=== PATIENT | female | born 1960 | race Caucasian/White ===

== ENCOUNTER 2023-03-14 12:52 | Outpatient (AMB) | payer MEDICARE, SELFPAY ==
[2023-03-14 13:00] VITALS: BP 106/62; PULSE 80; O2SAT 94; BMI 28.3
--- NOTE | 2023-03-14 13:00 | A.OFFPC_ITS ---
Vital Signs 03/14/23 13:00 Height 5 ft 6 in Weight 175 lb 0.752 oz BMI 28.3 BP 106/62 Blood Pressure Location Lt brachial Position Sitting Pulse 80 Pulse Source Pulse Oximeter Pulse Oximetry (%) 94 Oxygen Delivery Method Room Air Intake Visit Reasons: Annual Physical Traffic Counter Required: No Accompanied by: Self / Same As Patient Allergies clarithromycin [From Biaxin] Allergy (Unknown, Verified 03/14/23 13:19) Unknown codeine Allergy (Unknown, Verified 03/14/23 13:19) Unknown terbinafine [From Lamisil] Allergy (Unknown, Verified 03/14/23 13:19) Unknown trazodone Allergy (Unknown, Verified 03/14/23 13:19) unknown pregabalin [From Lyrica] Adverse Reaction (Intermediate, Verified 03/14/23 13:19) Depression - crying lotrimin spray Allergy (Mild, Uncoded 03/14/23 13:19) skin inflammation Medication List - Last Reconciled 03/14/23 by João Reyes MD albuterol sulfate 90 mcg/actuation (Ventolin HFA) 2 puffs inhalation Q6H PRN 30 days divalproex (Depakote) 125 mg PO QAM 90 days divalproex (Depakote) 500 mg PO BEDTIME 90 days duloxetine 60 mg PO BID 30 days gabapentin 600 mg PO TID 30 days hydrocortisone 1% 1 appl topical TID PRN NS hydroxyzine HCl Take 1 to 2 tablets PO every 8 hours PRN; ibuprofen 600 mg PO Q6H lorazepam 1 mg PO BID PRN 30 days pantoprazole 40 mg PO DAILY 90 days quetiapine 50 mg PO BID 90 days Tobacco use date assessed: 03/14/23 Dental Screening Dental Screen Date: 03/14/23 Did you have a dental visit in the last 12 months?: Yes Did you have a dental problem in the last 6 months where you did not have access to dental care?: No Was dental information given to patient?: Patient has dentist HPI Annual Physical HPI Details Patient comes in today for her annual physical examination States that she continues to be in pain all the time and feels miserable States that her gallbladder has been acting up a lot lately - has recurrent nausea, vomiting and abdominal cramping pain and every time she bends over, the symptoms get much worse She continues to refuse/decline offer to send her for further work ups including simple abdominal ultrasound, as she states that no matter what, she IS NOT going to have any surgery done even if the surgery is just a laparoscopic one States that she's had a couple of laparoscopic surgery done in the past and they still hurt a lot Would like to see if there is something that I can just prescribe for her to help with her abdominal pain She also continues to complain of severe pain in her feet - has significantly large corns and calluses on the soles of both feet and states that they hurt even when she is not on her feet and the pain escalates significantly when she tries to walk or put her weight on her feet Have offered to refer her to podiatry but she declined - states that she has already seen at least 2 podiatrists in the past and all they do is cut into her feet and they have not really made any difference so far as the lesions returned and she is still in a lot of pain Wants to know if there are any specialists that deal with corns/calluses that she can see Also continues to complain of severe low back pain and hip pains - states that her pain is often excruciating and she is tired of being in pain but declines offer to send her for imaging studies to update her condition Have also brought up referrals to the spine center here or to pain management as alternatives but she declined - states that she is NOT willing to go for any surgery or interventional procedures and will not change her mind on these Relates that she feels tired and fatigued all the time and throughout her visit today, her mood can swing from crying at one time to being animated instantaneously She also smells heavily of marijuana and states that smoking marijuana helps with some of her issues She has on and off headaches but denies any dizziness Denies any exertional chest pains, no increased SOB No change in bowel habits noted and she denies any acute urinary symptoms at present States that she had her labs done at the [facility] earlier this morning [facility] Medical History Suicide attempt by drug overdose Obesity (BMI 30-39.9) Bipolar disorder Anxiety Insomnia Constipation Chronic kidney disease (CKD), stage II (mild) Vitamin D deficiency Goiter Lichen planus Elevated liver enzymes Impaired fasting glucose Pure hypercholesterolemia Lumbar degenerative disc disease Surgical History History of laminectomy (~01/2011) History of spinal fusion (~01/2011) History of hysterectomy (~1993) Family History Father Scoliosis Mother Hypertension Cardiovascular disease Asthma Sister Asthma Arthritis Other Substance abuse Social History Housing: House Alcohol intake: current Alcohol intake frequency: holidays/special occasions only Patient Tobacco Use Status: Former Tobacco user e-Cigarette/Vaping Use: Never Used Second Hand Smoke Exposure: Yes Substance Use Type: Marijuana service: No Current occupational status: disabled Cognitive needs: No Hearing needs: No Vision needs: Yes Questionnaire PHQ-9 Over the last 2 weeks, how often have you been bothered by any of the following problems? 1. Little interest or pleasure in doing things: several days 2. Feeling down, depressed, or hopeless: several days 3. Trouble falling or staying asleep, or sleeping too much: several days 4. Feeling tired or having little energy: several days 5. Poor appetite or overeating: more than half the days 6. Feeling bad about yourself - or that you are a failure or have let yourself or your family down: not at all 7. Trouble concentrating on things, such as reading the newspaper or watching television: nearly every day 8. Moving or speaking so slowly that other people could have noticed. Or the opposite - being so fidgety or restless that you have been moving around a lot more than usual: more than half the days 9. Thoughts that you would be better off or of hurting yourself in some way: several days Total score: 12 Depression Screening Interpretation: Positive Depression Screening Follow-up: Existing condition and In treatment Depression Screening Done: Yes [id number] - PHQ-9 Billing: Yes Source: Developed by Drs. Robert Nina, Airam Lovett, Tay Jha and colleagues, with an educational cielo from [employer]. Thrive Questionnaire Date Thrive assessed: 03/14/23 I am a: Patient What is your living situation today?: I have a steady place to live Within the past 12 months, did the food you bought not last and you didn't have the money to get more?: Never true Within the past 12 months, did you worry whether your food would run out before you got money to buy more?: Never true Do you have trouble paying for medicines?: No Do you have trouble getting transportation to medical appointments?: No Do you have trouble paying your heating and electricity bill?: No Do you have trouble taking care of your child, family member or friend?: No Do you have trouble with day-to-day activities such as bathing, preparing meals, shopping, managing finances, etc.?: No Are you currently unemployed and looking for a job?: No Are you interested in more education?: No Please select the resources that you would like help with: None Currently or been in a relationship where the following occur: no concerns reported AUDIT C Alcohol Use Questionnaire (AUDIT-C) 1. How often do you have a drink containing alcohol?: Never 3. How often do you have six or more drinks on one occasion?: Never Total Score: 0 Score Reviewed/Action Taken: Yes LIYA-7 AMB Questionnaire LIYA-7 Date LIYA - 7 assessed: 03/14/23 Feeling nervous, anxious, or on edge: 3 = Nearly every day Not being able to stop or control worryin = Nearly every day Worrying too much about different things: 3 = Nearly every day Trouble relaxin = Nearly every day Being so restless that it is hard to sit still: 3 = Nearly every day Becoming easily annoyed or irritable: 3 = Nearly every day Feeling afraid as if something awful might happen: 1 = Several days Total LIYA-7 score (0-4 normal; 5-9 mild; 10-14 moderate; 15-21 severe): 19 Source: Developed by Drs. Robert Nina, Airam Lovett, Tay Jha and colleagues, with an educational cielo from [employer]. Review of Systems Const Reports fatigue, Denies fever(s) and Reports headache(s) (occasional) Eyes Denies blurry vision, Denies irritation and Denies itchy eyes ENT Denies dysphagia, Denies dizziness, Denies otalgia, Reports headache(s) (occasional), Reports neck pain, Denies odynophagia and Denies sore throat Card Denies chest pain, Denies palpitations and Reports dyspnea on exertion (mild) Resp Denies cough, Reports dyspnea on exertion (mild) and Denies wheezing GI Reports abdominal pain (recurrent, frequent, including over the RUQ area), Reports bloating (at times), Denies dysphagia, Denies heartburn, Reports diarrhea (intermittent - has IBS), Reports nausea (recurrent), Denies odynophagia and Reports vomiting (on and off) Denies difficulty voiding, Denies nocturia and Denies dysuria Musc Reports back pain (over the lower back - chronic) and Reports neck pain Skin/Breast Details: (+) onycholysis of toenails on both feet; (+) very large and painful corns/calluses on the soles of both feet Denies breast pain, Denies breast mass, Denies change in pigmentation, Denies lesions, Denies rash and Denies unusual bruising Neuro Denies dizziness and Reports headache(s) (occasional) Psych Reports anxiety, Reports depression (better controlled) and Denies suicidal ideation Endo Reports fatigue and Denies palpitations Rajinder/Lymph Denies easy bruising Aller/Immun Denies itchy eyes and Denies wheezing Physical exam (Primary Care) Vital Signs: Last Vital Signs Pulse 80 03/14/23 13:00 BP 106/62 03/14/23 13:00 Pulse Ox 94 03/14/23 13:00 Oxygen Delivery Method Room Air 03/14/23 13:00 BMI result Body Mass Index 28.3 Tobacco/Smoking Status: Tobacco use Status Tobacco use date assessed 03/14/23 03/14/23 13:09 Patient Tobacco Use Status Former Tobacco user 03/14/23 13:09 e-Cigarette/Vaping Use Never Used 03/14/23 13:09 PHQ-9: PHQ-9 Score PHQ-9: Total score 12 03/14/23 13:09 Depression Screening Interpretation: Positive Depression Screening Follow-up: Existing condition and In treatment Thrive Assessment: Date of Thrive Assessment Date Thrive assessed 03/14/23 03/14/23 13:09 Currently or been in a relationship where the following occur: no concerns reported Const General: no acute distress, alert and tired appearing Orientation/consciousness: patient oriented x3 HENMT Head: Yes normocephalic and Yes atraumatic Ears: TM's normal bilaterally and EAC's normal General nose exam: No nasal discharge present Face and sinus: Yes normal facial exam and Yes sinuses nontender Teeth and gingiva: dentition normal Throat: Yes posterior oropharynx normal and Yes tonsils normal (no TP congestion) Eyes Eyelids: Yes eyelids normal Conjunctivae: conjunctivae normal Pupils: Equal, round and reactive pupils present EOM: EOMs intact bilaterally Neck Neck: Yes no lymphadenopathy and Yes supple Thyroid: Thyroid normal Resp Auscultation: clear to auscultation bilaterally, no rales and no wheezes Cardio Rate: regular rate Rhythm: regular rhythm Heart sounds: no murmurs GI Palpation (GI): Soft to palpation, Tenderness to palpation present (GI) (diffuse, as well as over the RUQ area), no guarding, not rigid, No hepatosplenomegaly present and No Rebound tenderness present Auscultation: normal bowel sounds General: Yes no CVA tenderness Back/Spine/Pelvis Back: no CVA tenderness Thoracic/Lumbar Spine: lumbar spinal tenderness Sacroiliac joints: bilaterally tender to palpation Skin Rashes: no rashes Neuro General: patient oriented x3, moves all extremities, no focal motor deficits and CN's II-XI intact bilaterally Cranial nerves: Yes Equal, round and reactive pupils present Cognition (Neuro): normal cognition Gait exam (Neuro): Normal gait present Extrem Other: (+) onycholysis of toenails on both feet; (+) very large and tender (on palpation) corns and calluses on the soles of both feet; (+) 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 General: Yes no clubbing, cyanosis or edema Psych Affect: Labile affect present Assessment and Plan Assessment & Plan (1) Annual physical exam: Code(s): Z00.00 - Encounter for general adult medical examination without abnormal findings Plan: Will try to follow up the results of her labs done at the [facility] earlier this morning - patient is advised that we will check back with her regarding her results if there are any significantly unusual or abnormal results She is due for her colonoscopy, mammogram (last done in 2019) and bus matron exam and pap smear but she declined all of these Also declined offer for Cologuard testing as an alternative to her colonoscopy (2) Abdominal pain: Code(s): R10.9 - Unspecified abdominal pain Qualifiers: Abdominal location: unspecified location Qualified Code(s): R10.9 - Unspecified abdominal pain Plan: Has diffuse pain, including over the RUQ Patient is convinced that her symptoms are due to her gallbladder but she refuses to go for any imaging studies, including a simple abdominal US, as she states that she will not agree to go for surgery anyway so going for work ups is going to be just a waste of time She is looking for some Rx to help with her spasms - is advised that the only medication we prescribe that can help with GI spasms is Dicyclomine and these often help more with bowel spasms and may not really work at all for gall bladder spasms but patient would like to get an Rx for this to try anyway Have discussed with her that if surgery is inevitable, an elective surgery would be much easier and associated with less complications rather than waiting for when emergency surgery is indicated, such as in acute cholecystitis or cholangitis, wherein she would then have a much higher perioperative complications and even mortality but she remains unconvinced and will not go for additional work ups Have also advised that she can call for orders at any time if she changes her stance on this (3) Pure hypercholesterolemia: Code(s): E78.00 - Pure hypercholesterolemia, unspecified Plan: Reinforced low cholesterol diet Will try to follow up the results of her cholesterol levels done with her labs earlier today Patient continues to decline Rx for her cholesterol (4) Lumbar degenerative disc disease: Code(s): M51.36 - Other intervertebral disc degeneration, lumbar region Plan: Reinforced activity and weight-lifting restrictions Is now off opioids and states that her low back pain was somewhat manageable through smoking marijuana and with Gabapentin 600 mg TID and Duloxetine 60 mg BID for a while but lately, her pain has gotten worse again Lumbar spine x-rays done back in March 2021 did not show any acute findings - has old postsurgical changes and lumbar disc disease She declines offer to send her for lumbar spine MRI or CT for further evaluation Also declined offer to refer her to the [facility] or to pain management - is adamant that she will not have any surgeries or any type of invasive procedure or interventional treatments done Advised that other that those mentioned, I honestly do not know what else I can do to help her with her low back pain Have advised her that she can call at any time if she changes her mind about any of these and we can always order them if she is willing to pursue these (5) Onychomycosis: Code(s): B35.1 - Tinea unguium Plan: S/P Tx by podiatry - her toenails appear to be much more manageable now Follow up with podiatry as scheduled although she has not been back to see them in a while (6) Corns and callus: Code(s): L84 - Corns and callosities Plan: She has severe and large corns and calluses on both feet, which are most likely the source of majority of the pain in her feet Have advised that I do not know of any specialists that deal only or primarily with corns/calluses and that podiatry would be the specialty she will have to see but she declines referral - states that she has seen them at least twice in the past and all they want to do is cut into her feet Advised that outside of podiatry referral, I also do not know what else I can do to help with her feet issues and that she can always call for podiatry referral at any time if she changes her mind on this (7) History of gastric ulcer: Code(s): Z87.11 - Personal history of peptic ulcer disease Plan: Dietary restrictions reinforced Continue Pantoprazole 40 mg QD (8) Suicide attempt by drug overdose: Code(s): T50.902A - Poisoning by unspecified drugs, medicaments and biological substances, intentional self-harm, initial encounter Plan: Required hospital and ICU admission as well as Narcan drip; was admitted from 05/17/2022 to 05/25/2022 Currently denies any suicidal ideation or intent Her is now in charge of all of her meds and keeps them in a lock box and dispense them to her only when it is time to take them Follow up with psychiatry as scheduled (9) Anxiety: Code(s): F41.9 - Anxiety disorder, unspecified Plan: Continue Lorazepam 1 mg Q HS PRN; is also on Seroquel 50 mg BID, Depakote ER 125 mg Q AM 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 and Depakote ER 500 mg Q HS (10) Bipolar disorder: Code(s): F31.9 - Bipolar disorder, unspecified Qualifiers: Active/Remission status: currently active Current bipolar episode type: mixed Current episode severity: unspecified Qualified Code(s): F31.60 - Bipol ar disorder, current episode mixed, unspecified Plan: Continue Duloxetine 60 mg BID, Quetiapine 50 mg BID, Depakote ER 125 mg Q AM 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 and Depakote ER 500 mg Q HS (mood stabilizer) Follow up with psychiatry as scheduled Has been referred to [facility] for counseling previously Her affect was very labile throughout her visit today and she has gone from very tearful and sad to being very animated in her conversation within just a few seconds to then crying as she is in a lot of pain and does not know what to do but she again refuses all of the suggestions and recommendations that we have presented to her during her visit today Chidi is with her through out this whole visit and even he could not convince her to at least get some work ups done for her gallbladder and abdominal issues Plan Follow up in 4 months Medications: New dicyclomine 20 mg PO TID PRN 30 tabs 1RF abdominal cramping Review Patient declined Mammogram: 03/14/23 Declined Pap Smear: 03/14/23 Patient declined Colonoscopy: 03/14/23 Patient declined Colon Cancer Screen Lab: 03/14/23 Coding Level of Care Code Est Pt Prev Care 40-64y(65682) Diagnoses Annual physical exam Z00.00 Abdominal pain, unspecified abdominal location R10.9 Abdominal location: unspecified location Pure hypercholesterolemia E78.00 Lumbar degenerative disc disease M51.36 Onychomycosis B35.1 Corns and callus L84 History of gastric ulcer Z87.11 Suicide attempt by drug overdose T50.902A Anxiety F41.9 Bipolar affective disorder, current episode mixed, current episode severity unspecified F31.60 Active/Remission status: currently active Current bipolar episode type: mixed Current episode severity: unspecified
== END 2023-03-14 13:50 | disposition home or self-care (01) ==
PROVIDERS: PCP Internal Medicine; Visit Provider Internal Medicine
DX: Z00.00 Encounter for general adult medical examination without abnormal findings (principal); T50.902A Poisoning by unspecified drugs, medicaments and biological substances, intentional self-harm, initial encounter; F31.60 Bipolar disorder, current episode mixed, unspecified; R10.9 Unspecified abdominal pain; E78.00 Pure hypercholesterolemia, unspecified; M51.36 Other intervertebral disc degeneration, lumbar region; B35.1 Tinea unguium; L84 Corns and callosities; Z87.11 Personal history of peptic ulcer disease; F41.9 Anxiety disorder, unspecified
CPT/HCPCS: 99396

== ENCOUNTER 2023-06-05 08:56 | Outpatient (AMB) | payer MEDICARE, SELFPAY ==
--- NOTE | 2023-06-05 08:56 | MHC.PC.OV ---
Intake Visit Reasons: feet and spine issues/[phone] Allergies miconazole [From Remedy Antifungal] Allergy (Severe, Verified 06/05/23 09:45) skin in mouth peels clarithromycin [From Biaxin] Allergy (Unknown, Verified 06/05/23 09:45) Unknown codeine Allergy (Unknown, Verified 06/05/23 09:45) Unknown terbinafine [From Lamisil] Allergy (Unknown, Verified 06/05/23 09:45) Unknown trazodone Allergy (Unknown, Verified 06/05/23 09:45) unknown pregabalin [From Lyrica] Adverse Reaction (Intermediate, Verified 06/05/23 09:45) Depression - crying lotrimin spray Allergy (Mild, Uncoded 06/05/23 09:45) skin inflammation Medication List - Last Reconciled 06/05/23 by João Reyes MD albuterol sulfate 90 mcg/actuation (Ventolin HFA) 2 puffs inhalation Q6H PRN 30 days dicyclomine 20 mg PO TID PRN divalproex (Depakote) 125 mg PO QAM 90 days divalproex (Depakote) 500 mg PO BEDTIME 90 days duloxetine 60 mg PO BID 30 days gabapentin 600 mg PO TID 30 days hospital bed As directed hydrocortisone 1% 1 appl topical TID PRN NS hydroxyzine HCl Take 1 to 2 tablets PO every 8 hours PRN; ibuprofen 600 mg PO Q6H lorazepam 1 mg PO BID PRN 30 days mupirocin 2% 1 appl topical TID pantoprazole 40 mg PO DAILY 90 days quetiapine 50 mg PO BID 90 days [[facility] BED with Side Rails As directed] Tobacco use date assessed: 06/05/23 Dental Screening Dental Screen Date: 06/05/23 Did you have a dental visit in the last 12 months?: Yes Did you have a dental problem in the last 6 months where you did not have access to dental care?: No Was dental information given to patient?: Patient has dentist HPI feet and spine issues/[phone] HPI Details Patient's follow up visit / consultation today is done over video conference (iPhone/iPad/Google Meets/Doximity) - this is a TELEHEALTH visit Patient's current medications have been reviewed and verified with patient and/or caregiver/proxy and have been updated accordingly in the medication list Patient states that her younger brother recently and she has been feeling more depressed lately as a result Notes that her feet symptoms have actually been improving with her Rx lately so she is at least happy with that Relates that she has been experiencing increasing left shoulder pain and neck pain lately, especially over the upper interscapular areas just under the back of her neck - feels a bump over her vertebra somewhere along this area that she states has been there for a while now but feels that it has gotten bigger lately States that her left arm and fingers feel numb often Has also been experiencing some urinary incontinence for the past few weeks - states that she has not wet her bed but she often does not make it to bathroom in time Relates that she has completely no sensation of urinary or bladder fullness and usually just wakes up on her own after a while and she goes to the bathroom to empty her bladder before she has to go but has not been able to make it to the bathroom in time lately Still has occasional headaches but denies any dizziness Denies any chest pains, no increased SOB Still has on and off nausea and abdominal pain/cramping and on and off diarrhea / loose stools due to her IBS [facility] Medical History Suicide attempt by drug overdose Obesity (BMI 30-39.9) Bipolar disorder Anxiety Insomnia Constipation Chronic kidney disease (CKD), stage II (mild) Vitamin D deficiency Goiter Lichen planus Elevated liver enzymes Impaired fasting glucose Pure hypercholesterolemia Lumbar degenerative disc disease Surgical History History of laminectomy (~01/2011) History of spinal fusion (~01/2011) History of hysterectomy (~1993) Family History Father Scoliosis Mother Hypertension Cardiovascular disease Asthma Sister Asthma Arthritis Other Substance abuse Social History Housing: House Alcohol intake: current Alcohol intake frequency: holidays/special occasions only Patient Tobacco Use Status: Former Tobacco user e-Cigarette/Vaping Use: Never Used Second Hand Smoke Exposure: Yes Substance Use Type: Marijuana service: No Current occupational status: disabled Cognitive needs: No Hearing needs: No Vision needs: Yes Questionnaire PHQ-9 Over the last 2 weeks, how often have you been bothered by any of the following problems? 1. Little interest or pleasure in doing things: several days 2. Feeling down, depressed, or hopeless: several days 3. Trouble falling or staying asleep, or sleeping too much: several days 4. Feeling tired or having little energy: several days 5. Poor appetite or overeating: more than half the days 6. Feeling bad about yourself - or that you are a failure or have let yourself or your family down: not at all 7. Trouble concentrating on things, such as reading the newspaper or watching television: nearly every day 8. Moving or speaking so slowly that other people could have noticed. Or the opposite - being so fidgety or restless that you have been moving around a lot more than usual: more than half the days 9. Thoughts that you would be better off or of hurting yourself in some way: several days Total score: 12 Depression Screening Interpretation: Positive Depression Screening Follow-up: Existing condition and In treatment Depression Screening Done: Yes 59427 - PHQ-9 Billing: Yes Source: Developed by Drs. Robert Nina, Airam Lovett, Tay Jha and colleagues, with an educational cielo from [employer]. Thrive Questionnaire Date Thrive assessed: 06/05/23 I am a: Patient What is your living situation today?: I have a steady place to live Within the past 12 months, did the food you bought not last and you didn't have the money to get more?: Never true Within the past 12 months, did you worry whether your food would run out before you got money to buy more?: Never true Do you have trouble paying for medicines?: No Do you have trouble getting transportation to medical appointments?: No Do you have trouble paying your heating and electricity bill?: No Do you have trouble taking care of your child, family member or friend?: No Do you have trouble with day-to-day activities such as bathing, preparing meals, shopping, managing finances, etc.?: No Are you currently unemployed and looking for a job?: No Are you interested in more education?: No Please select the resources that you would like help with: None Currently or been in a relationship where the following occur: no concerns reported AUDIT C Alcohol Use Questionnaire (AUDIT-C) 1. How often do you have a drink containing alcohol?: Never 3. How often do you have six or more drinks on one occasion?: Never Total Score: 0 Score Reviewed/Action Taken: Yes LIYA-7 AMB Questionnaire LIYA-7 Date LIYA - 7 assessed: 06/05/23 Feeling nervous, anxious, or on edge: 3 = Nearly every day Not being able to stop or control worryin = Nearly every day Worrying too much about different things: 3 = Nearly every day Trouble relaxin = Nearly every day Being so restless that it is hard to sit still: 3 = Nearly every day Becoming easily annoyed or irritable: 3 = Nearly every day Feeling afraid as if something awful might happen: 1 = Several days Total LIYA-7 score (0-4 normal; 5-9 mild; 10-14 moderate; 15-21 severe): 19 Source: Developed by Drs. Robert Nina, Airam Lovett, Tay Jha and colleagues, with an educational cielo from [employer]. Review of Systems Const Reports fatigue, Denies fever(s) and Reports headache(s) (occasional) ENT Denies dysphagia, Denies dizziness, Denies otalgia, Reports headache(s) (occasional), Reports neck pain, Denies odynophagia and Denies sore throat Card Denies chest pain, Denies palpitations and Reports dyspnea on exertion (mild) Resp Denies cough, Reports dyspnea on exertion (mild) and Denies wheezing GI Reports abdominal pain (recurrent, frequent, including over the RUQ area), Reports bloating (at times), Denies dysphagia, Denies heartburn, Reports diarrhea (intermittent - has IBS), Reports nausea (recurrent), Denies odynophagia and Denies vomiting Reports urinary incontinence (see HPI) Musc Reports back pain (over the lower back - chronic), Reports neck pain and Reports radiating pain into limb (into the left arm - see HPI) Skin/Breast Details: (+) onycholysis of toenails on both feet; (+) very large and painful corns/calluses on the soles of both feet Denies rash Neuro Denies dizziness and Reports headache(s) (occasional) Psych Reports anxiety, Reports depression (increasing lately) and Denies suicidal ideation Endo Reports fatigue and Denies palpitations Rajinder/Lymph Denies easy bruising Aller/Immun Denies wheezing Physical exam (Primary Care) Vital Signs: Physical examination is not performed as visit / consultation today is done over videoconference - Telehealth visit All physical findings indicated here, if present, are as per patient's and / or caregivers / proxy's report and visual inspection over videoconference, if appropriate or applicable Tobacco/Smoking Status: Tobacco use Status Tobacco use date assessed 06/05/23 06/05/23 09:00 Patient Tobacco Use Status Former Tobacco user 06/05/23 09:00 e-Cigarette/Vaping Use Never Used 06/05/23 09:00 PHQ-9: PHQ-9 Score PHQ-9: Total score 12 06/05/23 09:00 Depression Screening Interpretation: Positive Depression Screening Follow-up: Existing condition and In treatment Thrive Assessment: Date of Thrive Assessment Date Thrive assessed 06/05/23 06/05/23 09:00 Currently or been in a relationship where the following occur: no concerns reported Telehealth Telehealth Location of provider rendering services: practice address Location of patient: address on file Patient Identification confirmed using: Name, : Yes Telehealth method: video ([employer] - [employer]) Patient verbally consented to treatment: Yes Patient verbally consented to billing insurance company: Yes Patient informed of any privacy concerns related to visit: Yes Minutes spent on Phone/Video with Pt.: 24 Assessment and Plan Assessment & Plan (1) Lumbar degenerative disc disease: Code(s): M51.36 - Other intervertebral disc degeneration, lumbar region Plan: Reinforced activity and weight-lifting restrictions Is now off opioids and states that her low back pain was somewhat manageable through smoking marijuana and with Gabapentin 600 mg TID and Duloxetine 60 mg BID for a while but lately, her pain has gotten worse again Lumbar spine x-rays done back in March 2021 did not show any acute findings - has old postsurgical changes and lumbar disc disease She declines offer to send her for lumbar spine MRI or CT for further evaluation but have advised patient that based on her recent symptoms, she will likely require an MRI for further evaluation but we will recheck/repeat her x-rays first and go from there She has also declined offer to refer her to the Spine Center here at [facility] [place] or to pain management as she remains adamant that she will not have any surgery or any type of invasive procedure or interventional treatment done to her spine Advised that other that those mentioned, I honestly do not know what else I can do to help her with her low back pain Have advised her that she can call at any time if she changes her mind about any of these and we can always order them if she is willing to pursue these (2) Urine incontinence: Code(s): R32 - Unspecified urinary incontinence Qualifiers: Urinary Incontinence type: urinary incontinence without sensory awareness Qualified Code(s): N39.42 - Incontinence without sensory awareness Plan: Patient is advised that her urinary symptoms are concerning for possible spinal cord compression (cauda equina syndrome) and she will likely require a lumbar and sacral spine MRI for further evaluation Will send her for repeat x-rays first and advised that we will check back with her as soon as her results are available for review (3) Cervical spine pain: Code(s): M54.2 - Cervicalgia Plan: Patient reports having a bump on her cervical spine that she feels has gotten bigger lately and coinciding with the symptoms in her left arm feeling worse Will send her for cervical spine x-rays [facility] for further evaluation She is also advised that depending on how her x-rays come out, she may require a cervical spine MRI (4) Left cervical radiculopathy: Code(s): M54.12 - Radiculopathy, cervical region Plan: Will check cervical spine x-rays for further evaluation but advised that an MRI may be needed at some point (5) Thoracic spine pain: Code(s): M54.6 - Pain in thoracic spine Plan: Will send her for thoracic spine x-rays as well for further evaluation (6) Pure hypercholesterolemia: Code(s): E78.00 - Pure hypercholesterolemia, unspecified Plan: Reinforced low cholesterol diet She is advised that we have not yet received any of her previous lab results so far and we will again try to obtain a copy of her labs results from when she had them done with [facility] sometime in February 2023 Patient continues to decline Rx for her cholesterol (7) Onychomycosis: Code(s): B35.1 - Tinea unguium Plan: S/P Tx by podiatry - her toenails appear to be much more manageable now Follow up with podiatry as scheduled although she has not been back to see them in a while (8) History of gastric ulcer: Code(s): Z87.11 - Personal history of peptic ulcer disease Plan: Dietary restrictions reinforced Continue Pantoprazole 40 mg QD (9) Suicide attempt by drug overdose: Code(s): T50.902A - Poisoning by unspecified drugs, medicaments and biological substances, intentional self-harm, initial encounter Plan: Required hospital and ICU admission as well as Narcan drip; was admitted from 05/17/2022 to 05/25/2022 Currently denies any suicidal ideation or intent Her is now in charge of all of her meds and keeps them in a lock box and dispense them to her only when it is time to take them Follow up with psychiatry as scheduled (10) Anxiety: Code(s): F41.9 - Anxiety disorder, unspecified Plan: Continue Lorazepam 1 mg Q HS PRN; is also on Depakote ER 125 mg Q AM to help with her cinetechnician anxiety and Depakote ER 500 mg Q HS Will increase her Seroquel from 50 mg BID to 50 mg in AM and 100 mg Q HS (11) Bipolar disorder: Code(s): F31.9 - Bipolar disorder, unspecified Qualifiers: Active/Remission status: currently active Current bipolar episode type: mixed Current episode severity: unspecified Qualified Code(s): F31.60 - Bipolar disorder, current episode mixed, unspecified Plan: Continue Duloxetine 60 mg BID, Depakote ER 125 mg Q AM to help with her cinetechnician anxiety and Depakote ER 500 mg Q HS (mood stabilizer) Will increase her Seroquel from 50 mg BID to 50 mg in AM and 100 mg Q HS She will also have her Gabapentin increased to 600 mg QID dosing and this should hopefully help with both her chronic pain as well as act as a mood stabilizer as well Follow up with psychiatry as scheduled She is currently receiving counseling from [facility] regularly and is advised to continue as scheduled Plan Follow up as scheduled in August 2023 Orders: Orders XR lumbar spine 2-3V Today M51.36 - Other intervertebral disc degeneration, lumbar region, R32 - Unspecified urinary incontinence, R39.198 - Other difficulties with micturition XR cervical spine 3V Today M54.12 - Radiculopathy, cervical region, M54.2 - Cervicalgia XR thoracic spine 3V Today M54.6 - Pain in thoracic spine XR sacrum coccyx min 2V Today R32 - Unspecified urinary incontinence, R39.198 - Other difficulties with micturition Medications: Changed From gabapentin 600 mg PO TID 30 days 90 tabs 0RF To gabapentin 600 mg PO QID 30 days 120 tabs 0RF From quetiapine 50 mg PO BID 90 days 180 tabs 1RF F31.60 - Bipolar disorder, current episode mixed, unspecified To quetiapine Take 1 tablet in AM and 2 tablets at bedtime orally; 90 days 180 tabs 1RF F31.60 - Bipolar disorder, current episode mixed, unspecified Coding Level of Care Code Tele Est Pt Level 4 (86159) Diagnoses Lumbar degenerative disc disease M51.36 Urinary incontinence without sensory awareness N39.42 Urinary Incontinence type: urinary incontinence without sensory awareness Cervical spine pain M54.2 Left cervical radiculopathy M54.12 Thoracic spine pain M54.6 Pure hypercholesterolemia E78.00 Onychomycosis B35.1 History of gastric ulcer Z87.11 Suicide attempt by drug overdose T50.902A Anxiety F41.9 Bipolar affective disorder, current episode mixed, current episode severity unspecified F31.60 Active/Remission status: currently active Current bipolar episode type: mixed Current episode severity: unspecified
== END 2023-06-05 10:34 | disposition home or self-care (01) ==
LOC: HO.HMGH 08:56
PROVIDERS: PCP Internal Medicine; Visit Provider Internal Medicine
DX: M51.36 Other intervertebral disc degeneration, lumbar region (principal); N39.42 Incontinence without sensory awareness; M54.2 Cervicalgia; M54.12 Radiculopathy, cervical region; M54.6 Pain in thoracic spine; E78.00 Pure hypercholesterolemia, unspecified; B35.1 Tinea unguium; Z87.11 Personal history of peptic ulcer disease; F41.9 Anxiety disorder, unspecified
CPT/HCPCS: 99214

== ENCOUNTER 2023-09-13 12:31 | Outpatient (AMB) | payer MEDICARE, SELFPAY ==
[2023-09-13 12:37] VITALS: BP 110/72; BMI 29.5
--- NOTE | 2023-09-13 12:37 | A.OFFPC_ITS ---
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: No Accompanied by: Spouse Allergies miconazole [From Remedy Antifungal] Allergy (Severe, Verified 09/13/23 12:54) skin in mouth peels clarithromycin [From Biaxin] Allergy (Unknown, Verified 09/13/23 12:54) Unknown codeine Allergy (Unknown, Verified 09/13/23 12:54) Unknown terbinafine [From Lamisil] Allergy (Unknown, Verified 09/13/23 12:54) Unknown trazodone Allergy (Unknown, Verified 09/13/23 12:54) unknown pregabalin [From Lyrica] Adverse Reaction (Intermediate, Verified 09/13/23 12:54) Depression - crying lotrimin spray Allergy (Mild, Uncoded 09/13/23 12:54) skin inflammation Medication List - Last Reconciled 09/13/23 by João Reyes MD albuterol sulfate 90 mcg/actuation (Ventolin HFA) 2 puffs inhalation Q6H PRN 30 days dicyclomine 20 mg PO TID PRN divalproex (Depakote) 125 mg PO QAM 90 days divalproex (Depakote) 500 mg PO BEDTIME 90 days duloxetine 60 mg PO BID 30 days gabapentin 600 mg PO QID 30 days hydrocortisone 1% 1 appl topical TID PRN NS lorazepam 1 mg PO BID PRN 30 days mupirocin 2% 1 appl topical TID pantoprazole 40 mg PO DAILY 90 days quetiapine Take 1 tablet in AM and 2 tablets at bedtime orally; 90 days [[facility] BED with Side Rails As directed] tizanidine 4 mg PO Q8H PRN 30 days Tobacco use date assessed: 06/05/23 Dental Screening Dental Screen Date: 06/05/23 HPI 6mth f/u HPI Details Patient comes in today for her follow up visit She continues to complain of increased pain all over, including over her neck, upper back, lower back, both feet, hips and legs States that she is in constant pain all over 12/12 She takes all of her current Rx as prescribed but she does not really know if they are even helping or not - states that her is the one who gives out her meds for her to take when it is time for them States that she has also been smoking marijuana lately to help and that any help is better than nothing Is currently requesting for a referral to pain management or specialists in [place] who she feels may be able to help her better - states that she will not go to any other doctors here in [facility] anymore and refuses to go to [facility] or any other [facility] hospitals here in the [facility] She appears somewhat distant and standoffish during her visit today and sometimes somewhat antagonistic when asked certain questions regarding her pain - states that no one would feel good when they are in constant and severe pain all day long It appears that she has already reached out to pain management in [place] as she then states that they have a PA there who will see patients and order the MRI and tests that she will need as she prefers to get all of the requisite testing that will be needed by pain management over in [place] as well and not have any of them done here locally Relates (+) occasional headaches but denies any dizziness Denies any chest pains, no increased SOB No nausea/vomiting, no abdominal pain No change in bowel habits noted [facility] Medical History Suicide attempt by drug overdose Obesity (BMI 30-39.9) Bipolar disorder Anxiety Insomnia Constipation Chronic kidney disease (CKD), stage II (mild) Vitamin D deficiency Goiter Lichen planus Elevated liver enzymes Impaired fasting glucose Pure hypercholesterolemia Lumbar degenerative disc disease Surgical History History of laminectomy (~01/2011) History of spinal fusion (~01/2011) History of hysterectomy (~1993) Family History Father Scoliosis Mother Hypertension Cardiovascular disease Asthma Sister Asthma Arthritis Other Substance abuse Social History Housing: House Alcohol intake: current Alcohol intake frequency: holidays/special occasions only Patient Tobacco Use Status: Former Tobacco user e-Cigarette/Vaping Use: Never Used Second Hand Smoke Exposure: Yes Substance Use Type: Marijuana service: No Current occupational status: disabled Cognitive needs: No Hearing needs: No Vision needs: Yes Questionnaire Thrive Questionnaire Date Thrive assessed: 06/05/23 LIYA-7 AMB Questionnaire LIYA-7 Date LIYA - 7 assessed: 06/05/23 Source: Developed by Drs. Robert Nnia, Airam Lovett, Tay Jha and colleagues, with an educational cielo from [employer]. Review of Systems Const Reports fatigue, Denies fever(s) and Reports headache(s) (occasional) ENT Denies dysphagia, Denies dizziness, Denies otalgia, Reports headache(s) (occa sional), Reports neck pain, Denies odynophagia and Denies sore throat Card Denies chest pain, Denies palpitations and Reports dyspnea on exertion (mild) Resp Denies cough, Reports dyspnea on exertion (mild) and Denies wheezing GI Reports abdominal pain (recurrent, frequent, including over the RUQ area), Reports bloating (at times), Denies dysphagia, Denies heartburn, Reports diarrhea (intermittent - has IBS), Reports nausea (recurrent), Denies odynophagia and Denies vomiting Reports urinary incontinence (see HPI) Musc Reports as per HPI, Reports back pain (over the lower back - chronic), Reports neck pain and Reports radiating pain into limb (into the left arm - see HPI) Skin/Breast Details: (+) onycholysis of toenails on both feet; (+) very large and painful corns/calluses on the soles of both feet Denies rash Neuro Denies dizziness and Reports headache(s) (occasional) Psych Reports anxiety, Reports depression (increasing lately) and Denies suicidal ideation Endo Reports fatigue and Denies palpitations Rajinder/Lymph Denies easy bruising Aller/Immun Denies wheezing Physical exam (Primary Care) BMI result Body Mass Index 29.5 Tobacco/Smoking Status: Tobacco use Status Tobacco use date assessed 06/05/23 06/05/23 09:00 Patient Tobacco Use Status Former Tobacco user 06/05/23 09:00 e-Cigarette/Vaping Use Never Used 06/05/23 09:00 Thrive Assessment: Date of Thrive Assessment Date Thrive assessed 06/05/23 06/05/23 09:00 Const General: no acute distress and alert Neck Neck: Yes no lymphadenopathy and Yes supple Thyroid: Thyroid normal Resp Auscultation: clear to auscultation bilaterally, no rales and no wheezes Cardio Rate: regular rate Rhythm: regular rhythm Heart sounds: no murmurs GI Palpation (GI): Soft to palpation and nontender Auscultation: normal bowel sounds General: Yes no CVA tenderness Back/Spine/Pelvis Back: no CVA tenderness Cervical Spine: Cervical spine tenderness Thoracic/Lumbar Spine: thoracic spinal tenderness and lumbar spinal tenderness Sacroiliac joints: bilaterally tender to palpation Skin Rashes: no rashes Extrem Other: (+) onycholysis of toenails on both feet; (+) very large and tender (on palpation) corns and calluses on the soles of both feet; (+) 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 BASED ON PREVIOUS EXAM - exam NOT done or repeated today General: Yes no clubbing, cyanosis or edema Assessment and Plan Assessment & Plan (1) Lumbar degenerative disc disease: Code(s): M51.36 - Other intervertebral disc degeneration, lumbar region Plan: Reinforced activity and weight-lifting restrictions Patient states that her low back pain has been somewhat manageable through smoking marijuana and with Gabapentin 600 mg TID and Duloxetine 60 mg BID for a while but her pain has gotten a lot worse lately and states that she does not know anymore if anything is helping Lumbar spine x-rays done back in March 2021 revealed (+) old postsurgical changes and lumbar disc disease She has been sent for repeat x-rays sometime last year but she did not get them done and has continually declined offer to send her for lumbar spine MRI or CT for further evaluation - states that she will NOT go to [facility] or any 2-star hospital here in [facility] to get anymore tests done She has also declined offer to refer her to [place] [facility] [facility] [place] [facility] or to pain management as she remains adamant that she will not have any surgery or any type of invasive procedures or interventional treatments done to her spine here and is asking now to be referred to specialists in [place] instead at the [facility] - referral done (2) Degenerative joint disease of cervical spine: Code(s): M47.812 - Spondylosis without myelopathy or radiculopathy, cervical region Qualifiers: Spinal osteoarthritis complication: unspecified spinal osteoarthritis Qualified Code(s): M47.812 - Spondylosis without myelopathy or radiculopathy, cervical region Plan: Cervical spine x-rays done at [facility] in 2023 revealed (+) mild to moderate degenerative changes of the cervical spine Will refer her to [place] for this issue as well (3) Thoracic spine pain: Code(s): M54.6 - Pain in thoracic spine Plan: She was previously sent for thoracic spine x-rays as well but this was not done and no results are available regarding this Per request, we will refer her to [place] to see specialists there regarding her chronic pain (4) Pure hypercholesterolemia: Code(s): E78.00 - Pure hypercholesterolemia, unspecified Plan: Results of her labs done at [facility] back in February 2023 reviewed and discussed with patient - she is advised that her cholesterol levels were elevated on her recent labs - total cholesterol was at 223 mg/dl and LDL cholesterol at 158 mg/dl Reinforced low cholesterol diet Patient continues to decline Rx for her high cholesterol - states now that she does not ever recall that I spoke to her in the past about high cholesterol levels Have reminded her, based on review of her records as far back as 2017, that she has not had her cholesterol levels done between 07/2017 until 02/2023 and that her numbers from 2011 through 2017 were also high but as she is a vegetarian, she chose to continue on diet modification and not take any Rx Advised that we can follow up on these again later on when her pain is better controlled and her mood is better (5) Urine incontinence: Code(s): R32 - Unspecified urinary incontinence Qualifiers: Urinary Incontinence type: urinary incontinence without sensory awareness Qualified Code(s): N39.42 - Incontinence without sensory awareness Plan: Patient has been advised previously that her urinary symptoms are concerning for possible spinal cord compression (cauda equina syndrome) and she will likely require a lumbar and sacral spine MRI for further evaluation We sent her previously for sacral anc coccygeal x-rays a few months ago which did not show any acute changes (6) Onychomycosis: Code(s): B35.1 - Tinea unguium Plan: S/P Tx by podiatry She has not been back to see podiatry as she felt that they butchered her foot and she refuses to go back to see them (7) History of gastric ulcer: Code(s): Z87.11 - Personal history of peptic ulcer disease Plan: Dietary restrictions reinforced Continue Pantoprazole 40 mg QD (8) Suicide attempt by drug overdose: Code(s): T50.902A - Poisoning by unspecified drugs, medicaments and biological substances, intentional self-harm, initial encounter Plan: Required hospital and ICU admission as well as Narcan drip; was admitted from 05/17/2022 to 05/25/2022 She currently denies any suicidal ideation or intent Her is now in charge of all of her meds and keeps them in a lock box and dispense them to her only when it is time to take them Follow up with psychiatry as scheduled (9) Anxiety: Code(s): F41.9 - Anxiety disorder, unspecified Plan: Continue Lorazepam 1 mg Q HS PRN; is also on Depakote ER 125 mg Q AM to 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 and Depakote ER 500 mg Q HS Continue Seroquel 50 mg in AM and 100 mg Q HS (10) Bipolar disorder: Code(s): F31.9 - Bipolar disorder, unspecified Qualifiers: Active/Remission status: currently active Current bipolar episode type: mixed Current episode severity: unspecified Qualified Code(s): F31.60 - Bipolar disorder, current episode mixed, unspecified Plan: Continue Duloxetine 60 mg BID, Depakote ER 125 mg Q AM to 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 and Depakote ER 500 mg Q HS (mood stabilizer) Continue Seroquel 50 mg in AM and 100 mg Q HS Continue Gabapentin 600 mg QID Follow up with psychiatry as scheduled She is currently receiving counseling from [facility] regularly and is advised to continue as scheduled Plan Follow up in 6 months Orders: Referrals Pain Management Referral G89.4 - Chronic pain syndrome, M47.22 - Other spondylosis with radiculopathy, cervical region, M51.36 - Other intervertebral disc degeneration, lumbar region, M54.50 - Low back pain, unspecified, M96.1 - Postlaminectomy syndrome, not elsewhere classified Coding Level of Care Code Est Pt Level 4 (89324) Diagnoses Lumbar degenerative disc disease M51.36 Osteoarthritis of cervical spine, unspecified spinal osteoarthritis complication status M47.812 Spinal osteoarthritis complication: unspecified spinal osteoarthritis Thoracic spine pain M54.6 Pure hypercholesterolemia E78.00 Urinary incontinence without sensory awareness N39.42 Urinary Incontinence type: urinary incontinence without sensory awareness Onychomycosis B35.1 History of gastric ulcer Z87.11 Suicide attempt by drug overdose T50.902A Anxiety F41.9 Bipolar affective disorder, current episode mixed, current episode severity unspecified F31.60 Active/Remission status: currently active Current bipolar episode type: mixed Current episode severity: unspecified
== END 2023-09-13 13:17 | disposition home or self-care (01) ==
PROVIDERS: PCP Internal Medicine; Visit Provider Internal Medicine
DX: M51.36 Other intervertebral disc degeneration, lumbar region (principal); M47.812 Spondylosis without myelopathy or radiculopathy, cervical region; E78.00 Pure hypercholesterolemia, unspecified; N39.42 Incontinence without sensory awareness; B35.1 Tinea unguium; Z87.11 Personal history of peptic ulcer disease; F41.9 Anxiety disorder, unspecified
CPT/HCPCS: 99214

== ENCOUNTER 2024-03-15 13:25 | Outpatient (AMB) | payer MEDICARE, SELFPAY ==
--- NOTE | 2024-03-15 13:26 | MHC.PC.OV ---
Vital Signs 03/15/24 13:27 Height 5 ft 6 in Weight 189 lb 8 oz BMI 30.6 BP 120/68 Blood Pressure Location Lt brachial Position Sitting Pulse 68 Pulse Source Pulse Oximeter Pulse Oximetry (%) 97 Oxygen Delivery Method Room Air Intake Visit Reasons: 6mth f/u - see comments Intake Note: Patient is here to follow up on LDDD, Anxiety, Hypercholesterolemia. Pt decline flu shot today. 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 per policy Accompanied by: Self / Same As Patient Allergies miconazole [From Remedy Antifungal] Allergy (Severe, Verified 03/15/24 13:56) skin in mouth peels clarithromycin [From Biaxin] Allergy (Unknown, Verified 03/15/24 13:56) Unknown codeine Allergy (Unknown, Verified 03/15/24 13:56) Unknown terbinafine [From Lamisil] Allergy (Unknown, Verified 03/15/24 13:56) Unknown trazodone Allergy (Unknown, Verified 03/15/24 13:56) unknown pregabalin [From Lyrica] Adverse Reaction (Intermediate, Verified 03/15/24 13:56) Depression - crying lotrimin spray Allergy (Mild, Uncoded 03/15/24 13:56) skin inflammation Medication List - Last Reconciled 03/15/24 by João Reyes MD albuterol sulfate 90 mcg/actuation (Ventolin HFA) 2 puffs inhalation Q6H PRN 30 days dicyclomine 20 mg PO TID PRN divalproex (Depakote) 500 mg PO BEDTIME 90 days divalproex (Depakote) 125 mg PO QAM 90 days duloxetine 60 mg PO BID 30 days gabapentin 600 mg PO QID 90 days lorazepam 1 mg PO BID PRN 30 days mupirocin 2% 1 appl topical TID pantoprazole 40 mg PO DAILY 90 days quetiapine Take 1 tablet in AM and 2 tablets at bedtime orally; 90 days [[facility] BED with Side Rails As directed] tramadol 50 mg PO BID-TID PRN Tobacco use date assessed: 03/15/24 Fall risk assessment: 1 Fall in past year Last assessed Fall Risk: 03/15/24 Dental Screening Dental Screen Date: 06/05/23 HPI 6mth f/u - see comments HPI Details Patient comes in today for her follow up visit States that she is getting by with all of her problems and that she has been smoking marijuana to help with her chronic pains She continues to complain of increased pain all over, including over her neck, upper back, lower back, both feet, hips and legs, and states that she is in constant pain all over 12/12 States that she started smoking marijuana mostly just to help with her pain and anxiety but is now smoking marijuana constantly and is unable to stop - reports that she starts experiencing withdrawal symptoms if she does not smoke for even just a few minutes and now realizes that she needs help in quitting She denies any dizziness but still has on and off headaches Denies any chest pains, no increased SOB (+) on and off nausea but denies any vomiting; still has on and off RUQ abdominal pain that are not associated with oral intake No change in bowel habits noted She also needs her Albuterol inhaler Rx refilled She had her follow up labs done at [facility] in November 2023 - to discuss her results [facility] Medical History Suicide attempt by drug overdose Obesity (BMI 30-39.9) Bipolar disorder Anxiety Insomnia Constipation Chronic kidney disease (CKD), stage II (mild) Vitamin D deficiency Goiter Lichen planus Elevated liver enzymes Impaired fasting glucose Pure hypercholesterolemia Lumbar degenerative disc disease Surgical History History of laminectomy (~01/2011) History of spinal fusion (~01/2011) History of hysterectomy (~1993) Family History Father Scoliosis Mother Hypertension Cardiovascular disease Asthma Sister Asthma Arthritis Other Substance abuse Social History Housing: House Alcohol intake: current Alcohol intake frequency: holidays/special occasions only Patient Tobacco Use Status: Former Tobacco user e-Cigarette/Vaping Use: Never Used Second Hand Smoke Exposure: Yes Substance Use Type: Marijuana service: No Current occupational status: disabled Cognitive needs: No Hearing needs: No Vision needs: Yes Questionnaire Thrive Questionnaire Date Thrive assessed: 06/05/23 LIYA-7 AMB Questionnaire LIYA-7 Date LIYA - 7 assessed: 06/05/23 Source: Developed by Drs. Robert Nina, Airam Lovett, Tay Jha and colleagues, with an educational cielo from [employer] Review of Systems Const Denies chills, Reports fatigue, Denies fever(s) and Reports headache(s) (occasional) ENT Denies dysphagia, Denies dizziness, Denies otalgia, Reports headache(s) (occasional), Reports neck pain (chronic), Denies odynophagia and Denies sore throat Card Denies chest pain, Denies palpitations and Reports dyspnea on exertion (mild) Resp Denies chest congestion, Denies cough and Reports dyspnea on exertion (mild) GI Reports abdominal pain (recurrent, frequent, including over the RUQ area), Denies dysphagia, Denies heartburn, Reports diarrhea (intermittent - has IBS), Reports nausea (recurrent), Denies odynophagia and Denies vomiting Reports urinary incontinence (see HPI) Musc Reports as per HPI, Reports back pain (over the lower back - chronic), Reports neck pain (chronic) and Reports radiating pain into limb (into the left arm - see HPI) Skin/Breast Details: (+) onycholysis of toenails on both feet; (+) very large and painful corns/calluses on the soles of both feet Denies rash Neuro Denies dizziness and Reports headache(s) (occasional) Psych Reports anxiety, Reports depression (increasing lately) and Denies suicidal ideation Endo Reports fatigue and Denies palpitations Rajinder/Lymph Denies easy bruising Physical exam (Primary Care) Vital Signs: Last Vital Signs Pulse 68 03/15/24 13:27 BP 120/68 03/15/24 13:27 Pulse Ox 97 03/15/24 13:27 Oxygen Delivery Method Room Air 03/15/24 13:27 BMI result Body Mass Index 30.6 Tobacco/Smoking Status: Tobacco use Status Tobacco use date assessed 03/15/24 03/15/24 13:36 Patient Tobacco Use Status Former Tobacco user 03/15/24 13:36 e-Cigarette/Vaping Use Never Used 03/15/24 13:36 Thrive Assessment: Date of Thrive Assessment Date Thrive assessed 06/05/23 03/15/24 13:36 Const General: no acute distress and alert Neck Neck: Yes no lymphadenopathy and Yes supple Thyroid: Thyroid normal Resp Auscultation: clear to auscultation bilaterally, no rales and no wheezes Cardio Rate: regular rate Rhythm: regular rhythm Heart sounds: no murmurs GI Palpation (GI): Soft to palpation and nontender Auscultation: normal bowel sounds General: Yes no CVA tenderness Back/Spine/Pelvis Back: no CVA tenderness Cervical Spine: Cervical spine tenderness Thoracic/Lumbar Spine: thoracic spinal tenderness and lumbar spinal tenderness Sacroiliac joints: bilaterally tender to palpation Skin Rashes: no rashes Extrem Other: (+) onycholysis of toenails on both feet; (+) very large and tender (on palpation) corns and calluses on the soles of both feet; (+) 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 BASED ON PREVIOUS EXAM - exam NOT done or repeated today General: Yes no clubbing, cyanosis or edema Coding Level of Care Code Est Pt Level 4 (79446) Diagnoses Cannabis use disorder F12.90 Degeneration of intervertebral disc of lumbar region with discogenic back pain M51.360 Disc-related pain type: discogenic back pain only Osteoarthritis of cervical spine, unspecified spinal osteoarthritis complication status M47.812 Spinal osteoarthritis complication: unspecified spinal osteoarthritis Thoracic spine pain M54.6 Pure hypercholesterolemia E78.00 History of gastric ulcer Z87.11 Urinary incontinence without sensory awareness N39.42 Urinary Incontinence type: urinary incontinence without sensory awareness Suicide attempt by drug overdose T50.902A Anxiety F41.9 Bipolar affective disorder, current episode mixed, current episode severity unspecified F31.60 Active/Remission status: currently active Current bipolar episode type: mixed Current episode severity: unspecified Assessment & Plan Assessment & Plan (1) Cannabis use disorder: Code(s): F12.90 - Cannabis use, unspecified, uncomplicated Category: Medical Plan: Have advised patient that her current marijuana use appears to be helping her not only with her chronic pain but also with her anxiety and mood disorder and that it will not be easy to try to get her OFF marijuana completely without aggravating or exacerbating these issues Is advised that with the severity of her anxiety and bipolar disorder, she should undergo detox under professional guidance and we cannot just prescribe her some medications to help with her withdrawal symptoms and have her come off marijuana on her own, as we would expect her anxiety and mood disorder, not to mention her chronic pain, to get a lot worse while she is coming off marijuana Will refer her to addiction medicine here at [facility] to see what they would recommend with regards to helping her come off cannabis (2) Lumbar degenerative disc disease: Code(s): M51.36 - Other intervertebral disc degeneration, lumbar region Category: Medical Qualifiers: Disc-related pain type: discogenic back pain only Qualified Code(s): M51.360 - Other intervertebral disc degeneration, lumbar region with discogenic back pain only Plan: Reinforced activity and weight-lifting restrictions Patient states that her low back pain has been somewhat manageable through smoking marijuana and with Gabapentin 600 mg TID and Duloxetine 60 mg BID for a while but she is still in pain all over all day long Lumbar spine x-rays done back in March 2021 revealed (+) old postsurgical changes and lumbar disc disease She has been sent for repeat x-rays sometime last year but she did not get them done and has continually declined offer to send her for lumbar spine MRI or CT for further evaluation - states that she will NOT go to [facility] or any [facility] hospital here in [facility] to get anymore tests done She has also declined offer to refer her to the Spine Center here at [facility] or to pain management as she remains adamant that she will not have any surgery or any type of invasive procedures or interventional treatments done to her spine here and asked to be referred to specialists in [place] instead at the [facility] and [facility] - referral was done for her at her last visit in August 2023 (3) Degenerative joint disease of cervical spine: Code(s): M47.812 - Spondylosis without myelopathy or radiculopathy, cervical region Category: Medical Qualifiers: Spinal osteoarthritis complication: unspecified spinal osteoarthritis Qualified Code(s): M47.812 - Spondylosis without myelopathy or radiculopathy, cervical region Plan: Cervical spine x-rays done at [facility] in 2023 revealed (+) mild to moderate degenerative changes of the cervical spine She was referred to [place] for this issue as well (4) Thoracic spine pain: Code(s): M54.6 - Pain in thoracic spine Category: Medical Plan: She was previously sent for thoracic spine x-rays as well but this was not done and no results are available regarding this Per request, she was referred to [place] as well to see specialists there regarding her chronic pain (5) Pure hypercholesterolemia: Code(s): E78.00 - Pure hypercholesterolemia, unspecified Category: Medical Plan: Results of her labs done at [facility] back in November 2023 reviewed and discussed with patient Her labs do not appear to include a fasting lipid profile Have reminded patient that her total cholesterol was at 223 mg/dl and LDL cholesterol at 158 mg/dl when last checked last year Her numbers from 2012 through 2018 were also high but as she is a vegetarian, she chose to continue on diet modification and not take any Rx Reinforced low cholesterol diet Patient continues to decline Rx for her high cholesterol Have advised her that we can follow up on these again later on when her pain is better controlled and her mood is better (6) History of gastric ulcer: Code(s): Z87.11 - Personal history of peptic ulcer disease Category: Medical Plan: Dietary restrictions reinforced Continue Pantoprazole 40 mg QD (7) Urine incontinence: Code(s): R32 - Unspecified urinary incontinence Category: Medical Qualifiers: Urinary Incontinence type: urinary incontinence without sensory awareness Qualified Code(s): N39.42 - Incontinence without sensory awareness Plan: Patient has been advised previously that her urinary symptoms are concerning for possible spinal cord compression (cauda equina syndrome) and she will likely require a lumbar and sacral spine MRI for further evaluation We sent her previously for sacral anc coccygeal x-rays a few months ago which did not show any acute changes (8) Suicide attempt by drug overdose: Code(s): T50.902A - Poisoning by unspecified drugs, medicaments and biological substances, intentional self-harm, initial encounter Category: Medical Plan: She required hospital and ICU admission as well as Narcan drip and was admitted from 05/17/2022 to 05/25/2022 She currently denies any suicidal ideation or intent Her is now in charge of all of her meds and keeps them in a lock box and dispense them to her only when it is time to take them Follow up with psychiatry as scheduled (9) Anxiety: Code(s): F41.9 - Anxiety disorder, unspecified Category: Medical Plan: Continue Lorazepam 1 mg Q HS PRN; is also on 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 and Depakote ER 500 mg Q HS Continue Seroquel 50 mg in AM and 100 mg Q HS Her marijuana use also appears to be helping with her anxiety and there are concerns that her anxiety will get a lot worse while she is coming off her marijuana use (10) Bipolar disorder: Code(s): F31.9 - Bipolar disorder, unspecified Category: Medical Qualifiers: Active/Remission status: currently active Current bipolar episode type: mixed Current episode severity: unspecified Qualified Code(s): F31.60 - Bipolar disorder, current episode mixed, unspecified Plan: Continue Duloxetine 60 mg BID, 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
[2024-03-15 13:27] VITALS: BP 120/68; PULSE 68; O2SAT 97; BMI 30.6
== END 2024-03-15 14:15 | disposition home or self-care (01) ==
PROVIDERS: PCP Internal Medicine; Visit Provider Internal Medicine
DX: F12.90 Cannabis use, unspecified, uncomplicated (principal); M51.360 Other intervertebral disc degeneration, lumbar region with discogenic back pain only; M47.812 Spondylosis without myelopathy or radiculopathy, cervical region; M54.6 Pain in thoracic spine; E78.00 Pure hypercholesterolemia, unspecified; Z87.11 Personal history of peptic ulcer disease; N39.42 Incontinence without sensory awareness; T50.902A Poisoning by unspecified drugs, medicaments and biological substances, intentional self-harm, initial encounter; F41.9 Anxiety disorder, unspecified; F31.60 Bipolar disorder, current episode mixed, unspecified

== ENCOUNTER → 2024-03-15 13:25 | Outpatient (BNVA) | payer MEDICARE, SELFPAY | PROVIDERS: PCP Internal Medicine; Visit Provider Internal Medicine | DX: F12.90 Cannabis use, unspecified, uncomplicated (principal); M51.360 Other intervertebral disc degeneration, lumbar region with discogenic back pain only; M47.812 Spondylosis without myelopathy or radiculopathy, cervical region; E78.00 Pure hypercholesterolemia, unspecified; N39.42 Incontinence without sensory awareness; Z87.11 Personal history of peptic ulcer disease; F41.9 Anxiety disorder, unspecified; T50.902D Poisoning by unspecified drugs, medicaments and biological substances, intentional self-harm, subsequent encounter; F31.60 Bipolar disorder, current episode mixed, unspecified | CPT/HCPCS: 99212 ==

== ENCOUNTER 2024-04-11 12:45 | Outpatient (AMB) | payer MEDICARE, SELFPAY ==
--- NOTE | 2024-04-11 12:46 | MHC.PC.OV ---
Intake Visit Reasons: Discuss referral/concerns Allergies miconazole [From Remedy Antifungal] Allergy (Severe, Verified 04/12/24 09:09) skin in mouth peels clarithromycin [From Biaxin] Allergy (Unknown, Verified 04/12/24 09:09) Unknown codeine Allergy (Unknown, Verified 04/12/24 09:09) Unknown terbinafine [From Lamisil] Allergy (Unknown, Verified 04/12/24 09:09) Unknown trazodone Allergy (Unknown, Verified 04/12/24 09:09) unknown pregabalin [From Lyrica] Adverse Reaction (Intermediate, Verified 04/12/24 09:09) Depression - crying lotrimin spray Allergy (Mild, Uncoded 04/12/24 09:09) skin inflammation Medication List - Last Reconciled 04/12/24 by João Reyes MD albuterol sulfate 90 mcg/actuation (Ventolin HFA) 2 puffs inhalation Q6H PRN 30 days clonidine HCl 0.1 mg PO BID PRN 30 days dicyclomine 20 mg PO TID PRN divalproex (Depakote) 500 mg PO BEDTIME 90 days divalproex (Depakote) 125 mg PO QAM 90 days duloxetine 60 mg PO BID 30 days gabapentin 600 mg PO QID 90 days lorazepam 1 mg PO BID PRN 30 days mupirocin 2% 1 appl topical TID pantoprazole 40 mg PO DAILY 90 days quetiapine Take 1 tablet in AM and 2 tablets at bedtime orally; 90 days [[facility] BED with Side Rails As directed] tramadol 50 mg PO BID-TID PRN Tobacco use date assessed: 03/15/24 Fall risk assessment: No Falls in past year Last assessed Fall Risk: 04/11/24 Dental Screening Dental Screen Date: 06/05/23 HPI Discuss referral/concerns HPI Details Patient's follow up visit / consultation today is done over video conference (iPhone/iPad/Google Meets/Kirk) - this is a TELEHEALTH visit Patient's current medications have been reviewed and verified with patient and/or caregiver/proxy and have been updated accordingly in the medication list Today's appointment was scheduled as patient would like to know what she should do know with regards to coming off marijuana States that she is smoking constantly now and does not wish to continue like this for the rest of her life We have discussed previously about her question whether Naltrexone can be used to help wean off marijuana - as I have mentioned to her at her last appointment, Naltrexone can be used to help come off opioids or alcohol but not marijuana I have previously tried referring her to our addiction clinic here to see what they can do to help patient and was advised by them that there is really no Rx for marijuana withdrawal and it is mostly just treating the symptoms as they come, including increased pain, irritability and anxiety Patient is currently still seeing a therapist at [facility] regularly and would like to get started on coming off marijuana Have advised her that the current medications that she is on should help blunt some of the effects that she is going to experience and we will just try to prescribe her something on an as-needed basis depending on her symptoms [facility] Medical History Suicide attempt by drug overdose Obesity (BMI 30-39.9) Bipolar disorder Anxiety Insomnia Constipation Chronic kidney disease (CKD), stage II (mild) Vitamin D deficiency Goiter Lichen planus Elevated liver enzymes Impaired fasting glucose Pure hypercholesterolemia Lumbar degenerative disc disease Surgical History History of laminectomy (~01/2011) History of spinal fusion (~01/2011) History of hysterectomy (~1993) Family History Father Scoliosis Mother Hypertension Cardiovascular disease Asthma Sister Asthma Arthritis Other Substance abuse Social History Housing: House Alcohol intake: current Alcohol intake frequency: holidays/special occasions only Patient Tobacco Use Status: Former Tobacco user e-Cigarette/Vaping Use: Never Used Second Hand Smoke Exposure: Yes Substance Use Type: Marijuana service: No Current occupational status: disabled Cognitive needs: No Hearing needs: No Vision needs: Yes Questionnaire Thrive Questionnaire Date Thrive assessed: 06/05/23 AUDIT C Alcohol Use Questionnaire (AUDIT-C) 1. How often do you have a drink containing alcohol?: Never 3. How often do you have six or more drinks on one occasion?: Never Total Score: 0 Score Reviewed/Action Taken: Yes LIYA-7 AMB Questionnaire LIYA-7 Date LIYA - 7 assessed: 06/05/23 Source: Developed by Drs. Robert Nina, Airam Lovett, Tay Jha and colleagues, with an educational cielo from [employer]. Review of Systems Const Denies chills, Reports fatigue, Denies fever(s) and Reports headache(s) (occasional) ENT Denies dysphagia, Denies dizziness, Denies otalgia, Reports headache(s) (occasional), Reports neck pain (chronic), Denies odynophagia and Denies sore throat Card Denies chest pain, Denies palpitations and Reports dyspnea on exertion (mild) Resp Denies chest congestion, Denies cough and Reports dyspnea on exertion (mild) GI Reports abdominal pain (recurrent, frequent, including over the RUQ area), Denies dysphagia, Denies heartburn, Reports diarrhea (intermittent - has IBS), Reports nausea (recurrent), Denies odynophagia and Denies vomiting Reports urinary incontinence (see HPI) Musc Reports back pain (over the lower back - chronic), Reports neck pain (chronic) and Reports radiating pain into limb (into the left arm - see HPI) Skin/Breast Denies rash Neuro Denies dizziness and Reports headache(s) (occasional) Psych Reports anxiety, Reports depression and Denies suicidal ideation Endo Reports fatigue and Denies palpitations Rajinder/Lymph Denies easy bruising Physical exam (Primary Care) Vital Signs: Physical examination is not performed as visit / consultation today is done over videoconference - Telehealth visit All physical findings indicated here, if present, are as per patient's and / or caregivers / proxy's report and visual inspection over videoconference, if appropriate or applicable Tobacco/Smoking Status: Tobacco use Status Tobacco use date assessed 03/15/24 04/11/24 12:47 Patient Tobacco Use Status Former Tobacco user 04/11/24 12:47 e-Cigarette/Vaping Use Never Used 04/11/24 12:47 Thrive Assessment: Date of Thrive Assessment Date Thrive assessed 06/05/23 04/11/24 12:47 Telehealth Telehealth Telehealth Platform: Telephone Location of provider rendering services: practice address Location of patient: address on file Patient Identification confirmed using: Name, : Yes Telehealth method: video (facetime) Patient verbally consented to treatment: Yes Patient verbally consented to billing insurance company: Yes Patient informed of any privacy concerns related to visit: Yes Minutes spent on Phone/Video with Pt.: 17 Coding Level of Care Code Tele Est Pt Level 3 (41700) Diagnoses Cannabis use disorder F12.90 Degeneration of intervertebral disc of lumbar region with discogenic back pain M51.360 Disc-related pain type: discogenic back pain only Osteoarthritis of cervical spine, unspecified spinal osteoarthritis complication status M47.812 Spinal osteoarthritis complication: unspecified spinal osteoarthritis Thoracic spine pain M54.6 Anxiety F41.9 Bipolar affective disorder, current episode mixed, current episode severity unspecified F31.60 Active/Remission status: currently active Current bipolar episode type: mixed Current episode severity: unspecified Assessment & Plan Assessment & Plan (1) Cannabis use disorder: Code(s): F12.90 - Cannabis use, unspecified, uncomplicated Category: Medical Plan: Have advised patient again that her current marijuana use appears to be helping her not only with her chronic pain but also with her anxiety and mood disorder and that trying to get her OFF marijuana completely can likely aggravate or exacerbate these issues We have advised previously that with the severity of her anxiety and bipolar disorder, she should undergo detox under professional guidance instead of just having us prescribe her some medications to help with her withdrawal symptoms and have her come off marijuana on her own, as we would expect her anxiety and mood disorder, not to mention her chronic pain, to get a lot worse while she is coming off marijuana We tried referring her to addiction medicine here at [facility] to see what they would recommend with regards to helping her come off cannabis but was advised by them recently that there is really no Rx or protocol for coming off marijuana and it is mostly just treating the symptoms as they come Patient is willing to start now and will start her off by prescribing her some Clonidine 0.1 mg BID PRN She is advised to continue on all of her current meds and to check back with us regularly on her progress or if her current meds are not helping her enough (2) Lumbar degenerative disc disease: Code(s): M51.36 - Other intervertebral disc degeneration, lumbar region Category: Medical Qualifiers: Disc-related pain type: discogenic back pain only Qualified Code(s): M51.360 - Other intervertebral disc degeneration, lumbar region with discogenic back pain only Plan: Reinforced activity and weight-lifting restrictions Patient states that her low back pain has been somewhat manageable through smoking marijuana and with Gabapentin 600 mg TID and Duloxetine 60 mg BID for a while but she is still in pain all over all day long Lumbar spine x-rays done back in March 2021 revealed (+) old postsurgical changes and lumbar disc disease She has been sent for repeat x-rays sometime last year but she did not get them done and has continually declined offer to send her for lumbar spine MRI or CT for further evaluation - states that she will NOT go to [facility] or any [facility] hospital here in [facility] to get any more tests done She has also declined offer to refer her to the Spine Center here at [facility] or to pain management as she remains adamant that she will not have any surgery or any type of invasive procedures or interventional treatments done to her spine here and asked to be referred to specialists in [place] instead at the [facility] - referral was done for her at her last visit in August 2023 but states that she has not heard back from anyone with regards to her referral since (3) Degenerative joint disease of cervical spine: Code(s): M47.812 - Spondylosis without myelopathy or radiculopathy, cervical region Category: Medical Qualifiers: Spinal osteoarthritis complication: unspecified spinal osteoarthritis Qualified Code(s): M47.812 - Spondylosis without myelopathy or radiculopathy, cervical region Plan: Cervical spine x-rays done at [facility] in 2023 revealed (+) mild to moderate degenerative changes of the cervical spine She was referred to [place] previously for this issue as well (4) Thoracic spine pain: Code(s): M54.6 - Pain in thoracic spine Category: Medical Plan: She was previously sent for thoracic spine x-rays as well but this was not done and no results are available regarding this Per request, she was referred to [place] as well to see specialists there regarding her chronic pain (5) Anxiety: Code(s): F41.9 - Anxiety disorder, unspecified Category: Medical Plan: Continue Lorazepam 1 mg Q HS PRN; is also on Depakote ER 125 mg Q AM to help with her straightener and aligner anxiety and Depakote ER 500 mg Q HS Continue Seroquel 50 mg in AM and 100 mg Q HS Her marijuana use also appears to be helping with her anxiety and there are concerns that her anxiety will get a lot worse while she is coming off her marijuana use We have started her on Clonidine 0.1 mg BID PRN for this reason (6) Bipolar disorder: Code(s): F31.9 - Bipolar disorder, unspecified Category: Medical Qualifiers: Active/Remission status: currently active Current bipolar episode type: mixed Current episode severity: unspecified Qualified Code(s): F31.60 - Bipolar disorder, current episode mixed, unspecified Plan: Continue Duloxetine 60 mg BID, Depakote ER 125 mg Q AM to help with her straightener and aligner anxiety and Depakote ER 500 mg Q HS (mood stabilizer) Continue Seroquel 50 mg in AM and 100 mg Q HS Continue Gabapentin 600 mg QID Follow up with psychiatry as scheduled She is currently receiving counseling from [facility] regularly and is advised to continue as scheduled Plan Follow up as scheduled in July 2024 Medications: New clonidine HCl 0.1 mg PO BID PRN 60 tabs 0RF anxiety symptoms 30 days
== END 2024-04-11 13:52 | disposition home or self-care (01) ==
LOC: HO.HMCH 12:45
PROVIDERS: PCP Internal Medicine; Visit Provider Internal Medicine
DX: M51.360 Other intervertebral disc degeneration, lumbar region with discogenic back pain only (principal); F12.90 Cannabis use, unspecified, uncomplicated; F31.60 Bipolar disorder, current episode mixed, unspecified; M47.812 Spondylosis without myelopathy or radiculopathy, cervical region; F41.9 Anxiety disorder, unspecified

== ENCOUNTER 2024-08-06 13:42 | Outpatient (REF) | payer MEDICARE, SELFPAY ==
--- NOTE | ~2024-08-06 | US_ITS ---
EXAMINATION: US ABDOMEN HISTORY: R10.9 - Unspecified abdominal pain TECHNIQUE: Real-time grayscale ultrasound imaging of the abdomen was performed and images were reviewed. COMPARISON: There are no prior studies for comparison. FINDINGS: Liver: The right lobe of the liver measures 12.2 cm in size. The left lobe of the liver measures 8.7 cm in size. The liver demonstrates increased echotexture, consistent with steatosis. No focal mass or intrahepatic biliary ductal dilatation is identified. There is normal hepatopedal flow in the portal vein. Gallbladder and biliary tree: There are multiple shadowing calculi in the gallbladder. The gallbladder wall is thickened measuring up to 8 mm in thickness and demonstrates wall edema. There is a positive sonographic Pool sign. The common bile duct measures 7 mm in diameter. Kidneys: The right kidney measures 10.2 cm in length. The left kidney measures 10.4 cm in length. The kidneys are unremarkable, without evidence of masses, hydronephrosis, or calculi. Pancreas: The pancreas is obscured by bowel gas. Spleen: The spleen is normal in size and contour, measuring 9.4 cm in length. Abdominal aorta and inferior vena cava: The visualized portions of the abdominal aorta and inferior vena cava are normal in caliber. There is no free fluid in the abdomen. US/US abdomen complete IMPRESSION: 1. Findings consistent with acute cholecystitis as described. A report was sent to [facility] by secure text message on 08/06/2014 at 2:26 PM and was acknowledged at 2:29 PM. 2. Hepatic steatosis. Electronically signed by: Robert Ruffin MD 08/06/2024 02:30 PM EDT
[2024-08-06 13:42] LABS: MANUAL DIFF FLAG NO
[2024-08-06 14:03] LABS: Basophils Percent Auto 0.3 % (0-2); Eosinophils Absolute Auto 0.3 X10*3/uL (0.0-0.4); Eosinophils Percent Auto 3.5 % (0-4); Hematocrit 38.2 % (37.0-47.0); Imm Gran Abs Auto 0.05 X10*3/uL (0.00-0.03); Imm Gran Pct Auto 0.6 % (0.0-0.4); Lymphocytes Percent Auto 26.2 % (20-40); Mean Corpuscular Volume 94.1 fL (80.0-98.0); Mean Platelet Volume 9.3 fL (9.4-12.3); Monocytes Absolute Auto 0.8 X10*3/uL (0.1-1.2); Monocytes Percent Auto 10.4 % (2-11); Neutrophils Absolute Auto 4.6 x10*3/uL (2.0-8.3); Platelet Count 401 X10*3/uL (160-400); Red Blood Count 4.06 X10*6/uL (4.20-5.50); Red Cell Distribution Width 12.7 % (11.0-16.0); White Blood Count 7.7 X10*3/uL (4.8-10.8)
[2024-08-06 14:43] LABS: B Type Natriuretic Peptide 12 pg/mL (<100); Erythrocyte Sedimentation Rate 66 MM/HR (0-20)
[2024-08-06 14:57] LABS: Alanine Aminotransferase 177 U/L (0-31); Albumin Level 3.8 g/dL (3.5-5.0); Alkaline Phosphatase 260 U/L (39-117); Anion Gap 15 (12-20); Aspartate Amino Transferase 57 U/L (5-31); Bilirubin Direct 0.1 mg/dL (0.0-0.5); Bilirubin Total 0.3 mg/dL (0.0-1.0); Blood Urea Nitrogen 5 mg/dL (9-16); C Reactive Protein 5.94 mg/dL (< or = 0.50); Calcium 9.5 mg/dL (8.4-10.2); Carbon Dioxide 28 mmol/L (22-29); Chloride 105 mmol/L (96-108); Estimated Glomerular Filt Rate > 60; Glucose Fasting 84 mg/dL (60-99); Glucose Random 83 mg/dL (60-115); Lipase 53 U/L (8-78); Magnesium 2.2 mg/dL (1.6-2.6); Potassium 4.6 mmol/L (3.3-5.1); Sodium 143 mmol/L (135-145); TSH reflex Free T4 3.71 uIU/mL (0.32-4.0); Total Protein 7.6 g/dL (6.5-8.0)
--- OUTSIDE RECORDS SUMMARY | 2024-08-06 16:09 | XMS_ITS | Clinical Summary ---
Author Organization [facility] Address [address] [place] [address] Care Team Providers Care Director Of Retail Analytics Name Role Phone João Reyes MD Primary Care Provider [phone] Allergies Active Allergy Reactions Criticality Noted Date Comments Clarithromycin 04/18/2023 Other reaction(s): vomiting Biaxin Other 04/18/2023 One of the eye drops used during exam: Increased heart rate Terbinafine Rash Low 04/18/2023 Lamisil Trazodone 04/18/2023 Medications diphenhydrAMINE HCl (BENADRYL ALLERGY PO) Benadryl Allergy Active Cyclobenzaprine HCl (FLEXERIL PO) Flexeril Active DULoxetine HCl (CYMBALTA PO) prn Active LORAZEPAM PO prn Active Cannabinoids (medical cannabis) prn Active Active Problems Problem Noted Date Diagnosed Date Glaucoma suspect of both eyes 04/18/2023 Vitreous floaters of right eye 04/18/2023 1 06/18/2022 Posterior vitreous detachment of right eye 04/1804/18/2023 Presbyopia of both eyes 04/18/2023 04/18/20 23 Family History Medical History Relation Name Comments Glaucoma Mother Glaucoma Sister Relation Name Status Comments Mother Sister Social History Tobacco Use Types Packs/Day Years Used Date Smoking Tobacco: Former Cigarettes Q uit: 01/07/2017 Tobacco Cessation:Counseling Given: Not Answered Comments Unknown Sex and Gender Information Value Date Recorded Sex Assigned at Female 04/18/2023 10:39 AM EST Legal Sex Female 8:39 PM EDT Gender Identity Female 04/18/2023 10:39 AM EST Sexual Orientation Choose not to disclose 2022 10:39 AM EST Last Filed Vital Signs Vital Sign Reading Time Taken Comments Blood Pressure 118/88 07/19/2021 12:30 PM EST Pulse - - Temperature - - Respiratory Rate - - Oxygen Saturation - - Inhaled Oxygen Concentration - - Weight - - Height - - Body Mass Index - - Plan of Treatment Health Maintenance Due Date Last Done Comments CT Colonography 1960 Colonoscopy 1960 Colorectal Cancer Screening 1960 Depression Screening 1960 FIT DNA/Cologuard 1960 FIT 1960 FOBT 1960 HIV Screening 1960 SDOH Screening 1960 Sigmoidoscopy 1960 Alcohol/Substance Use Screening 1972 Tobacco Screening 1972 Hepatitis C Screening 01/08/1978 DTaP/Tdap/Td Vaccines (1 - Tdap) 01/08/1979 Pap Smear 01/08/1981 Cervical Cancer Screening 01/08/1990 HPV/Cotest 01/08/1990 Mammogram 2000 Pneumococcal Vaccine: 50+ Ye ars (1 of 1 - PCV) 01/08/2010 Zoster Vaccines (1 of 2) 01/08/2010 COVID-19 Vaccine ( - 2023-2 5 season) 2024 Influenza Vaccine (#1) 2024 RSV Patients and Pa tients Aged 60 years or older (1 - 1-dose 75+ series) 01/08/2035 HIB Vaccines Aged Out No longer eligi ble based on patient's age to complete this topic HPV Vaccines Aged Out No longer eligi ble based on patient's age to complete this topic Hepatitis A Vaccines Aged Out No long er eligible based on patient's age to complete this topic Hepatitis B Vaccines Aged Out No long er eligible based on patient's age to complete this topic IPV Vaccines Aged Out No longer eligi ble based on patient's age to complete this topic Meningococcal Vaccine Aged Out No miguel andreina eligible based on patient's age to complete this topic RSV under 20 months Aged Out No longe r eligible based on patient's age to complete this topic Rotavirus Vaccines Aged Out No longer eligible based on patient's age to complete this topic Insurance [facility] MEDICARE ADVANTAGE HMO Care Teams Director Of Retail Analytics Relationship Specialty Start Date End Date João Reyes MD [address] [place] [id number] PCP - General Internal Medicine 04/18/23
== END 2024-08-06 13:43 | disposition home or self-care (01) ==
LOC: HO.US 13:42
PROVIDERS: PCP Internal Medicine; Visit Provider Physician Assistant Medical
DX: R10.0 Acute abdomen (principal); K80.20 Calculus of gallbladder without cholecystitis without obstruction; R60.9 Edema, unspecified; R50.9 Fever, unspecified; D64.9 Anemia, unspecified; Z00.00 Encounter for general adult medical examination without abnormal findings
CPT/HCPCS: 36415; 76700; 80053; 82248; 83690; 83735; 83880; 84443; 85025; 85652; 86140

== ENCOUNTER → 2024-08-06 13:47 | Outpatient (BNV) | payer MEDICARE, SELFPAY | PROVIDERS: PCP Internal Medicine; Visit Provider Radiology Diagnostic Radiology | DX: K80.20 Calculus of gallbladder without cholecystitis without obstruction (principal); K76.0 Fatty (change of) liver, not elsewhere classified | CPT/HCPCS: 74181 ==

== ENCOUNTER 2024-08-06 14:20 | Inpatient (IN) | payer MEDICARE, SELFPAY ==
--- NOTE | ~2024-08-06 | FL_ITS ---
EXAMINATION: FL GUIDANCE ONLY HISTORY: ERCP COMPARISON: Correlation is made with MRCP dated 08/06/2024. TECHNIQUE: Fluoroscopy time: 129.1 seconds. Cumulative Dose: 52.72 mGy. Images: 2. FINDINGS: Images demonstrate opacification of the common bile duct which is mildly dilated. No definite filling defects are identified. FL/FL guidance in OR IMPRESSION: Fluoroscopy during procedure. Please see procedure report for additional information. Electronically signed by: Robert Ruffin MD 08/08/2024 07:12 AM EDT
--- NOTE | ~2024-08-06 | MR_ITS ---
CLINICAL HISTORY: RUQ pain, elevated LFTs, dilated CBD MRCP without gadolinium Comparison: None Findings: No biliary stones or dilatation. Common bile duct 10 mm diameter. Multiple gallstones are noted. Possible small filling defect within the distal CBD concerning for choledocholithiasis. Marked gallbladder wall thickening measuring up to 1.0 cm. Findings are consistent with acute cholecystitis. Unremarkable solid organs. IMPRESSION: Multiple gallstones are noted. Possible small filling defect within the distal CBD with mild dilation concerning for choledocholithiasis. Marked gallbladder wall thickening measuring up to 1.0 cm. Findings are consistent with acute cholecystitis. This document has been electronically signed by: Roger Valdez MD on 08/06/2024 20:58:40
[2024-08-06 14:35] VITALS: BP 121/74; PULSE 73; RESP 16; TEMP 36.1; O2SAT 94; BMI 32.2
--- NOTE | 2024-08-06 15:03 | ED_ITS ---
HPI - Abdominal Pain General Chief Complaint: Abdominal Pain Stated Complaint: Abnormal ultrasound Time Seen by Provider: 08/06/24 15:18 Source: patient and RN notes reviewed Mode of arrival: ambulatory Limitations: no limitations History of Present Illness ED Provider: Marilyn Palacios PA-C HPI narrative: This is a 64-year-old female, with a past medical history of bipolar disorder, anxiety, lumbar degenerative disc disease with spinal fusion several years ago, who presents emergency department for evaluation of epigastric discomfort for the last 6 weeks. Patient states that she chronically has epigastric and right upper quadrant pain all of her life however states that over the last 6 weeks the pain has been constant. She does endorse subjective fevers and chills. She also endorses nausea and vomiting. She denies any chest pain or shortness for breath. Denies any diarrhea constipation. No urinary symptoms. Last had coffee at 5:00 a.m. this morning, no other food. No other complaints or concerns at this time. MD elicited complaint: abdominal pain Pertinent past history: none Onset (ago): day(s) Pain Consistency: constant Location: epigastric and RUQ Quality: aching Radiation: back Exacerbating factors: eating Relieving factors: nothing Associated symptoms: nausea, vomiting, fever (Subjective) and chills Related Data Previous Rx's ?Medication ?Instructions ?Recorded pantoprazole 40 mg tablet,delayed 40 mg PO DAILY 90 days #90 tabs 08/10/22 release [facility]LECT[facility]IC [facility] BED with #1 ea 04/18/23 Side Rails mupirocin 2 % topical ointment 1 appl topical TID #80 grams 06/01/23 quetiapine 50 mg tablet See Rx Instructions PO .COMPLEX 90 03/14/24 days #180 tabs albuterol sulfate 90 mcg/actuation 2 puff inhalation Q6H PRN 03/15/24 aerosol inhaler (Ventolin HFA) shortness of breath or wheezing 30 days #8.5 grams clonidine HCl 0.1 mg tablet 0.1 mg PO BID PRN anxiety symptoms 04/11/24 30 days #60 tabs divalproex 500 mg tablet,delayed 500 mg PO BEDTIME 90 days #90 tabs 07/24/24 release (Depakote) lorazepam 1 mg tablet 1 mg PO BID PRN anxiety 30 days 07/24/24 #60 tabs dicyclomine 20 mg tablet 20 mg PO TID PRN abdominal 07/27/24 cramping #30 tabs gabapentin 600 mg tablet 600 mg PO QID 90 days #360 tabs 07/28/24 divalproex 125 mg tablet,delayed 125 mg PO QAM 90 days #90 tabs 07/30/24 release (Depakote) duloxetine 60 mg capsule,delayed 60 mg PO BID 30 days #60 caps 08/05/24 release tramadol 50 mg tablet 50 mg PO BID-TID PRN pain #60 tabs 08/05/24 Allergies Allergy/AdvReac Type Severity Reaction Status Date / Time miconazole Allergy Severe skin in Verified 08/06/24 14:37 [From Remedy Antifungal] mouth peels clarithromycin [From Biaxin] Allergy Unknown Unknown Verified 08/06/24 14:37 codeine Allergy Unknown Unknown Verified 08/06/24 14:37 terbinafine [From Lamisil] Allergy Unknown Unknown Verified 08/06/24 14:37 trazodone Allergy Unknown unknown Verified 08/06/24 14:37 pregabalin [From Lyrica] AdvReac Intermediate Depression Verified 08/06/24 14:37 - crying lotrimin spray Allergy Mild skin Uncoded 04/12/24 09:09 inflammation Review of Systems Review of Systems Yes all other systems are reviewed and are negative Constitutional: Reports as per [facility] Past Medical History Medical History (Updated 08/06/24 @ 15:29 by ANGEL LUIS Vazquez) Fever Cholelithiasis Suicide attempt by drug overdose Obesity (BMI 30-39.9) Bipolar disorder Anxiety Insomnia Constipation Chronic kidney disease (CKD), stage II (mild) Vitamin D deficiency Goiter Lichen planus Elevated liver enzymes Impaired fasting glucose Pure hypercholesterolemia Lumbar degenerative disc disease Surgical History History of laminectomy (~01/2011) History of spinal fusion (~01/2011) History of hysterectomy (~1993) Family History Family History Father Scoliosis Mother Hypertension Cardiovascular disease Asthma Sister Asthma Arthritis Other Substance abuse Social History Social History Housing: House Alcohol intake: current Alcohol intake frequency: holidays/special occasions only Patient Tobacco Use Status: Former Tobacco user Smoked in Last 30 Days: No e-Cigarette/Vaping Use: Never Used Second Hand Smoke Exposure: Yes Use of substances other than those prescribed or required for medical reasons: No Substance Use Type: Marijuana Advance Directives: No Advance Directives Information Provided: No Do you have a plan to hurt others: No Plan Patient : No service: No Current occupational status: disabled Cognitive needs: No Hearing needs: No Vision needs: Yes Physical Exam ED Vital Signs: Vital Signs - 24 hr 08/06/24 14:35 Temperature 96.9 F Pulse Rate 73 Respiratory Rate 16 Blood Pressure 121/74 Pulse Oximetry 94 Oxygen Delivery Method Room Air BMI result Body Mass Index 32.2 Const General: cooperative, comfortable and no acute distress Orientation/consciousness: patient oriented x3 Limitations: no limitations HENMT Head: Yes normal to inspection, Yes normocephalic and Yes atraumatic Ears: hearing grossly normal bilaterally General nose exam: Normal external nose present Face and sinus: Yes normal facial exam Mouth: Normal oral and palatal mucosa present, oropharynx normal and moist mucous membranes Throat: Yes posterior oropharynx normal Eyes General: appearance normal, both eyes and all related structures Eyelids: Yes eyelids normal Conjunctivae: conjunctivae normal Sclerae: sclerae normal Pupils: Equal, round and reactive pupils present EOM: EOMs intact bilaterally Neck Neck: Yes normal visual inspection, Yes full ROM and Yes no lymphadenopathy Lymphatic: no lymphadenopathy noted Chest Chest palpation & inspection: normal inspection of the chest Resp Effort & Inspection: normal respiratory effort and able to speak in complete sentences Auscultation: clear to auscultation bilaterally, no crackles, no rales, no rhonchi and no wheezes Cardio Rate: regular rate Rhythm: regular rhythm Heart sounds: S1 normal heart sound present and S2 normal heart sound present GI Other: Abdomen is soft with tenderness palpation in the epigastrium and right upper quadrant, positive Pool's sign. Skin General skin exam: no rashes or lesions noted Trauma: no lacerations or abrasions Wounds: no wounds Neuro General: patient oriented x3 and moves all extremities Cranial nerves: Yes Equal, round and reactive pupils present Extrem General: Yes normal to inspection Right upper extremity: normal to inspection Left upper extremity: normal to inspection Right lower extremity: normal to inspection Left lower extremity: normal to inspection Medical Decision Making Medical Decision Making [facility] Narrative: This is a 64-year-old female who presents emergency department for evaluation of epigastric and right upper quadrant pain which she has had chronically however states that over the last 6 weeks this has worsened. On arrival, vital signs within normal limits. She is speaking full sentences under no acute distress. Abdomen is soft with tenderness palpation in the right upper quadrant and epigastrium. Patient arrives with ultrasound positive for acute cholecystitis. Labs were already obtain outpatient. Patient has no leukocytosis, stable H&H, ESR and CRP are elevated, ESR is 66 CRP is 5.94. AST and ALT are elevated at 57 and 177. Alk phos 260. Will add on blood cultures, lactic, type and screen. Discussed case with Dr. Anderson, who recommends keeping patient NPO and will be admitted to the surgical service. Given patient has allergy to basals, will treat with broad coverage antibiotics. IV fluids and pain medication also ordered. Transfer of care initiated. Differential Diagnosis Differential Diagnoses: The differential diagnosis associated with the presentation includes Cholecystitis, cholangitis, gastritis, gastroenteritis Admission/Observation Consideration of admission/observation: Escalation of care including admission/observation considered Consult Healthcare Provider Management of the patient was discussed with: Tile Layer Drainage Dr. Anderson Lab Data [facility] Lab Attestation statement: I reviewed the patient's lab results. See outpatient labs that were performed at 1:00 p.m. Labs: Lab Results 08/06/24 08/06/24 Range/Units 15:34 15:36 Lactic Acid 1.0 (0.5-2.0) mmol/L Blood Type O Positive Antibody Screen NEGATIVE Independent Interpretation I performed an independent interpretation of an: EKG Interpretation: Normal sinus rhythm at a ventricular rate of 79 beats per minute, no ST elevation or depression. Radiology Impression Discussion of test interpretation with radiology: I have reviewed the radiologist's reading. Radiologist Impression: EXAMINATION: US ABDOMEN HISTORY: R10.9 - Unspecified abdominal pain TECHNIQUE: Real-time grayscale ultrasound imaging of the abdomen was performed and images were reviewed. COMPARISON: There are no prior studies for comparison. FINDINGS: Liver: The right lobe of the liver measures 12.2 cm in size. The left lobe of the liver measures 8.7 cm in size. The liver demonstrates increased echotexture, consistent with steatosis. No focal mass or intrahepatic biliary ductal dilatation is identified. There is normal hepatopedal flow in the portal vein. Gallbladder and biliary tree: There are multiple shadowing calculi in the gallbladder. The gallbladder wall is thickened measuring up to 8 mm in thickness and demonstrates wall edema. There is a positive sonographic Pool sign. The common bile duct measures 7 mm in diameter. Kidneys: The right kidney measures 10.2 cm in length. The left kidney measures 10.4 cm in length. The kidneys are unremarkable, without evidence of masses, hydronephrosis, or calculi. Pancreas: The pancreas is obscured by bowel gas. Spleen: The spleen is normal in size and contour, measuring 9.4 cm in length. Abdominal aorta and inferior vena cava: The visualized portions of the abdominal aorta and inferior vena cava are normal in caliber. There is no free fluid in the abdomen. US/US abdomen complete IMPRESSION: 1. Findings consistent with acute cholecystitis as described. A report was sent to [facility] by secure text message on 08/06/2014 at 2:26 PM and was acknowledged at 2:29 PM. 2. Hepatic steatosis. Electronically signed by: Robert Ruffin MD 08/06/2024 02:30 PM EDT Medications Administered Discontinued Medications Generic Name Dose Route Start Last Admin Trade Name Freq PRN Reason Stop Dose Admin Sodium Chloride 1,000 mls @ 999 mls/hr 08/06/24 15:21 08/06/24 15:51 Ns IV 08/06/24 16:21 999 mls/hr .Q1H1M ONE Administration Piperacillin Sod/Tazobactam 100 mls @ 200 mls/hr 08/06/24 15:55 08/06/24 16:33 Sod 4.5 gm/ Sodium Chloride IV 08/06/24 16:24 Infused ONCE ONE Infusion Morphine Sulfate 4 mg 08/06/24 15:49 08/06/24 16:03 Morphine Sulfate 4 Mg/Ml Cartridge IVPUSH 08/06/24 15:50 4 mg ONCE ONE Administration Protocol Morphine Sulfate 4 mg 08/06/24 17:47 08/06/24 18:00 Morphine Sulfate 4 Mg/Ml Cartridge IVPUSH 08/06/24 17:48 4 mg ONCE ONE Administration Protocol Discharge Plan Discharge Clinical Impression: Acute cholecystitis
--- NOTE | 2024-08-06 15:27 | ECG_ITS ---
Test Reason : PRE-OP Blood Pressure : */* mmHG Vent. Rate : 79 BPM Atrial Rate : 79 BPM P-R Int : 146 ms QRS Dur : 82 ms QT Int : 382 ms P-R-T Axes : 69 5 24 degrees QTcB Int : 438 ms Normal sinus rhythm Cannot rule out Anterior infarct , age undetermined Abnormal ECG No previous ECGs available Referred By: Marilyn Palacios Electronically Signed By: Yovani Ricci
[2024-08-06] MEDS: 0.9 % Sodium Chloride 1,000 ML 999 ML IV (15:51)
[2024-08-06] MEDS: Morphine Sulfate 4 MG/ML CARTRIDGE IVPUSH ×2 (16:03→18:00)
[2024-08-06] MEDS: Piperacillin Sodium/Tazobactam 4.5 GM in 0.9 % Sodium Chloride 100 ML IV (16:03)
--- NOTE | 2024-08-06 17:20 | PC.NURSE ---
patient to remain NPO, surgeon states can have ice chips
--- NOTE | 2024-08-06 17:55 | PC.NURSE ---
MRI Screening form faxed to MRI
[2024-08-06 18:01] VITALS: BP 110/64; PULSE 74; RESP 16; TEMP 36.1; O2SAT 95
--- NOTE | 2024-08-06 20:49 | PHA.MEDREC ---
Addendum entered by Jeni Kerns RPh 08/06/24 21:06: [facility] reviewed Original Note: Pharmacy Consult ? Medication Reconciliation Pharmacy has completed the medication reconciliation. Spoke to patient and at bedside. has a list of patient medications. Patient states she is no longer taking Clonidine 0.1 mg and Mupirocin ointment. Patient confirmed Quetiapine 50 mg in the morning and Quetiapine 100 mg in the evening. patient s list has Gabapentin 600 mg 5 times a day , however claims has Gabapentin 600 mg QID. left what claims says on med list.
[2024-08-06 20:55] VITALS: BP 136/85; PULSE 83; RESP 16; TEMP 36.8; O2SAT 97
[2024-08-06] MEDS: 0.9 % Sodium Chloride 1,000 ML 100 ML IVCONT (21:45)
[2024-08-06] MEDS: Morphine Sulfate 4 MG/ML CARTRIDGE 3 MG IVPUSH (22:32)
--- NOTE | 2024-08-06 22:49 | P.HPGS_ITS ---
History of Present Illness History of Present Illness Date of Service: 08/06/24 Chief complaint: abdominal pain Narrative: Gabby Helms is a 64 year old female who has not been feeling well for the last 6 weeks and has been calling her PCP and discussing things with him. She has been complaining of abdominal discomfort and nausea. Today she vomited several times. Her PCP told her to come to the hospital and put in orders for blood work as well as right upper quadrant ultrasound. She says that she has had a history of gallstones in the past but did not really have symptoms from this. Doing the ultrasound it was noted that her gallbladder wall was thickened that she had multiple gallstones that the area was tender with the procedure consistent with a Pool sign and that her common bile duct was 7 mm. Blood work revealed elevated AST ALT and alk-phos but normal bilirubin. She had normal white count with a normal differential. ESR and CRP were elevated. Patient had MR CP to rule out common bile duct stone and this study revealed thickened gallbladder wall up to 1 cm common bile duct 1 cm distal common bile duct with findings maybe consistent with stone debris distally. Review of Systems Review of Systems: Yes all other systems are reviewed and are negative [facility] Past Medical History Medical History (Updated 08/06/24 @ 22:54 by Nancy Anderson MD) Fever Cholelithiasis Suicide attempt by drug overdose Obesity (BMI 30-39.9) Bipolar disorder Anxiety Insomnia Constipation Chronic kidney disease (CKD), stage II (mild) Vitamin D deficiency Goiter Lichen planus Elevated liver enzymes Impaired fasting glucose Pure hypercholesterolemia Lumbar degenerative disc disease Family History Family History Father Scoliosis Mother Hypertension Cardiovascular disease Asthma Sister Asthma Arthritis Other Substance abuse Surgical History Surgical History History of laminectomy (~01/2011) History of spinal fusion (~01/2011) History of hysterectomy (~1993) Social History Social History Housing: House Alcohol intake: current Alcohol intake frequency: holidays/special occasions only Patient Tobacco Use Status: Former Tobacco user Smoked in Last 30 Days: No e-Cigarette/Vaping Use: Never Used Second Hand Smoke Exposure: Yes Use of substances other than those prescribed or required for medical reasons: No Substance Use Type: Marijuana Advance Directives: No Advance Directives Information Provided: No Do you have a plan to hurt others: No Plan Patient : No service: No Current occupational status: disabled Cognitive needs: No Hearing needs: No Vision needs: Yes Meds Allergies Allergy/AdvReac Type Severity Reaction Status Date / Time miconazole Allergy Severe skin in Verified 08/06/24 14:37 [From Remedy Antifungal] mouth peels clarithromycin [From Biaxin] Allergy Unknown Unknown Verified 08/06/24 14:37 codeine Allergy Unknown Unknown Verified 08/06/24 14:37 terbinafine [From Lamisil] Allergy Unknown Unknown Verified 08/06/24 14:37 trazodone Allergy Unknown unknown Verified 08/06/24 14:37 pregabalin [From Lyrica] AdvReac Intermediate Depression Verified 08/06/24 14:37 - crying lotrimin spray Allergy Mild skin Uncoded 04/12/24 09:09 inflammation Active Medications: Current Medications Acetaminophen (Acetaminophen 325 Mg Tablet) 650 mg PO Q6H PRN PRN Reason: Pain, Mild 1-3,fever,headache Sodium Chloride (Ns) 1,000 mls @ 100 mls/hr IVCONT .Q10H [facility] Last Admin: 08/06/24 21:45 Dose: 100 mls/hr Piperacillin Sod/Tazobactam (Sod 3.375 gm/ Sodium Chloride) 50 mls @ 100 mls/hr IV Q6H [facility] Melatonin (Melatonin 3 Mg Tablet) 6 mg PO BEDTIME PRN PRN Reason: Insomnia Morphine Sulfate (Morphine Sulfate 4 Mg/Ml Cartridge) 3 mg IVPUSH Q4H PRN; Protocol PRN Reason: Pain, Severe (Pain Scale 7-10) Last Admin: 08/06/24 22:32 Dose: 3 mg Morphine Sulfate (Morphine Sulfate 4 Mg/Ml Cartridge) 3 mg IVPUSH Q6H PRN; Protocol PRN Reason: Pain, Moderate(Pain Scale 4-6) Ondansetron HCl (Ondansetron Hcl 4 Mg/2 Ml Vial) 4 mg IVPUSH Q8H PRN PRN Reason: Nausea and Vomiting Sodium Chloride (0.9 % Sodium Chloride Flush 3 Ml Syringe) [facility] Medications ?Medication ?Instructions ?Recorded ?Confirmed ?Last Taken ?Type divalproex 125 mg tablet,delayed 125 mg PO DAILY 08/06/24 08/06/24 08/06/24 History release (Depakote) pantoprazole 40 mg tablet,delayed 40 mg PO DAILY@0630 08/06/24 08/06/24 08/06/24 History release quetiapine 50 mg tablet 50 mg PO DAILY 08/06/24 08/06/24 08/06/24 History quetiapine 50 mg tablet 100 mg PO BEDTIME 08/06/24 08/06/24 08/05/24 History Physical Exam Vital Signs: Vital Signs: Last Vital Signs Temp 98.2 F 08/06/24 20:55 Pulse 83 08/06/24 20:55 Resp 16 08/06/24 20:55 BP 136/85 08/06/24 20:55 Pulse Ox 97 08/06/24 20:55 O2 Del Method Room Air 08/06/24 20:55 BMI result Body Mass Index 32.2 Const: General: cooperative, healthy appearing, comfortable and in distress mild HEENT: Other: Nonicteric Resp: Effort & Inspection: normal respiratory effort Auscultation: clear to auscultation bilaterally Cardio: Rate: regular rate Rhythm: regular rhythm GI: Other: Abdomen is soft nondistended she is tender in the epigastric area and right upper quadrant to deep palpation some guarding no peritoneal signs no masses noted Skin: Other: Not icteric Results Results Abdomen CT scan report/results: report reviewed and image reviewed CT scan - pelvis: report reviewed and image reviewed Additional studies: Patient: Gabby Helms MR#: [id number] : 1960 Acct:[id number] Age/Sex: 64 / F ADM Date: 08/06/24 Loc: HO.US Attending Dr: Megan Huerta PA-C Ordering Physician: Megan Huerta PA-C Date of Service: 08/06/24 Procedure(s): US abdomen complete Accession Number(s): [id number] cc: João Reyes MD; Megan Huerta PA-C~ EXAMINATION: US ABDOMEN HISTORY: R10.9 - Unspecified abdominal pain TECHNIQUE: Real-time grayscale ultrasound imaging of the abdomen was performed and images were reviewed. COMPARISON: There are no prior studies for comparison. FINDINGS: Liver: The right lobe of the liver measures 12.2 cm in size. The left lobe of the liver measures 8.7 cm in size. The liver demonstrates increased echotexture, consistent with steatosis. No focal mass or intrahepatic biliary ductal dilatation is identified. There is normal hepatopedal flow in the portal vein. Gallbladder and biliary tree: There are multiple shadowing calculi in the gallbladder. The gallbladder wall is thickened measuring up to 8 mm in thickness and demonstrates wall edema. There is a positive sonographic Pool sign. The common bile duct measures 7 mm in diameter. Kidneys: The right kidney measures 10.2 cm in length. The left kidney measures 10.4 cm in length. The kidneys are unremarkable, without evidence of masses, hydronephrosis, or calculi. Pancreas: The pancreas is obscured by bowel gas. Spleen: The spleen is normal in size and contour, measuring 9.4 cm in length. Abdominal aorta and inferior vena cava: The visualized portions of the abdominal aorta and inferior vena cava are normal in caliber. There is no free fluid in the abdomen. US/US abdomen complete IMPRESSION: 1. Findings consistent with acute cholecystitis as described. A report was sent to [facility] by secure text message on 08/06/2014 at 2:26 PM and was acknowledged at 2:29 PM. 2. Hepatic steatosis. Electronically signed by: Robert Ruffin MD 08/06/2024 02:30 PM EDT Dictated By: Robert Ruffin MD Signed By: <Electronically signed by Robert Ruffin MD in [place]> 08/06/24 1430 DD/ 1347 TD/TT: 08/06/24 1400 Pasteurizing Supervisor: [place] [id number] Magnetic Resonance Report Signed Patient: Gabby Helms MR#: [id number] : 1960 Acct:[id number] Age/Sex: 64 / F ADM Date: 08/06/24 Loc: [place] [address]: Nancy Anderson MD Ordering Physician: Marilyn Palacios Date of Service: 08/06/24 Procedure(s): MR MRCP Accession Number(s): [id number] cc: João Reyes MD; Marilyn Palacios~ CLINICAL HISTORY: RUQ pain, elevated LFTs, dilated CBD MRCP without gadolinium Comparison: None Findings: No biliary stones or dilatation. Common bile duct 10 mm diameter. Multiple gallstones are noted. Possible small filling defect within the distal CBD concerning for choledocholithiasis. Marked gallbladder wall thickening measuring up to 1.0 cm. Findings are consistent with acute cholecystitis. Unremarkable solid organs. IMPRESSION: Multiple gallstones are noted. Possible small filling defect within the distal CBD with mild dilation concerning for choledocholithiasis. Marked gallbladder wall thickening measuring up to 1.0 cm. Findings are consistent with acute cholecystitis. This document has been electronically signed by: Roger Valdez MD on 08/06/2024 20:58:40 Dictated By: Roger Valdez MD Signed By: <Electronically signed by Roger Valdez MD in [place]> 08/06/242058 DD/ 57 TD/TT: 08/06/242057 Pasteurizing Supervisor: Assessment and Plan (1) Choledocholithiasis: Status: Acute Plan 64-year-old female with epigastric and right upper quadrant pain consistent ongoing for the last couple of weeks most likely secondary to cholecystitis cholelithiasis and choledocholithiasis. Patient with multiple small stones and probable passage of stone which maybe stuck at the distal common bile duct. LFTs elevated common bile duct elevated on MRCP. White count within normal limits. Findings on MRCP of the gallbladder consistent with acute on chronic changes of cholecystitis. Plan to admit NPO IV fluids IV antibiotics repeat blood work tomorrow in the morning consult gastroenterology for possible ERCP. At some point patient will also need laparoscopic cholecystectomy. Quality Stroke Does the patient have a stroke diagnosis?: No VTE Prior VTE?: No VTE Risk Level:: Surgical - low VTE Device Contraindication: N/A - Device Ordered VTE Drug Contraindication: N/A - Med Ordered Procedures Date of Service Date of Service: 08/06/24
[2024-08-07] VITALS (11 sets, daily range): BP systolic 97–135; BP diastolic 47–86; PULSE 66–97; RESP 12–20; TEMP 36.2–37.1; O2SAT 92–97; BMI 31.8
[2024-08-07] MEDS: Acetaminophen 325 MG TABLET 650 MG PO ×2 (03:33→12:32)
[2024-08-07 05:10] LABS: Basophils Percent Auto 0.2 % (0-2); Eosinophils Absolute Auto 0.2 X10*3/uL (0.0-0.4); Eosinophils Percent Auto 2.1 % (0-4); Hemoglobin 11.8 g/dl (12.0-16.0); Imm Gran Abs Auto 0.06 X10*3/uL (0.00-0.03); Imm Gran Pct Auto 0.5 % (0.0-0.4); Lymphocytes Absolute Auto 1.3 X10*3/uL (1.2-4.9); Lymphocytes Percent Auto 11.4 % (20-40); MANUAL DIFF FLAG SCAN; Mean Corpuscular HGB Conc 33.7 g/dl (31.0-35.0); Mean Corpuscular Hemoglobin 31.8 pg (27.0-33.0); Mean Corpuscular Volume 94.3 fL (80.0-98.0); Mean Platelet Volume 9.1 fL (9.4-12.3); Monocytes Absolute Auto 1.6 X10*3/uL (0.1-1.2); Monocytes Percent Auto 14.5 % (2-11); Neutrophils Percent Auto 71.3 % (45-73); Platelet Count 356 X10*3/uL (160-400); Red Blood Count 3.71 X10*6/uL (4.20-5.50); Red Cell Distribution Width 13.1 % (11.0-16.0); SCAN SMEAR FLAG 1; White Blood Count 11.2 X10*3/uL (4.8-10.8)
[2024-08-07] MEDS: Morphine Sulfate 4 MG/ML CARTRIDGE 3 MG IVPUSH ×3 (05:26→13:24)
[2024-08-07 05:32] LABS: SLIDE REVIEW VERIFIED
[2024-08-07 05:36] LABS: Alanine Aminotransferase 128 U/L (0-31); Albumin Level 3.3 g/dL (3.5-5.0); Alkaline Phosphatase 262 U/L (39-117); Anion Gap 11 (12-20); Aspartate Amino Transferase 51 U/L (5-31); Bilirubin Total 0.4 mg/dL (0.0-1.0); Blood Urea Nitrogen 7 mg/dL (9-16); Calcium 8.5 mg/dL (8.4-10.2); Carbon Dioxide 24 mmol/L (22-29); Chloride 107 mmol/L (96-108); Creatinine Clr Calc Pharmacy 83.6; Estimated Glomerular Filt Rate > 60; Glucose Random 100 mg/dL (60-115); Sodium 138 mmol/L (135-145); Total Protein 6.6 g/dL (6.5-8.0)
[2024-08-07] MEDS: 0.9 % Sodium Chloride 1,000 ML 100 ML IVCONT (07:14)
--- NOTE | 2024-08-07 07:22 | PM.PNGS ---
Subjective Subjective Date of Service: 08/07/24 Interval history: Patient evaluated this morning. Still having right upper quadrant symptoms. Discussed with the patient her MRCP findings suggestive of choledocholithiasis which may require ERCP Physical Exam Vital Signs: Vital Signs: Last Vital Signs Temp 97.8 F 08/07/24 05:14 Pulse 80 08/07/24 05:14 Resp 18 08/07/24 05:14 BP 97/47 L 08/07/24 05:14 Pulse Ox 92 08/07/24 05:14 O2 Del Method Room Air 08/07/24 05:14 BMI result Body Mass Index 32.2 GI: Other: Globe and has a. Right upper quadrant tenderness Objective Data Active Medications Acetaminophen (Acetaminophen 325 Mg Tablet) 650 mg PO Q6H PRN PRN Reason: Pain, Mild 1-3,fever,headache Last Admin: 08/07/24 03:33 Dose: 650 mg Documented By: IVA Albuterol Sulfate (Albuterol Sulfate 90 Mcg 8 Gm Inhaler) 2 puff INHALE Q6H PRN PRN Reason: shortness of breath or wheezing Divalproex Sodium (Divalproex Sodium Sprinkles 125 Mg Cap.) 125 mg PO DAILY [facility] Divalproex Sodium (Divalproex Sodium 500 Mg Tablet.) 500 mg PO BEDTIME [facility] Duloxetine HCl (Duloxetine Hcl 60 Mg Capsule.) 60 mg PO BID [facility] Gabapentin (Gabapentin 600 Mg Tablet) 600 mg PO QID [facility] Sodium Chloride (Ns) 1,000 mls @ 100 mls/hr IVCONT .Q10H [facility] Last Admin: 08/07/24 07:14 Dose: 100 mls/hr Documented By: NANCY Piperacillin Sod/Tazobactam (Sod 3.375 gm/ Sodium Chloride) 50 mls @ 100 mls/hr IV Q6H [facility] Lorazepam (Lorazepam 1 Mg Tablet) 1 mg PO BID PRN PRN Reason: anxiety Melatonin (Melatonin 3 Mg Tablet) 6 mg PO BEDTIME PRN PRN Reason: Insomnia Morphine Sulfate (Morphine Sulfate 4 Mg/Ml Cartridge) 3 mg IVPUSH Q4H PRN; Protocol PRN Reason: Pain, Severe (Pain Scale 7-10) Last Admin: 08/07/24 05:26 Dose: 3 mg Documented By: TANVIR Morphine Sulfate (Morphine Sulfate 4 Mg/Ml Cartridge) 3 mg IVPUSH Q6H PRN; Protocol PRN Reason: Pain, Moderate(Pain Scale 4-6) Ondansetron HCl (Ondansetron Hcl 4 Mg/2 Ml Vial) 4 mg IVPUSH Q8H PRN PRN Reason: Nausea and Vomiting Pantoprazole Sodium (Pantoprazole Sodium 20 Mg Tablet.Dr) 40 mg PO DAILY@0630 [facility] Quetiapine Fumarate (Quetiapine Fumarate 50 Mg Tablet) 50 mg PO DAILY [facility] Quetiapine Fumarate (Quetiapine Fumarate 100 Mg Tablet) 100 mg PO BEDTIME [facility] Sodium Chloride (0.9 % Sodium Chloride Flush 3 Ml Syringe) 3 ml IVFLUSH QSHIFT [facility] Last Admin: 08/07/24 00:38 Dose: Not Given Documented By: TANVIR Non-Admin Reason: IV Running Labs 08/07/24 04:42 08/07/24 04:42 Labs: Laboratory Results - last 24 hr 08/06/24 08/06/24 08/07/24 15:34 15:36 04:42 MCV 94.3 MCH 31.8 MCHC 33.7 RDW 13.1 Plt Count 356 MPV 9.1 L Immature Gran % (Auto) 0.5 H Neut % (Auto) 71.3 Lymph % (Auto) 11.4 L [place] % (Auto) 14.5 H Eos % (Auto) 2.1 Baso % (Auto) 0.2 Lymph # (Auto) 1.3 [place] # (Auto) 1.6 H Eos # (Auto) 0.2 Baso # (Auto) 0.0 Abs Immat Gran (auto) 0.06 H Absolute Neuts (auto) 8.0 Absolute Nucleated RBC 0.000 Nucleated RBC % (auto) 0.0 Smear Tech's Comments VERIFIED Anion Gap 11 L Estim Creat Clear Calc 83.6 Estimated GFR > 60 Random Glucose 100 Lactic Acid 1.0 Calcium 8.5 D Total Bilirubin 0.4 AST 51 H ALT 128 H Alkaline Phosphatase 262 H Total Protein 6.6 Albumin 3.3 L Blood Type O Positive Antibody Screen NEGATIVE Procedures Date of Service Date of Service: 08/07/24 Progress Note: A&P Assessment and plan (1) Acute cholecystitis: Status: Acute (2) Choledocholithiasis: Status: Acute (3) Cholelithiasis: Status: Acute (4) Elevated liver enzymes: Status: Acute Plan We will await GI consultation regarding possible ERCP. Patient will be added to operating room schedule tomorrow for possible laparoscopic cholecystectomy with cholangiogram pending GI evaluation. Discussed with patient and she understands and agrees. All questions answered. Time Spent With Patient Time: Total time managing care of this patient today ____ minutes. Quality Stroke Does the patient have a stroke diagnosis?: No VTE Prior VTE?: No VTE Risk Level:: Surgical - low VTE Device Contraindication: N/A - Device Ordered VTE Drug Contraindication: N/A - Med Ordered
[2024-08-07] MEDS: Pantoprazole Sodium 20 MG TABLET.DR 40 MG PO (07:29)
[2024-08-07] MEDS: LORazepam 1 MG TABLET PO (07:47)
[2024-08-07] MEDS: QUEtiapine Fumarate 50 MG TABLET PO (08:47)
[2024-08-07] MEDS: Divalproex Sodium Sprinkles 125 MG CAP.DR.SPR PO (08:47)
[2024-08-07] MEDS: DULoxetine HCl 60 MG CAPSULE.DR PO (08:47)
[2024-08-07] MEDS: Gabapentin 600 MG TABLET PO ×3 (08:47→17:15)
--- NOTE | 2024-08-07 09:16 | MHC.CM.PN ---
IMM delivered. Patient lives in a home w/ , Gerald. Ambulates w/ cane PRN. assists w/ bathing PRN. PCP João Reyes MD No HCP. CM provided education and offered assistance. Patient declined. DP: Goal is home w/ family support. to transport. CM will continue to follow.
--- NOTE | 2024-08-07 13:21 | MHC.SHP ---
Pre-Procedural Eval Section A - 24 Hr Update-Section A only Date of Service: 08/07/24 The patient is an INPATIENT: Yes Changes since office visit: No Cold of Flu in the past 2 weeks, No New Medical Problems, No Changes in Medication and No Patient answered all questions The patient has been examined within 24 hours of the surgical procedure. The History & Physical has been completed within 30 days and I have reviewed it.: Yes Section B - Complete if H&P > 30 days Chief Complaint: abdominal pain Allergies: Allergies Allergy/AdvReac Type Severity Reaction Status Date / Time miconazole Allergy Severe skin in Verified 08/06/24 14:37 [From Remedy Antifungal] mouth peels clarithromycin [From Biaxin] Allergy Unknown Unknown Verified 08/06/24 14:37 codeine Allergy Unknown Unknown Verified 08/06/24 14:37 terbinafine [From Lamisil] Allergy Unknown Unknown Verified 08/06/24 14:37 trazodone Allergy Unknown unknown Verified 08/06/24 14:37 pregabalin [From Lyrica] AdvReac Intermediate Depression Verified 08/06/24 14:37 - crying lotrimin spray Allergy Mild skin Uncoded 04/12/24 09:09 inflammation Plan I have reviewed the history and physical and performed a pertinent physical examination on my patient. No changes have occurred unless specified. Time Spent With Patient Time: Total time managing care of this patient today ____ minutes.
--- NOTE | 2024-08-07 13:22 | PM.EVENT ---
Event Note Date of Service: 08/07/24 Event Note: GI consult dictated ERCP scheduled for today for cbd stone Time Spent With Patient Time: Total time managing care of this patient today ____ minutes.
--- NOTE | 2024-08-07 14:30 | HO.ANESPROP2 ---
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) Urine incontinence (Acute) Unaware of passing urine (Acute) Thoracic spine pain (Acute) Left cervical radiculopathy (Acute) Cervical spine pain (Acute) Abdominal pain (Acute) Corns and callus (Acute) Annual physical exam (Acute) History of gastric ulcer (Acute) Cellulitis of left foot (Acute) Suicide attempt by drug overdose (Acute) Lesion of lung (Acute) Radicular pain of both lower extremities (Acute) Tinea pedis (Acute) Onychomycosis (Acute) Polydipsia (Acute) Left foot pain (Acute) Obesity (BMI 30-39.9) (Acute) Bipolar disorder (Acute) Anxiety (Acute) Insomnia (Acute) Constipation (Acute) Chronic kidney disease (CKD), stage II (mild) (Acute) Vitamin D deficiency (Acute) Goiter (Acute) Lichen planus (Acute) Elevated liver enzymes (Acute) Impaired fasting glucose (Acute) Pure hypercholesterolemia (Acute) Lumbar degenerative disc disease (Acute) Denies MONA Patient very sleepy-speech slurred. Morphine and gabapentin about an hour and 20 minutes ago. Other sedating meds earlier in the morning Anemia Past Medical History Medical History Fever Cholelithiasis Suicide attempt by drug overdose Obesity (BMI 30-39.9) Bipolar disorder Anxiety Insomnia Constipation Chronic kidney disease (CKD), stage II (mild) Vitamin D deficiency Goiter Lichen planus Elevated liver enzymes Impaired fasting glucose Pure hypercholesterolemia Lumbar degenerative disc disease Family History Family History Father Scoliosis Mother Hypertension Cardiovascular disease Asthma Sister Asthma Arthritis Other Substance abuse Family history of problems with anesthesia: No Surgical History Surgical History History of laminectomy (~01/2011) History of spinal fusion (~01/2011) History of hysterectomy (~1993) History of Problems with Anesthesia: No Social History Social History Household Members: Spouse Housing: House Do you presently have visiting nurse or other home services: No Alcohol intake: current Alcohol intake frequency: holidays/special occasions only Patient Tobacco Use Status: Former Tobacco user e-Cigarette/Vaping Use: Never Used Second Hand Smoke Exposure: No Substance Use Type: Marijuana service: No Current occupational status: disabled Cognitive needs: No Hearing needs: No Vision needs: Yes Meds Allergies Allergy/AdvReac Type Severity Reaction Status Date / Time miconazole Allergy Severe skin in Verified 08/06/24 14:37 [From Remedy Antifungal] mouth peels clarithromycin [From Biaxin] Allergy Unknown Unknown Verified 08/06/24 14:37 codeine Allergy Unknown Unknown Verified 08/06/24 14:37 terbinafine [From Lamisil] Allergy Unknown Unknown Verified 08/06/24 14:37 trazodone Allergy Unknown unknown Verified 08/06/24 14:37 pregabalin [From Lyrica] AdvReac Intermediate Depression Verified 08/06/24 14:37 - crying lotrimin spray Allergy Mild skin Uncoded 04/12/24 09:09 inflammation Active Medications: Current Medications Acetaminophen (Acetaminophen 325 Mg Tablet) 650 mg PO Q6H PRN PRN Reason: Pain, Mild 1-3,fever,headache Last Admin: 08/07/24 12:32 Dose: 650 mg Albuterol Sulfate (Albuterol Sulfate 90 Mcg 8 Gm Inhaler) 2 puff INHALE Q6H PRN PRN Reason: shortness of breath or wheezing Divalproex Sodium (Divalproex Sodium Sprinkles 125 Mg Cap.) 125 mg PO DAILY [facility] Last Admin: 08/07/24 08:47 Dose: 125 mg Divalproex Sodium (Divalproex Sodium 500 Mg Tablet.) 500 mg PO BEDTIME [facility] Duloxetine HCl (Duloxetine Hcl 60 Mg Capsule.) 60 mg PO BID [facility] Last Admin: 08/07/24 08:47 Dose: 60 mg Gabapentin (Gabapentin 600 Mg Tablet) 600 mg PO QID [facility] Last Admin: 08/07/24 13:24 Dose: 600 mg Sodium Chloride (Ns) 1,000 mls @ 100 mls/hr IVCONT .Q10H [facility] Last Admin: 08/07/24 07:14 Dose: 100 mls/hr Piperacillin Sod/Tazobactam (Sod 3.375 gm/ Sodium Chloride) 50 mls @ 100 mls/hr IV Q6H [facility] Lorazepam (Lorazepam 1 Mg Tablet) 1 mg PO BID PRN PRN Reason: anxiety Last Admin: 08/07/24 07:47 Dose: 1 mg Melatonin (Melatonin 3 Mg Tablet) 6 mg PO BEDTIME PRN PRN Reason: Insomnia Morphine Sulfate (Morphine Sulfate 4 Mg/Ml Cartridge) 3 mg IVPUSH Q4H PRN; Protocol PRN Reason: Pain, Severe (Pain Scale 7-10) Last Admin: 08/07/24 13:24 Dose: 3 mg Morphine Sulfate (Morphine Sulfate 4 Mg/Ml Cartridge) 3 mg IVPUSH Q6H PRN; Protocol PRN Reason: Pain, Moderate(Pain Scale 4-6) Ondansetron HCl (Ondansetron Hcl 4 Mg/2 Ml Vial) 4 mg IVPUSH Q8H PRN PRN Reason: Nausea and Vomiting Pantoprazole Sodium (Pantoprazole Sodium 20 Mg Tablet.) 40 mg PO DAILY@0630 [facility] Last Admin: 08/07/24 07:29 Dose: 40 mg Quetiapine Fumarate (Quetiapine Fumarate 50 Mg Tablet) 50 mg PO DAILY [facility] Last Admin: 08/07/24 08:47 Dose: 50 mg Quetiapine Fumarate (Quetiapine Fumarate 100 Mg Tablet) 100 mg PO BEDTIME [facility] Sodium Chloride (0.9 % Sodium Chloride Flush 3 Ml Syringe) 3 ml IVFLUSH QSHIFT [facility] Last Admin: 08/07/24 13:54 Dose: Not Given Home Medications ?Medication ?Instructions ?Recorded ?Confirmed ?Last Taken ?Type divalproex 125 mg tablet,delayed 125 mg PO DAILY 08/06/24 08/06/24 08/06/24 History release (Depakote) pantoprazole 40 mg tablet,delayed 40 mg PO DAILY@0630 08/06/24 08/06/24 08/06/24 History release quetiapine 50 mg tablet 50 mg PO DAILY 08/06/24 08/06/24 08/06/24 History quetiapine 50 mg tablet 100 mg PO BEDTIME 03/08/06/24 08/05/24 History Exam Height,Weight and Vital Signs: Height 5 ft 6 in Weight 89.5 kg Last Vital Signs Temp 97.8 F 08/07/24 05:14 Pulse 80 08/07/24 05:14 Resp 18 08/07/24 05:14 BP 97/47 L 08/07/24 05:14 Pulse Ox 92 08/07/24 05:14 O2 Del Method Room Air 08/07/24 05:14 Vital Signs Temp Pulse Resp BP Pulse Ox O2 Del Method 08/07/24 14:27 98.1 F 86 16 110/64 92 Room Air 08/07/24 05:14 97.8 F 80 18 97/47 L 92 Room Air 08/07/24 00:16 98.5 F 91 16 112/63 93 Room Air 08/06/24 20:55 98.2 F 83 16 136/85 97 Room Air 08/06/24 18:01 97.0 F 74 16 110/64 95 Room Air 02 sats in RA 88-90% Pertinent Lab Results Pertinent Lab Results: Laboratory Tests 08/06/24 08/06/24 08/07/24 15:34 15:36 04:42 WBC 11.2 H RBC 3.71 L Hgb 11.8 L Hct 35.0 L MCV 94.3 MCH 31.8 MCHC 33.7 RDW 13.1 Plt Count 356 MPV 9.1 L Immature Gran % (Auto) 0.5 H Neut % (Auto) 71.3 Lymph % (Auto) 11.4 L Hancock % (Auto) 14.5 H Eos % (Auto) 2.1 Baso % (Auto) 0.2 Lymph # (Auto) 1.3 Hancock # (Auto) 1.6 H Eos # (Auto) 0.2 Baso # (Auto) 0.0 Abs Immat Gran (auto) 0.06 H Absolute Neuts (auto) 8.0 Absolute Nucleated RBC 0.000 Nucleated RBC % (auto) 0.0 Smear Tech's Comments VERIFIED Sodium 138 Potassium 4.0 Chloride 107 Carbon Dioxide 24 Anion Gap 11 L BUN 7 L Creatinine 0.77 Estim Creat Clear Calc 83.6 Estimated GFR > 60 Random Glucose 100 Lactic Acid 1.0 Calcium 8.5 D Total Bilirubin 0.4 AST 51 H ALT 128 H Alkaline Phosphatase 262 H Total Protein 6.6 Albumin 3.3 L Blood Type O Positive Antibody Screen NEGATIVE Airway Mallampati Class: III (Overbite) TM Dist: >3cm Neck ROM: Full (Extension ok) Loose/Missing/Broken Teeth: Yes (Several missing teeth. Denies broken or loose teeth) Heart: RRR Lungs: CTAB Assessment and Plan Assessment Anesthesia Assessment: Anesthesia Plan Discussed and Chart Reviewed Final Anesthetic Review Family History of Problems with Anesthesia: No History of Problems with Anesthesia: No NPO: Yes ASA Class: III and Emergency Final Preanesthetic Review: No Changes in Pt Med Stat, Meds/Allgs Chart Reviewed, Consent Obtained/Reviewed and Anes Risks/Benef Reviewed Patient Risk: Intermediate Procedure Risk: Intermediate Assessment/Block/Sedation in SS: Assess/Block/Sedation-SS Anesthetic Plan Anesthetic Plan: GA Disposition: Standard PACU and Inp. Admit - Standard Bed
--- NOTE | 2024-08-07 15:38 | PM.EVENT ---
Event Note Date of Service: 08/07/24 Event Note: ERCP dictated 5mm cbd stone extracted after sphincterotomy cystic duct not seen to fill rec: lap alex as planned. Time Spent With Patient Time: Total time managing care of this patient today ____ minutes.
--- NOTE | 2024-08-07 15:41 | PM.OP ---
Brief Operative Note Date of Service: 08/07/24 Pre-op diagnosis: cbd stone Post-op diagnosis: same Procedure: ERCP Surgeon: Timo Bright MD Anesthesia: MAC Was an Fabric Worker Supervisor used for this Procedure?: No Estimated blood loss (mL): 0 Pathology: none sent Condition: stable Disposition: PACU
--- NOTE | 2024-08-07 17:10 | CONS_ITS ---
DATE OF SERVICE: 08/07/2024 REFERRING PHYSICIAN: Dr. Ansari REASON FOR CONSULTATION: Common bile duct stone. HISTORY OF PRESENT ILLNESS: The patient is a pleasant 64-year-old woman, who was admitted to the hospital after presenting to the emergency department yesterday with complaints of epigastric and right upper quadrant discomfort. As part of her evaluation, she underwent imaging, which has documented findings consistent with acute cholecystitis and hepatic steatosis. The common bile duct was 7 mm on ultrasound imaging and MRCP was obtained after liver function tests were noted to be abnormal. There was a filling defect within the distal common bile duct concerning for choledocholithiasis. The changes of acute cholecystitis were also noted. PAST MEDICAL HISTORY: 1. Bipolar disorder. 2. Constipation. 3. Gallstones as above. 4. Chronic kidney disease. 5. Vitamin D deficiency. 6. Goiter. 7. Impaired fasting glucose. 8. Hyperlipidemia. 9. Disk disease. CURRENT MEDICATIONS: Her current medication list is reviewed in the chart. ALLERGIES: MULTIPLE MEDICATION ALLERGIES ARE REVIEWED. PAST SURGICAL HISTORY: Includes laminectomy, spinal fusion, and hysterectomy. FAMILY HISTORY: This is reviewed and is noncontributory. SOCIAL HISTORY: There is no current tobacco, alcohol, or substance abuse. REVIEW OF SYSTEMS: SKIN: No pruritus. HEENT: Negative. CARDIOPULMONARY: No shortness of breath or chest pain. GASTROINTESTINAL: As above. GENITOURINARY: Negative. NEUROPSYCHIATRIC: Negative. PHYSICAL EXAMINATION: GENERAL: Shows a pleasant female, lying comfortably in bed. VITAL SIGNS: Reviewed in electronic medical record and are stable. SKIN: Anicteric. HEENT: Shows no scleral icterus. NECK: Without lymphadenopathy or thyromegaly. LUNGS: Clear. HEART: Shows a regular rate and rhythm. S1, S2. No murmur. ABDOMEN: Soft without focal masses or tenderness. Bowel sounds are present. No organomegaly is noted. EXTREMITIES: Without edema. LABORATORY DATA AND IMAGING STUDIES: Reviewed. IMPRESSION: Common bile duct stone. PLAN: I have discussed the ERCP with the patient. She is aware the risks and benefits and agrees to proceed. This will be scheduled for later today. Thanks for asking me to see her. I will follow her in the hospital with you. MD SUNNY Boswell/HILDA / [phone]
[2024-08-07] MEDS: Lactated Ringers 1,000 ML 100 ML IVCONT (17:17)
--- NOTE | 2024-08-07 18:25 | OP_ITS ---
DATE OF SERVICE: 08/07/2024 SURGEON: Timo Bright MD INDICATIONS: Common bile duct stone identified on MR imaging. PREOPERATIVE DIAGNOSIS: POSTOPERATIVE DIAGNOSIS: PROCEDURE PERFORMED: ERCP with sphincterotomy and stone extraction. ESTIMATED BLOOD LOSS: COMPLICATIONS: ANESTHESIA: General anesthesia. ASSISTANTS: SPECIMENS: DESCRIPTION OF PROCEDURE: A history and physical was performed. The risks and benefits of the procedure were explained to the patient. Informed consent was obtained. The patient was placed in the prone position with a wedge under the right shoulder. The Olympus therapeutic duodenum scope was introduced into the esophagus, stomach, and duodenum. Examination was performed. The scope was removed. She tolerated the procedure well and was returned to the recovery area in stable condition. FINDINGS: Limited examination of the esophagus, stomach, and duodenum was within normal limits. There was a small periampullary diverticulum. Clear yellow bile was noted to drain from the major papilla. Access to the common bile duct was gained using a guidewire and sphincterotome. Cholangiography showed slight dilation of the common bile duct at about 8 mm. No definite stone was identified. Because of the patient's previous imaging studies, a small stone could not be excluded. A sphincterotomy was performed to approximately 8 mm with no immediate complications. Next, a 12 mm balloon was used to extract a small 5 mm stone. There was excellent drainage of clear yellow bile at the termination of the procedure. The cystic duct was not identified to fill. No pancreatogram was attempted or obtained, although it appears that the wire entered the pancreatic duct once. IMPRESSION: Common bile duct stone. RECOMMENDATION: 1. Follow up as needed. 2. Laparoscopic colonoscopy as planned by Dr. Oneill. MD SUNNY Boswell/HILDA / [id number] MTDD
[2024-08-07] MEDS: Piperacillin Sodium/Tazobactam 3.375 GM in 0.9 % Sodium Chloride 50 ML IV (22:11)
[2024-08-08] VITALS (14 sets, daily range): BP systolic 113–155; BP diastolic 58–92; PULSE 63–94; RESP 10–18; TEMP 36.1–36.9; O2SAT 90–96
[2024-08-08] MEDS: Lactated Ringers 1,000 ML 100 ML IVCONT ×3 (03:10→18:36)
[2024-08-08] MEDS: Piperacillin Sodium/Tazobactam 3.375 GM in 0.9 % Sodium Chloride 50 ML IV ×4 (03:43→22:30)
[2024-08-08] MEDS: Divalproex Sodium Sprinkles 125 MG CAP.DR.SPR PO (08:08)
[2024-08-08] MEDS: DULoxetine HCl 60 MG CAPSULE.DR PO ×2 (08:08→20:02)
[2024-08-08] MEDS: QUEtiapine Fumarate 50 MG TABLET PO (08:08)
[2024-08-08] MEDS: Acetaminophen 325 MG TABLET 650 MG PO (08:08)
[2024-08-08] MEDS: Gabapentin 600 MG TABLET PO ×3 (08:08→20:02)
--- NOTE | 2024-08-08 08:20 | HO.POSTANES ---
Post Anesthesia Evaluation Post Anesthesia Evaluation Date of Service: 08/08/24 Vital Signs: Vital Signs Temp Pulse Resp BP Pulse Ox O2 Del Method O2 Flow Rate 08/08/24 07:23 98 F 63 18 131/63 96 Nasal Cannula 3 08/08/24 03:41 97.3 F 68 16 123/67 96 Nasal Cannula 3 08/08/24 00:58 114/62 08/07/24 23:44 97.1 F 66 16 97/56 L 93 Nasal Cannula 3 Anesthesia: General Mental Status: Awake Pain Control: Satisfactory Nausea/Vomiting: None Hydration: Adequate Anesthesia-Related Issues: No Anes. Related Issues
--- NOTE | 2024-08-08 09:55 | MHC.SHP ---
Pre-Procedural Eval Section A - 24 Hr Update-Section A only Date of Service: 08/08/24 The patient is an INPATIENT: Yes Changes since office visit: No Cold of Flu in the past 2 weeks, No New Medical Problems, No Changes in Medication and No Patient answered all questions Section B - Complete if H&P > 30 days Chief Complaint: abdominal pain Allergies: Allergies Allergy/AdvReac Type Severity Reaction Status Date / Time miconazole Allergy Severe skin in Verified 08/06/24 14:37 [From Remedy Antifungal] mouth peels clarithromycin [From Biaxin] Allergy Unknown Unknown Verified 08/06/24 14:37 codeine Allergy Unknown Unknown Verified 08/06/24 14:37 terbinafine [From Lamisil] Allergy Unknown Unknown Verified 08/06/24 14:37 trazodone Allergy Unknown unknown Verified 08/06/24 14:37 pregabalin [From Lyrica] AdvReac Intermediate Depression Verified 08/06/24 14:37 - crying lotrimin spray Allergy Mild skin Uncoded 04/12/24 09:09 inflammation Review of Systems Sugical H&P ROS: Negative: Constitution, Cardiovascular, Respiratory, Neurological, Psychiatric, Hem-Onc, Allergic/Immunologic, Gastrointestinal, Genitourinary, Musculoskeletal, Integumentary, Endocrine and Eyes/Ears/Nose/Throat Exam Surgical H&P Exam: Normal: HEENT, Normal: Heart, Normal: Lungs, Normal: Extremities, Normal: Abdomen, Normal: Skin and Normal: Neurological Plan I have reviewed the history and physical and performed a pertinent physical examination on my patient. No changes have occurred unless specified. Time Spent With Patient Time: Total time managing care of this patient today ____ minutes.
--- NOTE | 2024-08-08 10:10 | P.PNGI_ITS ---
Subjective Subjective Date of Service: 08/08/24 Interval History: feel well today awaiting lap ccy Critical Care Time (minutes): 0 Physical Exam 2 Vital Signs: Vital Signs: Last Vital Signs Temp 98 F 08/08/24 07:23 Pulse 63 08/08/24 07:23 Resp 18 08/08/24 07:23 BP 131/63 08/08/24 07:23 Pulse Ox 96 08/08/24 07:23 O2 Del Method Nasal Cannula 08/08/24 07:23 O2 Flow Rate 3 08/08/24 07:23 BMI result Body Mass Index 31.8 GI: Other: abdomen is soft and nontender Objective Data Labs 08/07/24 04:42 08/07/24 04:42 Microbiology Microbiology Results: Microbiology 08/06/24 15:36 Blood - Venous Blood Culture - Preliminary No growth after 24 hours. 08/06/24 15:36 Blood - Venous Blood Culture - Preliminary No growth after 24 hours. Procedures Date of Service Date of Service: 08/08/24 Progress Note: A&P Assessment and plan (1) Choledocholithiasis: Status: Acute Assessment and Plan: ERCP showed CBD stone, removed with balloon extraction doing well Time Spent With Patient Time: Total time managing care of this patient today ____ minutes. Quality Stroke Does the patient have a stroke diagnosis?: No VTE Prior VTE?: No VTE Risk Level:: Surgical - low VTE Device Contraindication: N/A - Device Ordered VTE Drug Contraindication: N/A - Med Ordered
--- NOTE | 2024-08-08 12:06 | PC.NURSE ---
22g right hnad no leaking. flushed patnently.
[2024-08-08] MEDS: Lactated Ringers 1,000 ML 50 ML IVCONT (12:15)
--- NOTE | 2024-08-08 12:30 | PC.NURSE ---
no preop med per md perry. on [facility].
--- NOTE | 2024-08-08 12:53 | HO.ANESPROP2 ---
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) Cervical spondylosis with radiculopathy (Acute) Failed back syndrome of lumbar spine (Acute) Urine incontinence (Acute) Unaware of passing urine (Acute) Thoracic spine pain (Acute) Left cervical radiculopathy (Acute) Cervical spine pain (Acute) Abdominal pain (Acute) Corns and callus (Acute) Annual physical exam (Acute) History of gastric ulcer (Acute) Cellulitis of left foot (Acute) Suicide attempt by drug overdose (Acute) Lesion of lung (Acute) Radicular pain of both lower extremities (Acute) Tinea pedis (Acute) Onychomycosis (Acute) Polydipsia (Acute) Left foot pain (Acute) Obesity (BMI 30-39.9) (Acute) Bipolar disorder (Acute) Anxiety (Acute) Insomnia (Acute) Constipation (Acute) Chronic kidney disease (CKD), stage II (mild) (Acute) Vitamin D deficiency (Acute) Goiter (Acute) Lichen planus (Acute) Elevated liver enzymes (Acute) Impaired fasting glucose (Acute) Pure hypercholesterolemia (Acute) Lumbar degenerative disc disease (Acute) Past Medical History Medical History Fever Cholelithiasis Suicide attempt by drug overdose Obesity (BMI 30-39.9) Bipolar disorder Anxiety Insomnia Constipation Chronic kidney disease (CKD), stage II (mild) Vitamin D deficiency Goiter Lichen planus Elevated liver enzymes Impaired fasting glucose Pure hypercholesterolemia Lumbar degenerative disc disease Family History Family History Father Scoliosis Mother Hypertension Cardiovascular disease Asthma Sister Asthma Arthritis Other Substance abuse Family history of problems with anesthesia: No Surgical History Surgical History History of laminectomy (~01/2011) History of spinal fusion (~01/2011) History of hysterectomy (~1993) History of Problems with Anesthesia: No Social History Social History Household Members: Spouse Housing: House Do you presently have visiting nurse or other home services: No Alcohol intake: current Alcohol intake frequency: holidays/special occasions only Patient Tobacco Use Status: Former Tobacco user e-Cigarette/Vaping Use: Never Used Second Hand Smoke Exposure: No Substance Use Type: Marijuana service: No Current occupational status: disabled Cognitive needs: No Hearing needs: No Vision needs: Yes Meds Allergies Allergy/AdvReac Type Severity Reaction Status Date / Time miconazole Allergy Severe skin in Verified 08/06/24 14:37 [From Remedy Antifungal] mouth peels clarithromycin [From Biaxin] Allergy Unknown Unknown Verified 08/06/24 14:37 codeine Allergy Unknown Unknown Verified 08/06/24 14:37 terbinafine [From Lamisil] Allergy Unknown Unknown Verified 08/06/24 14:37 trazodone Allergy Unknown unknown Verified 08/06/24 14:37 pregabalin [From Lyrica] AdvReac Intermediate Depression Verified 08/06/24 14:37 - crying lotrimin spray Allergy Mild skin Uncoded 04/12/24 09:09 inflammation Active Medications: Current Medications Acetaminophen (Acetaminophen 325 Mg Tablet) 650 mg PO Q6H PRN PRN Reason: Pain, Mild 1-3,fever,headache Last Admin: 08/08/24 08:08 Dose: 650 mg Albuterol Sulfate (Albuterol Sulfate 90 Mcg 8 Gm Inhaler) 2 puff INHALE Q6H PRN PRN Reason: shortness of breath or wheezing Divalproex Sodium (Divalproex Sodium Sprinkles 125 Mg Cap.) 125 mg PO DAILY [facility] Last Admin: 08/08/24 08:08 Dose: 125 mg Divalproex Sodium (Divalproex Sodium 500 Mg Tablet.) 500 mg PO BEDTIME [facility] Last Admin: 08/07/24 21:58 Dose: Not Given Duloxetine HCl (Duloxetine Hcl 60 Mg Capsule.) 60 mg PO BID [facility] Last Admin: 08/08/24 08:08 Dose: 60 mg Gabapentin (Gabapentin 600 Mg Tablet) 600 mg PO QID [facility] Last Admin: 08/08/24 08:08 Dose: 600 mg Haloperidol Lactate (Haloperidol Lactate 5 Mg/Ml Vial) 1 mg IVPUSH ONCE PRN PRN Reason: intractable nausea Stop: 08/08/24 18:51 Hydromorphone HCl (Hydromorphone Hcl 0.5 Mg/0.5 Ml Syringe) 0.5 mg IVPUSH Q5M PRN PRN Reason: Pain, Moderate to Severe (Pain Scale 4-10) Stop: 08/08/24 18:51 Piperacillin Sod/Tazobactam (Sod 3.375 gm/ Sodium Chloride) 50 mls @ 100 mls/hr IV Q6H [facility] Last Infusion: 08/08/24 10:38 Dose: Infused Lactated Ringer's (Lr) 1,000 mls @ 100 mls/hr IVCONT .Q10H [facility] Last Admin: 08/08/24 12:13 Dose: 100 mls/hr Lactated Ringer's (Lr) 1,000 mls @ 50 mls/hr IVCONT .Q20H [facility] Last Admin: 08/08/24 12:15 Dose: 50 mls/hr Lorazepam (Lorazepam 1 Mg Tablet) 1 mg PO BID PRN PRN Reason: anxiety Last Admin: 08/07/24 07:47 Dose: 1 mg Melatonin (Melatonin 3 Mg Tablet) 6 mg PO BEDTIME PRN PRN Reason: Insomnia Morphine Sulfate (Morphine Sulfate 4 Mg/Ml Cartridge) 3 mg IVPUSH Q4H PRN; Protocol PRN Reason: Pain, Severe (Pain Scale 7-10) Last Admin: 08/07/24 13:24 Dose: 3 mg Morphine Sulfate (Morphine Sulfate 4 Mg/Ml Cartridge) 3 mg IVPUSH Q6H PRN; Protocol PRN Reason: Pain, Moderate(Pain Scale 4-6) Naloxone HCl (Naloxone Hcl 0.4 Mg/Ml Vial) 0.04 mg IVPUSH Q5M PRN PRN Reason: Excessive sedation or RR < 8 Ondansetron HCl (Ondansetron Hcl 4 Mg/2 Ml Vial) 4 mg IVPUSH Q8H PRN PRN Reason: Nausea and Vomiting Pantoprazole Sodium (Pantoprazole Sodium 20 Mg Tablet.Dr) 40 mg PO DAILY@0630 [facility] Last Admin: 08/08/24 06:20 Dose: Not Given Quetiapine Fumarate (Quetiapine Fumarate 50 Mg Tablet) 50 mg PO DAILY [facility] Last Admin: 08/08/24 08:08 Dose: 50 mg Quetiapine Fumarate (Quetiapine Fumarate 100 Mg Tablet) 100 mg PO BEDTIME [facility] Last Admin: 08/07/24 21:58 Dose: Not Given Sodium Chloride (0.9 % Sodium Chloride Flush 3 Ml Syringe) 3 ml IVFLUSH QSHIFT [facility] Last Admin: 08/08/24 08:10 Dose: Not Given Home Medications ?Medication ?Instructions ?Recorded ?Confirmed ?Last Taken ?Type divalproex 125 mg tablet,delayed 125 mg PO DAILY 08/06/24 08/06/24 08/06/24 History release (Depakote) pantoprazole 40 mg tablet,delayed 40 mg PO DAILY@0630 08/06/24 08/06/24 08/06/24 History release quetiapine 50 mg tablet 50 mg PO DAILY 08/06/24 08/06/24 08/06/24 History quetiapine 50 mg tablet 100 mg PO BEDTIME 08/06/24 08/06/24 08/05/24 History Exam Exam Date and Time: 08/08/24 1130 Height,Weight and Vital Signs: Height 5 ft 6 in Weight 89.5 kg Last Vital Signs Temp 98.5 F 08/08/24 12:02 Pulse 67 08/08/24 12:02 Resp 16 08/08/24 12:02 BP 117/71 08/08/24 12:02 Pulse Ox 94 08/08/24 12:02 O2 Del Method Room Air 08/08/24 12:02 O2 Flow Rate 3 08/08/24 07:23 Pertinent Lab Results Pertinent Lab Results: Laboratory Tests 08/06/24 08/06/24 08/07/24 15:34 15:36 04:42 WBC 11.2 H RBC 3.71 L Hgb 11.8 L Hct 35.0 L MCV 94.3 MCH 31.8 MCHC 33.7 RDW 13.1 Plt Count 356 MPV 9.1 L Immature Gran % (Auto) 0.5 H Neut % (Auto) 71.3 Lymph % (Auto) 11.4 L Mcculloch % (Auto) 14.5 H Eos % (Auto) 2.1 Baso % (Auto) 0.2 Lymph # (Auto) 1.3 Mcculloch # (Auto) 1.6 H Eos # (Auto) 0.2 Baso # (Auto) 0.0 Abs Immat Gran (auto) 0.06 H Absolute Neuts (auto) 8.0 Absolute Nucleated RBC 0.000 Nucleated RBC % (auto) 0.0 Smear Tech's Comments VERIFIED Sodium 138 Potassium 4.0 Chloride 107 Carbon Dioxide 24 Anion Gap 11 L BUN 7 L Creatinine 0.77 Estim Creat Clear Calc 83.6 Estimated GFR > 60 Random Glucose 100 Lactic Acid 1.0 Calcium 8.5 D Total Bilirubin 0.4 AST 51 H ALT 128 H Alkaline Phosphatase 262 H Total Protein 6.6 Albumin 3.3 L Blood Type O Positive Antibody Screen NEGATIVE Airway Mallampati Class: III TM Dist: <=3cm Neck ROM: Full Loose/Missing/Broken Teeth: No (patient denies any loose or broken teeth) Heart: S1S2 Lungs: CTAB Assessment and Plan Assessment Anesthesia Assessment: Anesthesia Plan Discussed and Chart Reviewed Final Anesthetic Review Family History of Problems with Anesthesia: No History of Problems with Anesthesia: No NPO: Yes ASA Class: III Final Preanesthetic Review: No Changes in Pt Med Stat, Meds/Allgs Chart Reviewed, Consent Obtained/Reviewed and Anes Risks/Benef Reviewed Patient Risk: Low Procedure Risk: Intermediate Anesthetic Plan Anesthetic Plan: GA and Agree w/ Assess. and Plan Disposition: Standard PACU
--- NOTE | 2024-08-08 14:04 | W.PM.OPN ---
Operative Note Operative Note Date of Service: 08/08/24 Narrative: Preoperative diagnosis: [] Acute cholecystitis, history of choledocholithiasis Postop diagnosis: [] Acute phlegmonous cholecystitis, history of choledocholithiasis Procedure [] laparoscopic cholecystectomy Surgeon: [] Nino Cupola Tapper Helper: [] Thais Type of Anesthesia: [] General Indication for surgery: [] Corpulent abdomen. Markedly phlegmonous thickened, inflamed necrotic gallbladder with multiple small gallstones. Dense omental adhesions to the gallbladder. Markedly intrahepatic gallbladder. Patient was 1 day status post ERCP for removal of choledocholithiasis. Now presents for gallbladder excision. Findings: [] Patient brought to the operating room, placed on operative table supine position, after an adequate level of general anesthesia was induced, the patient's abdomen was prepped and draped in usual sterile fashion. Next, using a supraumbilical curvilinear incision, Regan technique was used to insufflate abdominal cavity to 15 mm of CO2, and upper midline and right subcostal ports x2 were placed under direct laparoscopic view, and the patient placed in reverse Trendelenburg, and tilted to the left. Very dense omental adhesions were swept off the gallbladder. A thickened turgid gallbladder was initially aspirated with an aspirating device because of the marked swelling and graspers were then used to grasped the gallbladder and it was retracted superiorly and laterally. Dense omental adhesions were swept off the gallbladder and a very thickened rind was dissected down to the hilum. Cystic artery and cystic duct were each identified, circumferentially skeletonized, traced directly into the gallbladder, and critical view obtained. Cystic duct was clipped proximally x3, distally x1, and transected. Cystic artery was clipped proximally x2, distally x1, and transected. Gallbladder, which was markedly intrahepatic ,was then cauterized from the gallbladder fossa using Bovie. Specimen was placed in an Endo-Catch bag, a retrieved through the umbilical port. Abdominal cavity was very copiously irrigated and secured hemostasis. A Dhiraj-Kinsey drain was left in the gallbladder fossa and exited through the right lateral port and secured to the skin using 2-0 nylon. Remaining Ports were then removed under direct laparoscopic view. Wounds were closed in the following manner; umbilical wound had its fascia reapproximated using interrupted 0 Vicryl sutures. Skin wounds were closed using subcuticular 4-0 Vicryl sutures followed by Steri-Strips and sterile dressings. Wounds were infiltrated with 0.5% Marcaine at completion. Sponge, needle, and instrument counts reported correct. Patient tolerated the procedure well and emerged from anesthesia stable condition. EBL minimal
[2024-08-08] MEDS: ondansetron HCL 4 MG/2 ML VIAL IVPUSH (14:41)
[2024-08-08] MEDS: HYDROmorphone HCl 0.5 MG/0.5 ML SYRINGE 0.25 MG IVPUSH ×2 (14:41→14:50)
[2024-08-08] MEDS: oxyCODONE HCl Immed Release 5 MG TABLET PO ×2 (15:13→22:34)
[2024-08-08] MEDS: LORazepam 1 MG TABLET PO ×2 (15:13→23:39)
[2024-08-08] MEDS: Morphine Sulfate 4 MG/ML CARTRIDGE 3 MG IVPUSH ×2 (15:50→19:59)
[2024-08-08] MEDS: QUEtiapine Fumarate 100 MG TABLET PO (20:02)
[2024-08-08] MEDS: Divalproex Sodium 500 MG TABLET.DR PO (20:02)
[2024-08-08] MEDS: 0.9 % Sodium Chloride Flush 3 ML SYRINGE IVFLUSH (20:05)
[2024-08-09] VITALS (7 sets, daily range): BP systolic 104–126; BP diastolic 56–71; PULSE 88–99; RESP 18; TEMP 36.2–36.9; O2SAT 88–92
[2024-08-09] MEDS: Morphine Sulfate 4 MG/ML CARTRIDGE 3 MG IVPUSH ×2 (00:13→04:48)
--- NOTE | 2024-08-09 00:25 | PC.NURSE ---
Pt anxious, restless, disoriented, s/p lap alex 08/08. Pt's PRN BID Lorazepam 1mg was next due at 03:13. circular head saw operator general surgeon Nino was notified of the pt's behavior. This RN was okay to give the PRN Lorazepam earlier per MD Oneill. Medication was administered to pt at 23:39 w/ pending effect, see JUL. Will continue to monitor. Pt's bed in lowest position, call flores w/in reach, and camera in place.
[2024-08-09] MEDS: Piperacillin Sodium/Tazobactam 3.375 GM in 0.9 % Sodium Chloride 50 ML IV ×2 (04:13→09:21)
[2024-08-09] MEDS: Lactated Ringers 1,000 ML 100 ML IVCONT (06:03)
[2024-08-09 07:11] LABS: Alanine Aminotransferase 104 U/L (0-31); Albumin Level 3.1 g/dL (3.5-5.0); Alkaline Phosphatase 171 U/L (39-117); Aspartate Amino Transferase 67 U/L (5-31); Bilirubin Direct < 0.2 mg/dL (0.0-0.5); Bilirubin Total 0.2 mg/dL (0.0-1.0); Total Protein 6.1 g/dL (6.5-8.0)
--- NOTE | 2024-08-09 07:28 | PM.PNGS ---
Subjective Subjective Date of Service: 08/09/24 Interval history: Gabby is POD 1 from laprascopic cholecystectomy with CYDNEY drain placement for acute choledocholithiasis. Pt was awake, lying in bed upon examiner entry. She states she was unable to sleep last night due to severe abdominal pain that was intermittently controlled with pain regimen. She admits to failing to use incentive spirometry since yesterday, and does report feeling short of breath. [facility]. She has been able to void spontaneously. She has not had a BM and has passed little flatus. She endorses some mild nausea, with no episodes of emesis. Tolerating clear liquid diet. Physical Exam Vital Signs: Vital Signs: Last Vital Signs Temp 98.4 F 08/09/24 04:00 Pulse 90 08/09/24 04:00 Resp 18 08/09/24 04:00 BP 126/71 08/09/24 04:00 Pulse Ox 92 08/09/24 04:00 O2 Del Method Nasal Cannula 08/09/24 04:00 O2 Flow Rate 3 08/09/24 04:00 BMI result Body Mass Index 31.8 Const: General: awake and tired appearing Orientation/consciousness: patient oriented x3 Resp: Effort & Inspection: able to speak in complete sentences, Actively coughing and symmetric chest movement Auscultation: diminished lung sounds bilateral in the lower lung saab Cardio: Rate: regular rate Rhythm: regular rhythm Heart sounds: S1 normal heart sound present and S2 normal heart sound present GI: Other: CYDNEY tube draining approximately 10-15 mL serosanguinous fluid Inspection: Yes distended and Yes incision Palpation (GI): Tenderness to palpation present (GI) Auscultation: normoactive bowel sounds Neuro: General: patient oriented x3 Objective Data Active Medications Acetaminophen (Acetaminophen 325 Mg Tablet) 650 mg PO Q6H PRN PRN Reason: Pain, Mild 1-3,fever,headache Last Admin: 08/08/24 08:08 Dose: 650 mg Documented By: TONY Albuterol Sulfate (Albuterol Sulfate 90 Mcg 8 Gm Inhaler) 2 puff INHALE Q6H PRN PRN Reason: shortness of breath or wheezing Divalproex Sodium (Divalproex Sodium Sprinkles 125 Mg ) 125 mg PO DAILY [facility] Last Admin: 08/08/24 08:08 Dose: 125 mg Documented By: TONY Divalproex Sodium (Divalproex Sodium 500 Mg Tablet.) 500 mg PO BEDTIME [facility] Last Admin: 08/08/24 20:02 Dose: 500 mg Documented By: WILLIE Duloxetine HCl (Duloxetine Hcl 60 Mg Capsule.) 60 mg PO BID [facility] Last Admin: 08/08/24 20:02 Dose: 60 mg Documented By: WILLIE Gabapentin (Gabapentin 600 Mg Tablet) 600 mg PO QID [facility] Last Admin: 08/08/24 20:02 Dose: 600 mg Documented By: WILLIE Piperacillin Sod/Tazobactam (Sod 3.375 gm/ Sodium Chloride) 50 mls @ 100 mls/hr IV Q6H [facility] Last Infusion: 08/09/24 04:47 Dose: Infused Documented By: WILLIE Lactated Ringer's (Lr) 1,000 mls @ 100 mls/hr IVCONT .Q10H [facility] Last Admin: 08/09/24 06:03 Dose: 100 mls/hr Documented By: WILLIE Lorazepam (Lorazepam 1 Mg Tablet) 1 mg PO BID PRN PRN Reason: anxiety Last Admin: 08/08/24 23:39 Dose: 1 mg Documented By: WILLIE Comments: okay by MD Oneill to give medication early Melatonin (Melatonin 3 Mg Tablet) 6 mg PO BEDTIME PRN PRN Reason: Insomnia Morphine Sulfate (Morphine Sulfate 4 Mg/Ml Cartridge) 3 mg IVPUSH Q4H PRN; Protocol PRN Reason: Pain, Severe (Pain Scale 7-10) Last Admin: 08/09/24 04:48 Dose: 3 mg Documented By: WILLIE Ondansetron HCl (Ondansetron Hcl 4 Mg/2 Ml Vial) 4 mg IVPUSH Q8H PRN PRN Reason: Nausea and Vomiting Last Admin: 08/08/24 14:41 Dose: 4 mg Documented By: JAZZY Oxycodone HCl (Oxycodone Hcl Immed Release 5 Mg Tablet) 5 mg PO Q4H PRN PRN Reason: Pain, Moderate(Pain Scale 4-6) Last Admin: 08/08/24 22:34 Dose: 5 mg Documented By: WILLIE Comments: per pt request Pantoprazole Sodium (Pantoprazole Sodium 20 Mg Tablet.) 40 mg PO DAILY@0630 [facility] Last Admin: 08/09/24 05:45 Dose: Not Given Documented By: WILLIE Non-Admin Reason: Patient Refused Quetiapine Fumarate (Quetiapine Fumarate 50 Mg Tablet) 50 mg PO DAILY [facility] Last Admin: 08/08/24 08:08 Dose: 50 mg Documented By: TONY Quetiapine Fumarate (Quetiapine Fumarate 100 Mg Tablet) 100 mg PO BEDTIME [facility] Last Admin: 08/08/24 20:02 Dose: 100 mg Documented By: WILLIE Sodium Chloride (0.9 % Sodium Chloride Flush 3 Ml Syringe) 3 ml IVFLUSH QSHIFT [facility] Last Admin: 08/08/24 20:05 Dose: 3 ml Documented By: WILLIE Labs 08/07/24 04:42 08/07/24 04:42 Labs: Laboratory Results - last 24 hr 08/09/24 06:38 Hold Purple Top SEE NOTE Total Bilirubin 0.2 Direct Bilirubin < 0.2 AST 67 H ALT 104 H Alkaline Phosphatase 171 H Total Protein 6.1 L Albumin 3.1 L Microbiology Microbiology Results: Microbiology 08/06/24 15:36 Blood Culture - Preliminary Blood - Venous No growth after 48 hours. 08/06/24 15:36 Blood Culture - Preliminary Blood - Venous No growth after 48 hours. Procedures Date of Service Date of Service: 08/09/24 Progress Note: A&P Assessment and plan Plan Gabby is POD 1 from laprascopic cholecystectomy with CYDNEY drain placement. Hypoxia Given her current dyspnea, and is saturating 92% on 3 L/min, bibasilar decreased breath sounds, concern for atelectasis vs PNA. She is afebrile, though has been mildly tachycardic in 90s postoperatively. -Encouraged pt to use incentive spirometry 10x/hr for atelectasis prevention. -Low threshold for CXR. S/p laprascopic cholecystectomy w/ CYDNEY drain Drain output serosanguinous. 240 mL drained since placement. -Continue zosyn -Continue to monitor I&Os and encourage ambulation. Pain management -Pain continues to be inadequately controlled with current pain regimen. Diet Pt tolerating clear liquid diet with minimal nausea and no episodes of emesis. Advance diet as tolerated. Time Spent With Patient Time: Total time managing care of this patient today ____ minutes. Quality Stroke Does the patient have a stroke diagnosis?: No VTE Prior VTE?: No VTE Risk Level:: Surgical - low VTE Device Contraindication: N/A - Device Ordered VTE Drug Contraindication: N/A - Med Ordered
--- NOTE | 2024-08-09 08:03 | PM.PNGS ---
Subjective Subjective Date of Service: 08/09/24 Interval history: She reports a difficult night and was unable to sleep again. RN reports agitation overnight. She feels improved this morning but reports oral oxycodone not relieving pain. Tolerating solid diet. OOB to bathroom. Would like to go home. Physical Exam Vital Signs: Vital Signs: Last Vital Signs Temp 98.4 F 08/09/24 04:00 Pulse 90 08/09/24 04:00 Resp 18 08/09/24 04:00 BP 126/71 08/09/24 04:00 Pulse Ox 92 08/09/24 04:00 O2 Del Method Nasal Cannula 08/09/24 04:00 O2 Flow Rate 3 08/09/24 04:00 BMI result Body Mass Index 31.8 Const: General: comfortable, no acute distress and alert Orientation/consciousness: patient oriented x3 Resp: Effort & Inspection: normal respiratory effort, not labored, not tachypneic and no use of accessory muscles GI: Other: dressings clean and intact CYDNEY drain with serosanguineous output mild incisional tenderness Inspection: No distended Palpation (GI): Soft to palpation and no guarding Skin: General skin exam: no rashes or lesions noted and no jaundice Neuro: General: patient oriented x3 and moves all extremities Objective Data Active Medications Albuterol Sulfate (Albuterol Sulfate 90 Mcg 8 Gm Inhaler) 2 puff INHALE Q6H PRN PRN Reason: shortness of breath or wheezing Divalproex Sodium (Divalproex Sodium Sprinkles 125 Mg ) 125 mg PO DAILY [facility] Last Admin: 08/08/24 08:08 Dose: 125 mg Documented By: TONY Divalproex Sodium (Divalproex Sodium 500 Mg Tablet.) 500 mg PO BEDTIME [facility] Last Admin: 08/08/24 20:02 Dose: 500 mg Documented By: WILLIE Duloxetine HCl (Duloxetine Hcl 60 Mg Capsule.) 60 mg PO BID [facility] Last Admin: 08/08/24 20:02 Dose: 60 mg Documented By: WILLIE Gabapentin (Gabapentin 600 Mg Tablet) 600 mg PO QID [facility] Last Admin: 08/08/24 20:02 Dose: 600 mg Documented By: WILLIE Piperacillin Sod/Tazobactam (Sod 3.375 gm/ Sodium Chloride) 50 mls @ 100 mls/hr IV Q6H [facility] Last Infusion: 08/09/24 04:47 Dose: Infused Documented By: WILLIE Lorazepam (Lorazepam 1 Mg Tablet) 1 mg PO BID PRN PRN Reason: anxiety Last Admin: 08/08/24 23:39 Dose: 1 mg Documented By: WILLIE Comments: okay by MD Oneill to give medication early Melatonin (Melatonin 3 Mg Tablet) 6 mg PO BEDTIME PRN PRN Reason: Insomnia Morphine Sulfate (Morphine Sulfate 4 Mg/Ml Cartridge) 3 mg IVPUSH Q4H PRN; Protocol PRN Reason: Pain, Severe (Pain Scale 7-10) Last Admin: 08/09/24 04:48 Dose: 3 mg Documented By: WILLIE Ondansetron HCl (Ondansetron Hcl 4 Mg/2 Ml Vial) 4 mg IVPUSH Q8H PRN PRN Reason: Nausea and Vomiting Last Admin: 08/08/24 14:41 Dose: 4 mg Documented By: JAZZY Pantoprazole Sodium (Pantoprazole Sodium 20 Mg Tablet.Dr) 40 mg PO DAILY@0630 [facility] Last Admin: 08/09/24 05:45 Dose: Not Given Documented By: WILLIE Non-Admin Reason: Patient Refused Quetiapine Fumarate (Quetiapine Fumarate 50 Mg Tablet) 50 mg PO DAILY [facility] Last Admin: 08/08/24 08:08 Dose: 50 mg Documented By: TONY Quetiapine Fumarate (Quetiapine Fumarate 100 Mg Tablet) 100 mg PO BEDTIME [facility] Last Admin: 08/08/24 20:02 Dose: 100 mg Documented By: WILLIE Sodium Chloride (0.9 % Sodium Chloride Flush 3 Ml Syringe) 3 ml IVFLUSH QSHIFT [facility] Last Admin: 08/08/24 20:05 Dose: 3 ml Documented By: WILLIE Labs 08/07/24 04:42 08/07/24 04:42 Labs: Laboratory Results - last 24 hr 08/09/24 06:38 Hold Purple Top SEE NOTE Total Bilirubin 0.2 Direct Bilirubin < 0.2 AST 67 H ALT 104 H Alkaline Phosphatase 171 H Total Protein 6.1 L Albumin 3.1 L Microbiology Microbiology Results: Microbiology 08/06/24 15:36 Blood Culture - Preliminary Blood - Venous No growth after 48 hours. 08/06/24 15:36 Blood Culture - Preliminary Blood - Venous No growth after 48 hours. Procedures Date of Service Date of Service: 08/09/24 Progress Note: A&P Assessment and plan (1) Choledocholithiasis: Status: Acute (2) Acute cholecystitis: Status: Acute (3) S/P laparoscopic cholecystectomy: Status: Acute Plan Admitted for choledocolithiasis, cholecystitis. Underwent ERCP on 08/07/24. Now POD #1 s/p lap alex. Found to have markedly phlegmonous thickened, inflamed necrotic gallbladder with multiple small gallstones with dense omental adhesions to the gallbladder. Overall doing well post op. Agitated and disorientated overnight but improved this morning. VSS. Abd exam benign with clean incisions and appropriate post op tenderness. CYDNEY drain output nonbilious. Will increase oxycodone to 10mg and make tylenol ATC. If comfortable on oral analgesics and able to wean O2, stable for dc to home later today. Will dc CYDNEY drain prior. Encouraged OOB/ambulation and incentive spirometery. Patient comfortable with plan. Dc IVF. Time Spent With Patient Time: Total time managing care of this patient today ____ minutes. Quality Stroke Does the patient have a stroke diagnosis?: No VTE Prior VTE?: No VTE Risk Level:: Surgical - low VTE Device Contraindication: N/A - Device Ordered VTE Drug Contraindication: N/A - Med Ordered
[2024-08-09] MEDS: Divalproex Sodium Sprinkles 125 MG CAP.DR.SPR PO (08:18)
[2024-08-09] MEDS: oxyCODONE HCl Immed Release 5 MG TABLET 10 MG PO ×2 (08:18→12:11)
[2024-08-09] MEDS: Acetaminophen 325 MG TABLET 650 MG PO (08:18)
[2024-08-09] MEDS: Gabapentin 600 MG TABLET PO ×2 (08:19→12:11)
[2024-08-09] MEDS: QUEtiapine Fumarate 50 MG TABLET PO (08:19)
[2024-08-09] MEDS: DULoxetine HCl 60 MG CAPSULE.DR PO (08:19)
--- NOTE | 2024-08-09 10:25 | MHC.CM.PN ---
Addendum entered by Maria A Betancourt RN 08/09/24 14:28: Patient medically cleared for dc home self care. Private transport. Addendum entered by Maria A Betancourt RN 08/09/24 10:51: PT rec home w/ family support. Addendum entered by Maria A Betancourt RN 08/09/24 10:25: PT eval pending. Original Note: Patient not medically cleared for dc at this time. CM will continue to follow.
--- NOTE | 2024-08-09 11:29 | P.PNGI_ITS ---
Subjective Subjective Date of Service: 08/09/24 Interval History: feels good she expresses concerns about her pancreas Critical Care Time (minutes): 1 Physical Exam 2 Vital Signs: Vital Signs: Last Vital Signs Temp 97.1 F 08/09/24 08:00 Pulse 88 08/09/24 08:00 Resp 18 08/09/24 08:00 BP 104/56 L 08/09/24 08:00 Pulse Ox 91 L 08/09/24 10:49 O2 Del Method Room Air 08/09/24 10:47 O2 Flow Rate 1 08/09/24 10:19 BMI result Body Mass Index 31.8 Const: General: cooperative GI: Other: abdomen is soft and nontender Objective Data Labs 08/07/24 04:42 08/07/24 04:42 Labs: Laboratory Results - last 24 hr 08/09/24 06:38 Hold Purple Top SEE NOTE Total Bilirubin 0.2 Direct Bilirubin < 0.2 AST 67 H ALT 104 H Alkaline Phosphatase 171 H Total Protein 6.1 L Albumin 3.1 L Microbiology Microbiology Results: Microbiology 08/06/24 15:36 Blood - Venous Blood Culture - Preliminary No growth after 48 hours. 08/06/24 15:36 Blood - Venous Blood Culture - Preliminary No growth after 48 hours. Procedures Date of Service Date of Service: 08/09/24 Progress Note: A&P Assessment and plan (1) Choledocholithiasis: Status: Acute Assessment and Plan: doing well I have asked her to contact my office for outpatient followup. Time Spent With Patient Time: Total time managing care of this patient today ____ minutes. Quality Stroke Does the patient have a stroke diagnosis?: No VTE Prior VTE?: No VTE Risk Level:: Surgical - low VTE Device Contraindication: N/A - Device Ordered VTE Drug Contraindication: N/A - Med Ordered
--- NOTE | 2024-08-09 14:07 | P.DS_ITS ---
DS: Providers Provider Date of Service: 08/09/24 Date of admission: 08/06/24 17:50 Date of discharge: 08/09/24 Primary care physician: João Reyes MD Attending physician on admission: Nancy Anderson DS: Diagnosis Discharge Diagnosis (1) Choledocholithiasis: Status: Resolved DS: Summary Hospital Course Hospital Course: HPI AT ADMISSION: Gabby Helms is a 64 year old female who has not been feeling well for the last 6 weeks and has been calling her PCP and discussing things with him. She has been complaining of abdominal discomfort and nausea. Today she vomited several times. Her PCP told her to come to the hospital and put in orders for blood work as well as right upper quadrant ultrasound. She says that she has had a history of gallstones in the past but did not really have symptoms from this. Doing the ultrasound it was noted that her gallbladder wall was thickened that she had multiple gallstones that the area was tender with the procedure consistent with a Pool sign and that her common bile duct was 7 mm. Blood work revealed elevated AST ALT and alk-phos but normal bilirubin. She had normal white count with a normal differential. ESR and CRP were elevated. Patient had MRCP to rule out common bile duct stone and this study revealed thickened gallbladder wall up to 1 cm common bile duct 1 cm distal common bile duct with findings maybe consistent with stone debris distally. HOSPITAL COURSE: The patient was admitted to the surgical service for further treatment of the acute cholecystitis, choledocolithiasis. She was started on IV zosyn. Gastroenterology consult was obtained. On 08/07/24, ERCP with sphincterotomy and stone extraction was performed by Dr. Bright. Her pain improved and LFTs downtrended. It was recommended to proceed with laparoscopic cholecystectomy, possible open to prevent recurrence. She agreed and was added onto the schedule. On 08/08/24, a laparoscopic cholecystectomy was performed by Dr. Oneill without complication. Found to have markedly phlegmonous thickened, inflamed necrotic gallbladder with multiple small gallstones with dense omental adhesions to the gallbladder. CYDNEY drain was placed intraoperatively. The patient tolerated the procedure well. She had an uncomplicated recovery course. On POD #1, she felt well and was tolerating a solid diet without nausea or vomiting, had good pain control and was ambulating without difficulty. She was hemodynamically stable. Her abdomen was benign with appropriate post op tenderness and clean and intact dressings. Her CYDNEY drain had serosanguineous output and was removed. She felt ready for discharge. She was discharged to home on 08/09/24 in stable condition. She is to follow up in the office in 1 week. Status at Discharge Overall status at discharge: patient is progressing back to baseline Time Attestation Discharge Coordination Time (in mins): 30 Quality: Safe Use of Opioids Does Pt have an Active Cancer Diagnosis on the Problem List?: No Quality: Stroke Does the patient have a stroke diagnosis?: No Physical Exam Vital Signs: Vital Signs: Last Vital Signs Temp 98.4 F 08/09/24 11:44 Pulse 99 08/09/24 11:44 Resp 18 08/09/24 11:44 BP 126/56 L 08/09/24 11:44 Pulse Ox 92 08/09/24 11:44 O2 Del Method Room Air 08/09/24 11:44 O2 Flow Rate 1 08/09/24 10:19 BMI result Body Mass Index 31.8 Const: General: comfortable, no acute distress and alert Resp: Effort & Inspection: normal respiratory effort GI: Other: CYDNEY drain serosanguineous in nature, removed Inspection: No distended and Yes incision (dressings intact ) Palpation (GI): Soft to palpation and no guarding Skin: General skin exam: no jaundice DS: Data Data Completed and Pending Completed studies during hospitalization [Text1]: 08/08/24 13:29 Surgical [PTH] Routine Gallbladder, cholecystectomy: Acute and chronic cholecystitis with intestinal metaplasia, ulceration and necrosis; negative for dysplasia; cholelithiasis Procedures Extirpation of Matter from Common Bile Duct, Via Natural or Artificial Opening Endoscopic (08/06/24) Resection of Gallbladder, Percutaneous Endoscopic Approach (08/06/24) Discharge Plan Discharge Anticipated Discharge Date/Time: 08/10/24 09:33 Patient Disposition: Home, Self-Care Discharge Diagnosis: acute cholecystitis, choledocolithiasis, s/p lap alex Referrals: João Reyes MD [Primary Care Provider, Internal Medicine] - 1 Week Ian Oneill MD [Physician, General Surgery] - 1 Week Discharge Medications: Continued (DME) [facility] B[facility] with Side Rails See Rx Instructions .Route .MEDSUPPLY Qty: 1 0RF Rx Instructions: As directed divalproex [Depakote] 500 mg tablet,delayed release (DR/EC) 500 mg PO BEDTIME 90 Days Qty: 90 1RF dicyclomine 20 mg tablet 20 mg PO TID PRN (Reason: abdominal cramping) Qty: 30 0RF duloxetine 60 mg capsule,delayed release(DR/EC) 60 mg PO BID 30 Days Qty: 60 5RF quetiapine 50 mg tablet 50 mg PO DAILY pantoprazole 40 mg tablet,delayed release (DR/EC) 40 mg PO DAILY@0630 divalproex [Depakote] 125 mg tablet,delayed release (DR/EC) 125 mg PO DAILY albuterol sulfate [Ventolin HFA] 90 mcg/actuation HFA aerosol inhaler 2 puff inhalation Q6H PRN (Reason: shortness of breath or wheezing) 30 Days Qty: 8.5 3RF No Action furosemide 40 mg tablet 40 mg PO DAILY Qty: 90 0RF quetiapine 50 mg tablet See Rx Instructions PO .COMPLEX 90 Days Qty: 270 0RF Rx Instructions: Take 1 tablet daily in AM and 2 tablets daily at bedtime orally; tramadol 50 mg tablet 50 mg PO BID-TID PRN (Reason: pain) Qty: 60 0RF lorazepam 1 mg tablet 1 mg PO BID PRN (Reason: anxiety) 30 Days Qty: 60 0RF gabapentin 600 mg tablet 600 mg PO QID 90 Days Qty: 360 0RF oxycodone 5 mg tablet 5 mg PO Q4-6H PRN (Reason: pain (scale score 7-10)) Qty: 24 0RF Rx Instructions: Partial Fill upon patient request. Discharge Orders: Discharge Order (Routine); Ordered 08/09/24 Ordered By: Amena Plascencia Diet: Advance to usual diet Activity on Discharge: No heavy lifting Stand Alone Forms: Patient Portal Discharge page Print Language: Japanese Activity Restrictions/Additional Instructions: Apply an ice pack for short intervals (20 minutes on, followed by at least 20 minutes off) for the first 2 days. Do not apply heat. Do not use creams, lotions, or topical antibiotics. These can cause infection or allergic reaction. Ok to shower 48 hours after your surgery. Remove tape dressings tomorrow. You have steri strips (small white cloth strips) covering your incision- these will fall off ~1 week. Keep the old drain site covered with a dry dressing until it stops draining. It may drain clear/reddish tinged fluid and this is normal and will stop in a few days. Follow up in office with Dr. Oneill in 1 week. ([phone]) No heavy lifting (>10lbs) or strenuous activity! Call Your Doctor If: -Your temperature exceeds 101.5? F -You experience excessive pain or swelling -You have an unexpected reaction to medication -You have excessive bleeding -You experience continued vomiting/nausea -Your incision begins to separate -Your incision shows signs of infection such as increased redness, swelling, excessive pain, drainage (light blood or clear fluid is normal) or heat Care Plan Goals: Return to baseline health and resume normal activities following recovery period. Health Concerns: acute cholecystitis, choledocolithiasis Plan of Treatment: s/p ERCP s/p laparoscopic cholecystectomy f/u with Dr. Oneill in office and PCP Assessment: Doing well post op. Discharge Date/Time: 08/09/24 14:41
== END 2024-08-09 14:41 | disposition home or self-care (01) | DRG 419 ==
LOC: HO.ED 17:08 → HO.EDOVER 18:06 → HO.S3 08-07 07:11
PROVIDERS: Internal Medicine Gastroenterology; Physician Assistant Medical; Physician Assistant Surgical; Surgery; Admitting Provider Surgery; Emergency Provider Emergency Medicine Emergency Medical Services; PCP Internal Medicine; Visit Provider Surgery
PROC: 0FC98ZZ Extirpation of Matter from Common Bile Duct, Via Natural or Artificial Opening Endoscopic (ICD-10-PCS; CPT 43260; principal; 2024-08-07 15:30)
PROC: 0FT44ZZ Resection of Gallbladder, Percutaneous Endoscopic Approach (ICD-10-PCS; CPT 47562; principal; 2024-08-08 12:30)
DX: K80.42 Calculus of bile duct with acute cholecystitis without obstruction (principal); Z87.891 Personal history of nicotine dependence; Z79.899 Other long term (current) drug therapy
CPT/HCPCS: 36415; 74181; 80053; 80076; 83605; 85025; 86850; 86900; 86901; 87040; 88304; 93005; 97162; 99285; J0131; J0330; J1100; J1171; J1596; J1610; J2003; J2250; J2270; J2405; J2543; J2704; J2795; J3010; J7120; Q9967

== ENCOUNTER → 2024-08-06 15:27 | Outpatient (BNV) | payer MEDICARE, SELFPAY | PROVIDERS: Admitting Provider Surgery; Emergency Provider Emergency Medicine Emergency Medical Services; PCP Internal Medicine; Visit Provider Internal Medicine Cardiovascular Disease | DX: R94.31 Abnormal electrocardiogram [ECG] [EKG] (principal); Z01.810 Encounter for preprocedural cardiovascular examination | CPT/HCPCS: 93010 ==

== ENCOUNTER → 2024-08-06 17:50 | Outpatient (BNV) | payer MEDICARE, SELFPAY | PROVIDERS: Admitting Provider Surgery; Emergency Provider Emergency Medicine Emergency Medical Services; PCP Internal Medicine; Visit Provider Surgery | DX: K81.0 Acute cholecystitis (principal); R74.8 Abnormal levels of other serum enzymes | CPT/HCPCS: 99223; 99232 ==

== ENCOUNTER 2024-08-13 14:54 | Outpatient (AMB) | payer MEDICARE, SELFPAY ==
[2024-08-13 15:22] VITALS: BP 122/84; PULSE 100; O2SAT 94; BMI 34.8
--- NOTE | 2024-08-13 15:22 | A.OFFPC_ITS ---
Vital Signs 08/13/24 15:22 Height 5 ft 6 in Weight 215 lb 8 oz BMI 34.8 BP 122/84 Blood Pressure Location Lt brachial Position Sitting Pulse 100 Pulse Source Pulse Oximeter Pulse Oximetry (%) 94 Oxygen Delivery Method Room Air Intake [place] [facility] [place] [facility] Appellate Law Clerk Required: No Accompanied by: Self / Same As Patient Allergies miconazole [From Remedy Antifungal] Allergy (Severe, Verified 08/13/24 15:57) skin in mouth peels clarithromycin [From Biaxin] Allergy (Unknown, Verified 08/13/24 15:57) Unknown codeine Allergy (Unknown, Verified 08/13/24 15:57) Unknown terbinafine [From Lamisil] Allergy (Unknown, Verified 08/13/24 15:57) Unknown trazodone Allergy (Unknown, Verified 08/13/24 15:57) unknown pregabalin [From Lyrica] Adverse Reaction (Intermediate, Verified 08/13/24 15:57) Depression - crying lotrimin spray Allergy (Mild, Uncoded 08/13/24 15:57) skin inflammation Medication List - Last Reconciled 08/13/24 by João Reyes MD albuterol sulfate 90 mcg/actuation (Ventolin HFA) 2 puffs inhalation Q6H PRN 30 days dicyclomine 20 mg PO TID PRN divalproex (Depakote) 125 mg PO DAILY divalproex (Depakote) 500 mg PO BEDTIME 90 days duloxetine 60 mg PO BID 30 days gabapentin 600 mg PO QID 90 days lorazepam 1 mg PO BID PRN 30 days oxycodone 5 mg PO Q4H PRN pantoprazole 40 mg PO DAILY@0630 quetiapine 50 mg PO DAILY quetiapine 100 mg PO BEDTIME [[facility] BED with Side Rails As directed] tramadol 50 mg PO BID-TID PRN Tobacco use date assessed: 08/13/24 Fall risk assessment: 2 + Falls in past year Last assessed Fall Risk: 08/13/24 Dental Screening Dental Screen Date: 08/13/24 Did you have a dental visit in the last 12 months?: Yes Did you have a dental problem in the last 6 months where you did not have access to dental care?: No Was dental information given to patient?: Patient has dentist [place] [facility] HPI Details Patient comes in today for her TCM visit She was admitted [place] [facility] [place] presenting to the ER last week with increasing epigastric and right upper quadrant pain and discomfort She was initially sent for abdominal ultrasound and when imaging studies confirmed findings consistent with acute cholecystitis, she was sent directly to the emergency room for further management She was also noted to have significantly elevated LFTs on workups She first underwent ERCP for removal of gallstones and subsequently underwent laparoscopic cholecystectomy the next day She was discharged from the hospital about 4 days ago and states that she is feeling a lot better currently since her surgery She was discharged home with prescriptions for some Oxycodone 5 mg for pain and she is requesting for a prescription for a few more days of this as she is presently still experience frequent pain over right upper quadrant area, especially with movement and when she coughs She also apparently developed increased swelling of both her legs over the weekend and reached out to the on-call doctor, who advised her to increase her Furosemide up to 40 mg QD - patient states that this seems to have helped with her lower extremity swelling somewhat and is requesting for a refill for Furosemide 40 mg as well She presently denies any fever, headaches or dizziness Denies any chest pains, no increased shortness of breath No nausea/vomiting and no change in bowel habits noted TCM TCM Information Date of Discharge 08/09/24 Discharged From [facility] Interactive Contact Date (Reference documentation from this date) 08/12/24 [facility]LY [facility] Medical History (Updated 08/14/24 @ 05:17 by João Reyes MD) Fever Cholelithiasis Suicide attempt by drug overdose Obesity (BMI 30-39.9) Bipolar disorder Anxiety Insomnia Constipation Chronic kidney disease (CKD), stage II (mild) Vitamin D deficiency Goiter Lichen planus Elevated liver enzymes Impaired fasting glucose Pure hypercholesterolemia Lumbar degenerative disc disease Surgical History (Updated 08/14/24 @ 04:54 by João Reyes MD) Hx laparoscopic cholecystectomy History of ERCP History of laminectomy (~01/2011) History of spinal fusion (~01/2011) History of hysterectomy (~1993) Family History Father Scoliosis Mother Hypertension Cardiovascular disease Asthma Sister Asthma Arthritis Other Substance abuse Social History (Reviewed 08/13/24 @ 15:25 by OLIVE Marino Household Members: Spouse Housing: House Do you presently have visiting nurse or other home services: No Alcohol intake: current Alcohol intake frequency: holidays/special occasions only Patient Tobacco Use Status: Former Tobacco user e-Cigarette/Vaping Use: Never Used Second Hand Smoke Exposure: No Substance Use Type: Marijuana service: No Current occupational status: disabled Cognitive needs: No Hearing needs: No Vision needs: Yes Questionnaire PHQ-9 Over the last 2 weeks, how often have you been bothered by any of the following problems? 1. Little interest or pleasure in doing things: several days 2. Feeling down, depressed, or hopeless: several days 3. Trouble falling or staying asleep, or sleeping too much: several days 4. Feeling tired or having little energy: several days 5. Poor appetite or overeating: more than half the days 6. Feeling bad about yourself - or that you are a failure or have let yourself or your family down: not at all 7. Trouble concentrating on things, such as reading the newspaper or watching television: nearly every day 8. Moving or speaking so slowly that other people could have noticed. Or the opposite - being so fidgety or restless that you have been moving around a lot more than usual: more than half the days 9. Thoughts that you would be better off or of hurting yourself in some way: several days Total score: 12 Depression Screening Interpretation: Positive Depression Screening Follow-up: Existing condition and In treatment Depression Screening Done: Yes [id number] - PHQ-9 Billing: Yes Source: Developed by Drs. Robert Nina, Airam Lovett, Tay Jha and colleagues, with an educational cielo from [employer]. Thrive Questionnaire Date Thrive assessed: 08/13/24 I am a: Patient What is your living situation today?: I have a steady place to live Within the past 12 months, did the food you bought not last and you didn't have the money to get more?: Never true Within the past 12 months, did you worry whether your food would run out before you got money to buy more?: Never true Do you have trouble paying for medicines?: No Do you have trouble getting transportation to medical appointments?: No Do you have trouble paying your heating and electricity bill?: No Do you have trouble taking care of your child, family member or friend?: No Do you have trouble with day-to-day activities such as bathing, preparing meals, shopping, managing finances, etc.?: No Are you currently unemployed and looking for a job?: No Are you interested in more education?: No Please select the resources that you would like help with: None Currently or been in a relationship where the following occur: No concerns reported THRIVE Score: 0 AUDIT C Alcohol Use Questionnaire (AUDIT-C) 1. How often do you have a drink containing alcohol?: Never 3. How often do you have six or more drinks on one occasion?: Never Total Score: 0 Score Reviewed/Action Taken: Yes LIYA-7 AMB Questionnaire LIYA-7 Date LIYA - 7 assessed: 08/13/24 Feeling nervous, anxious, or on edge: 0 = Not at all Not being able to stop or control worryin = Not at all Worrying too much about different things: 0 = Not at all Trouble relaxin = Not at all Being so restless that it is hard to sit still: 0 = Not at all Becoming easily annoyed or irritable: 0 = Not at all Feeling afraid as if something awful might happen: 0 = Not at all Total LIYA-7 score (0-4 normal; 5-9 mild; 10-14 moderate; 15-21 severe): 0 Source: Developed by Drs. Robert Nina, Airam Lovtet, Tay Jha and colleagues, with an educational cielo from [employer]. Review of Systems Const Denies chills, Denies fever(s) and Denies headache(s) ENT Denies dysphagia, Denies dizziness, Denies otalgia, Denies headache(s), Reports neck pain (chronic), Denies odynophagia and Denies sore throat Card Denies chest pain, Denies palpitations and Reports dyspnea on exertion (mild) Resp Denies chest congestion, Denies cough and Reports dyspnea on exertion (mild) GI Reports abdominal pain ((+) soreness/tenderness over RUQ area due to recent surgery), Denies dysphagia, Denies heartburn, Reports diarrhea (intermittent - has IBS), Denies nausea, Denies odynophagia and Denies vomiting Reports urinary incontinence (see HPI) Musc Reports back pain (over the lower back - chronic) and Reports neck pain (chronic) Skin/Breast Denies rash Neuro Denies dizziness and Denies headache(s) Psych Reports anxiety, Reports depression and Denies suicidal ideation Endo Denies palpitations Rajinder/Lymph Denies easy bruising Physical exam (Primary Care) Vital Signs: Last Vital Signs Pulse 100 08/13/24 15:22 BP 122/84 08/13/24 15:22 Pulse Ox 94 08/13/24 15:22 Oxygen Delivery Method Room Air 08/13/24 15:22 BMI result Body Mass Index 34.8 Tobacco/Smoking Status: Tobacco use Status Tobacco use date assessed 08/13/24 08/13/24 15:31 Patient Tobacco Use Status Former Tobacco user 08/13/24 15:31 e-Cigarette/Vaping Use Never Used 08/13/24 15:31 PHQ-9: PHQ-9 Score PHQ-9: Total score 12 08/13/24 16:21 Depression Screening Interpretation: Positive Depression Screening Follow-up: Existing condition and In treatment Thrive Assessment: Date of Thrive Assessment Date Thrive assessed 08/13/24 08/13/24 15:31 Currently or been in a relationship where the following occur: No concerns reported Const General: no acute distress and alert HENMT Throat: Yes posterior oropharynx normal and Yes tonsils normal Neck Neck: Yes supple and No lymphadenopathy Thyroid: Thyroid normal Resp Auscultation: clear to auscultation bilaterally, no rales and no wheezes Cardio Rate: regular rate Rhythm: regular rhythm Heart sounds: no murmurs GI Palpation (GI): Soft to palpation, Tenderness to palpation present (GI) (mild) in the RUQ, no guarding and not rigid Auscultation: normal bowel sounds General: Yes no CVA tenderness Back/Spine/Pelvis Back: no CVA tenderness Cervical Spine: Cervical spine tenderness Thoracic/Lumbar Spine: thoracic spinal tenderness and lumbar spinal tenderness Sacroiliac joints: bilaterally tender to palpation Skin Rashes: no rashes Extrem Other: (+) onycholysis of toenails on both feet; (+) very large and tender (on palpation) corns and calluses on the soles of both feet; (+) 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 BASED ON PREVIOUS EXAM - exam NOT done or repeated today General: No clubbing, No cyanosis and Yes pedal edema (2 + bilaterally) Coding Level of Care Code TCM Mod MDM <= 7 Days Diagnoses Acute cholecystitis K81.0 Choledocholithiasis K80.50 Bilateral lower extremity edema R60.0 Additional Codes PHQ-9 - 51601 - PHQ-9 Billing: Yes ([id number]) Assessment & Plan Assessment & Plan (1) Acute cholecystitis: Code(s): K81.0 - Acute cholecystitis Plan: S/P laparoscopic cholecystectomy on 08/08/2024 Continue Oxycodone 5 mg Q 6 hours PRN for pain - will send in Rx refill for a few more days, after which will have patient gradually come off pain med Patient reports (+) significant improvement of her abdominal symptoms following her surgery last week and currently only has residual pain from her surgical procedure (2) Choledocholithiasis: Code(s): K80.50 - Calculus of bile duct without cholangitis or cholecystitis without obstruction Plan: S/P ERCP with removal of gallstones on 08/07/2024 prior to her laparoscopic cholecystectomy (3) Bilateral lower extremity edema: Code(s): R60.0 - Localized edema Category: Medical Plan: Continue Furosemide 40 mg QD for now - Rx refilled Will send patient to the lab [email or web address] for further evaluation and to reassess her renal function and BNP, in light of her recent increasing edema Will also send her for chest x-rays for further evaluation Plan Follow up in 6 months Orders: Orders B Type Natriuretic Peptide 08/13/24 R60.9 - Edema, unspecified XR chest 2V 08/13/24 J98.8 - Other specified respiratory disorders Comprehensive Met. Panel 08/13/24 R60.9 - Edema, unspecified Medications: New furosemide 40 mg PO DAILY 30 days 30 tabs 1RF edema Changed From oxycodone Partial Fill upon patient request. 5 mg PO Q4H PRN 24 tabs 0RF pain (scale score 7-10) To oxycodone Partial Fill upon patient request. 5 mg PO Q4-6H PRN 24 tabs 0RF pain (scale score 7-10)
== END 2024-08-13 16:14 | disposition home or self-care (01) ==
LOC: HO.HMCH 14:55
PROVIDERS: PCP Internal Medicine; Visit Provider Internal Medicine
DX: K81.0 Acute cholecystitis (principal); R60.0 Localized edema

== ENCOUNTER 2024-08-13 14:54 | Outpatient (REF) | payer MEDICARE, SELFPAY ==
--- NOTE | ~2024-08-13 | XR_ITS ---
EXAMINATION: XR CHEST CLINICAL INFORMATION: J98.8 - Other specified respiratory disorders COMPARISON: None available. TECHNIQUE: 2 views of the chest were obtained. FINDINGS: Elevated right hemidiaphragm. No consolidation, pleural effusion or pneumothorax. Cardiomediastinal silhouette size is normal. Multilevel thoracic and upper lumbar spondylosis. Degenerative changes in the acromioclavicular joints. XR/XR chest 2V IMPRESSION: No acute airspace disease. Elevated right hemidiaphragm. Electronically signed by: Sixto Rose MD 08/14/2024 01:26 PM EDT
[2024-08-13 17:39] LABS: Alanine Aminotransferase 33 U/L (0-31); Albumin Level 3.4 g/dL (3.5-5.0); Alkaline Phosphatase 158 U/L (39-117); Anion Gap 11 (12-20); Aspartate Amino Transferase 18 U/L (5-31); Bilirubin Total 0.2 mg/dL (0.0-1.0); Blood Urea Nitrogen 6 mg/dL (9-16); Carbon Dioxide 32 mmol/L (22-29); Chloride 101 mmol/L (96-108); Estimated Glomerular Filt Rate > 60; Glucose Random 96 mg/dL (60-115); Potassium 4.3 mmol/L (3.3-5.1); Sodium 140 mmol/L (135-145); Total Protein 6.4 g/dL (6.5-8.0)
[2024-08-13 17:41] LABS: B Type Natriuretic Peptide 11 pg/mL (<100)
== END 2024-08-13 14:55 | disposition home or self-care (01) ==
LOC: HO.XRAY 14:54
PROVIDERS: Absent Provider Physician Assistant Medical; PCP Internal Medicine; Visit Provider Internal Medicine
DX: R60.9 Edema, unspecified (principal); J98.8 Other specified respiratory disorders
CPT/HCPCS: 36415; 71046; 80053; 83880; 96127; 99495

== ENCOUNTER → 2024-08-13 16:43 | Outpatient (BNV) | payer MEDICARE, SELFPAY | PROVIDERS: Absent Provider Physician Assistant Medical; PCP Internal Medicine; Visit Provider Radiology Diagnostic Radiology | DX: J98.8 Other specified respiratory disorders (principal) | CPT/HCPCS: 71046 ==

== ENCOUNTER 2025-03-12 14:45 | Outpatient (AMB) | payer MEDICARE, SELFPAY ==
[2025-03-12 14:49] VITALS: BP 138/70; PULSE 86; RESP 18; TEMP 36.3; O2SAT 94; BMI 37.6
--- NOTE | 2025-03-12 14:49 | MHC.PC.OV ---
Vital Signs 03/12/25 14:49 Height 5 ft 6 in Weight 233 lb BMI 37.6 BP 138/70 Blood Pressure Location Lt brachial Position Sitting Respiration 18 Pulse 86 Pulse Source Pulse Oximeter Temp 97.3 F Temp Source Temporal Artery Scan Pulse Oximetry (%) 94 Oxygen Delivery Method Room Air Intake Visit Reasons: Logan LE edema Psychological Operations Specialist Required: No Accompanied by: Allergies miconazole (From Remedy Antifungal) Allergy (Severe, Verified 03/12/25 14:51) skin in mouth peels clarithromycin (From Biaxin) Allergy (Unknown, Verified 03/12/25 14:51) Unknown codeine Allergy (Unknown, Verified 03/12/25 14:51) Unknown terbinafine (From Lamisil) Allergy (Unknown, Verified 03/12/25 14:51) Unknown trazodone Allergy (Unknown, Verified 03/12/25 14:51) unknown pregabalin (From Lyrica) Adverse Reaction (Intermediate, Verified 03/12/25 14:51) Depression - crying lotrimin spray Allergy (Mild, Uncoded 08/13/24 15:57) skin inflammation Medication List - Last Reconciled 03/12/25 by Andrew Garcia MD albuterol sulfate 90 mcg/actuation (Ventolin HFA) 2 puffs inhalation Q6H PRN 30 days dicyclomine 20 mg PO TID PRN divalproex (Depakote) 500 mg PO BEDTIME 90 days divalproex (Depakote) 125 mg PO QAM 30 days duloxetine 60 mg PO BID furosemide 40 mg PO DAILY gabapentin 600 mg PO QID 90 days lorazepam 1 mg PO TID PRN 30 days oxycodone 5 mg PO Q4-6H PRN pantoprazole 40 mg PO DAILY@0630 quetiapine 50 mg PO DAILY quetiapine Take 1 tablet daily in AM and 2 tablets daily at bedtime orally; 90 days [[facility] BED with Side Rails As directed] tramadol 50 mg PO BID-TID PRN Tobacco use date assessed: 03/12/25 Fall risk assessment: 2 + Falls in past year Last assessed Fall Risk: 03/12/25 Dental Screening Dental Screen Date: 03/12/25 Did you have a dental visit in the last 12 months?: Yes Did you have a dental problem in the last 6 months where you did not have access to dental care?: No Was dental information given to patient?: Patient has dentist HPI HPI Comments History of Present Illness Details The patient is a 65-year-old female presenting with edema in the lower extremities and dyspnea. The edema in the lower extremities has been present for several months and has recently worsened, causing significant difficulty in ambulation, particularly when climbing stairs. The patient reports a history of weight gain, now weighing over 230 pounds, which she attributes to fluid retention. [facility] Medical History Fever Cholelithiasis Suicide attempt by drug overdose Obesity (BMI 30-39.9) Bipolar disorder Anxiety Insomnia Constipation Chronic kidney disease (CKD), stage II (mild) Vitamin D deficiency Goiter Lichen planus Elevated liver enzymes Impaired fasting glucose Pure hypercholesterolemia Lumbar degenerative disc disease Surgical History Hx laparoscopic cholecystectomy History of ERCP History of laminectomy (~01/2011) History of spinal fusion (~01/2011) History of hysterectomy (~1993) Family History Father Scoliosis Mother Hypertension Cardiovascular disease Asthma Sister Asthma Arthritis Other Substance abuse Social History Household Members: Spouse Housing: House Do you presently have visiting nurse or other home services: No Alcohol intake: current Alcohol intake frequency: holidays/special occasions only Patient Tobacco Use Status: Former Tobacco user e-Cigarette/Vaping Use: Never Used Second Hand Smoke Exposure: No Substance Use Type: Marijuana service: No Current occupational status: disabled Cognitive needs: No Hearing needs: No Vision needs: Yes Questionnaire Thrive Questionnaire Date Thrive assessed: 08/13/24 LIYA-7 AMB Questionnaire LIYA-7 Date LIYA - 7 assessed: 08/13/24 Source: Developed by Drs. Robert Nina, Airam Lovett, Tay Jha and colleagues, with an educational cielo from [employer]. Review of Systems Const Details: Positives besides what was mentioned in HPI are in BOLD Constitutional: No Weight Change, No Fever, No Chills, No Night Sweats, No Fatigue, No Malaise ENT/Mouth: No Hearing Changes, No Ear Pain, No Nasal Congestion, No Sinus Pain, No Hoarseness, No sore throat, No Rhinorrhea, No Swallowing Difficulty Eyes: No Eye Pain, No Swelling, No Redness, No Foreign Body, No Discharge, No Vision Changes Cardiovascular: No Chest Pain, No SOB, No PND, No Dyspnea on Exertion, No Orthopnea, No Claudication, No Edema, No Palpitations Respiratory: No Cough, No Sputum, No Wheezing, No Smoke Exposure, No Dyspnea Gastrointestinal: No Nausea, No Vomiting, No Diarrhea, No Constipation, No Pain, No Heartburn, No Anorexia, No Dysphagia, No Hematochezia, No Melena, No Flatulence, No Jaundice Genitourinary: No Dysmenorrhea, No DUB, No Dyspareunia, No Dysuria, No Urinary Frequency, No Hematuria, No Urinary Incontinence, No Urgency, No Flank Pain, No Urinary Flow Changes, No Hesitancy Musculoskeletal: No Arthralgias, No Myalgias, No Joint Swelling, No Joint Stiffness, No Back Pain, No Neck Pain, No Injury History Skin: No Skin Lesions, No Pruritis, No Hair Changes, No Breast/Skin Changes, No Nipple Discharge Neuro: No Weakness, No Numbness, No Paresthesias, No Loss of Consciousness, No Syncope, No Dizziness, No Headache, No Coordination Changes, No Recent Falls Psych: No Anxiety/Panic, No Depression, No Insomnia, No Personality Changes, No Delusions, No Rumination, No SI/HI/AH/VH, No Social Issues, No Memory Changes, No Violence/Abuse Hx., No Eating Concerns Heme/Lymph: No Bruising, No Bleeding, No Transfusions History, No Lymphadenopathy Endocrine: No Polyuria, No Polydipsia, No Temperature Intolerance Physical exam (Primary Care) Vital Signs: Last Vital Signs Temp 97.3 F 03/12/25 14:49 Pulse 86 03/12/25 14:49 Resp 18 03/12/25 14:49 BP 138/70 03/12/25 14:49 Pulse Ox 94 03/12/25 14:49 Oxygen Delivery Method Room Air 03/12/25 14:49 BMI result Body Mass Index 37.6 Tobacco/Smoking Status: Tobacco use Status Tobacco use date assessed 03/12/25 03/12/25 14:57 Patient Tobacco Use Status Former Tobacco user 03/12/25 14:57 e-Cigarette/Vaping Use Never Used 03/12/25 14:57 Thrive Assessment: Date of Thrive Assessment Date Thrive assessed 08/13/24 03/12/25 14:57 Const Other: Pertinent findings are in BOLD GENERAL APPEARANCE NAD, activity normal for age, well developed/ well nourished, no cyanosis, pallor, or diaphoresis. EYES lids/conjunctiva normal. EARS/NOSE/THROAT Mucous membranes moist, nares normal, lips/teeth normal uvula midline without oral pharyngeal erythema, exudate or swelling TMs normal bilaterally. No lymphangitis/lymphedema. HEAD/NECK normocephalic atraumatic, no facial trauma, neck is supple. RESPIRATORY respiratory effort normal, speaks in full sentences, no tripod position, no accessory muscle use. Lungs clear to auscultation without rhonchi, wheezes, rales CARDIAC Regular rate and rhythm, no edema. ABDOMINAL Soft, ND/NT. No evidence of fluid wave. No pulsatile masses on exam, rebound tenderness, Pool sign or pain over Mcburney's point. MUSCLES/EXTREMITIES No abnormal range of motion. +2 RLE, +1 LLE SKIN Warm, pink and dry. No rashes, dermatoses, petechiae or lesions. NEUROLOGICAL Speech is clear and appropriate. Normal level of consciousness. Gait and coordination are normal. 5/5 strength in all extremities. PSYCH Normal mood and affect. Judgement/competence is appropriate Coding Level of Care Code Est Pt Level 3 (01604) Diagnoses Localized edema R60.0 Edema type: localized Time Spent (min) 20 Assessment & Plan Assessment & Plan (1) Edema: Code(s): R60.9 - Edema, unspecified Category: Medical Qualifiers: Edema type: localized Qualified Code(s): R60.0 - Localized edema Plan: Patient was prescribed Lasix in the past but she never took it because she is worried about having kidney disease. Reassured patient that she does not have kidney disease. Advised patient to take lasix as prescribed. Advised that heart echo might be indicated due to her shortness of breath and LE edema. Patient deferred echo for now. Plan I discussed with the patient the plan to manage her edema by LAsix, and advised her to elevate her legs to reduce swelling. We also talked about monitoring her dyspnea in conjunction with the edema management. I recommended that she follow up with Dr. Reyes in April for further evaluation and management. Medications: Refilled tramadol 50 mg PO BID-TID PRN 60 tabs 0RF pain
--- OUTSIDE RECORDS SUMMARY | 2025-03-12 20:55 | XMS_ITS | Clinical Summary ---
Author Organization [facility] Address [address] [facility] [address] [place] [address] Care Team Providers Care Curator Name Role Phone João Reyes MD Primary Care Provider [phone] Allergies Active Allergy Reactions Criticality Noted Date [...] FIT DNA/Cologuard 1960 FIT 1960 FOBT 1960 SDOH Screening 1960 Sigmoidoscopy 1960 Alcohol/Substance Use Screening 1972 Tobacco Screening 1972 Hepatitis C Screening 01/08/1978 DTaP/Tdap/Td Vaccines (1 - Tdap) 01/08/1979 Pap Smear 01/08/1981 Cervical Cancer Screening 01/08/1990 HPV/Cotest 01/08/1990 Mammogram 2000 Pneumococcal Vaccine: 50+ Ye ars (1 of 1 - PCV) 01/08/2010 Zoster Vaccines (1 of 2) 01/08/2010 COVID-19 Vaccine ( - 2023-2 5 season) 2025 Influenza Vaccine (#1) 2025 RSV Patients and Pa tients Aged 60 [...] patient's age to complete this topic Meningococcal B Vaccine Aged Out No l onger eligible based on patient's age to complete this topic Meningococcal Vaccine Aged Out No miguel andreina eligible based on patient's age to complete this topic RSV under 20 months Aged Out No longe r eligible based on patient's age to complete this topic Rotavirus Vaccines Aged Out No longer eligible based on patient's age to complete this topic Insurance [id number] [id number] AARP MEDICARE ADVANTAGE HMO Care Teams Curator Relationship Specialty Start Date End Date João Reyes MD [address] [place] [address] PCP - General Internal Medicine 04/18/23
--- OUTSIDE RECORDS SUMMARY | 2025-03-12 20:55 | XMS_ITS | Clinical Summary ---
Author Organization [facility] Address [address] [place] [id number] Phone Care Team Providers Care Senior Hris Analyst Name Role Phone João Reyes MD Primary Care Provider [phone] Social History Tobacco Use Types Packs/Day Years Used Date Smoking Tobacco: Never Assessed Education Answer Date Recorded Are you interested in more education? Not on erin e 08/09/2024 Are you concerned about learning? Not on file 08/09/2024 No 08/09/2024 No 08/09/2024 Digital Access Answer Date Recorded No 08/09/2024 No 08/09/2024 Reliable internet access at home? Not on file 08/09/2024 Device with a working camera? Not on file Comments Unknown Sex and Gender Information Value Date Recorded Sex Assigned at Female 08/28/2023 10:37 AM EDT Legal Sex Female 10:34 PM EDT Gender Identity Female 08/28/2023 10:37 AM EDT Sexual Orientation Straight 08/28/2023 10 :37 AM EDT Plan of Treatment Not on file Medical Devices [place] [id number] [facility] MEDICARE PART A & [facility] [place] [id number] [facility] REPLAC[facility] MEDICARE PART A & [place] [id number] [facility] MEDICARE PART A & B [facility] MED[facility] REPLACEMENT MEDICARE PART A & [place] [address] [place] [address] MEDICARE REPLACEMENT MEDICARE PART A & [place] [address] [place] [address] MEDICARE REPLACEMENT MEDICARE PART A & B Care Teams Senior Hris Analyst Relationship Specialty Start Date End Date João Reyes MD [address] [place] [address] [place] [address] PCP - General Internal Medicine 08/28/23 Additional Source Comments The information contained in this document represents components of the legal health record. It is not the complete legal health record.[facility]
== END 2025-03-12 15:45 | disposition home or self-care (01) ==
LOC: HO.HMCH 14:46
PROVIDERS: PCP Internal Medicine; Visit Provider Internal Medicine
DX: R60.0 Localized edema (principal)

== ENCOUNTER → 2025-03-12 14:45 | Outpatient (BNVA) | payer MEDICARE, SELFPAY | PROVIDERS: PCP Internal Medicine; Visit Provider Internal Medicine | DX: R60.0 Localized edema (principal) | CPT/HCPCS: 99212 ==